=== PATIENT | male | born 1940 | race Caucasian/White ===

== ENCOUNTER → 2020-03-07 10:37 | Outpatient (CLI) | payer MEDICARE, SELFPAY ==
--- NOTE | ~2020-03-07 | CT_ITS ---
EXAMINATION: CTA abdomen pelvis DATE: 03/07/2020 11:14 INDICATION: Abdominal aortic aneurysm without rupture. TECHNIQUE: Computed tomographic angiography (CTA) of the abdomen and pelvis was performed without and with 100 mL Omnipaque-350 intravenous contrast. Automated exposure control and iterative reconstruct ion technique were employed. The dose-length product was 1879.24 mGy-cm. Maximum intensity projection 3D-reconstructions of the aorta and other arteries were constructed by the technologist on a [employer] workstation. COMPARISON: CT abdomen and pelvis 02/27/2019 FINDINGS: The visualized portions of the lung bases demonstrate emphysema and mild atelectasis. No pl eural effusion. The heart size is normal. There are coronary artery calcifications. No pericardial ef fusion. There is a moderate-sized sliding hiatal hernia. The liver, gallbladder, spleen, pancreas, an d adrenal glands are normal. There is cortical thinning of the kidneys. There are cysts in the kidney s measuring up to 4.0 cm on the right. There is a 2.0 cm hemorrhagic cyst in right kidney. There is a 2.2 cm hemorrhagic cyst in left kidney. The prostate is moderately enlarged. There is diverticulosis of the colon without evidence of diverticulitis. There are no dilated loops of bowel. The appendix i s not visualized. There are changes of ventral hernia repair. There is a supraumbilical ventral herni a containing fat superior to the mesh. There is a 4.0 cm fusiform aneurysm of infrarenal aorta with s tent graft in expected position. No endoleak. There is no significant stenosis of the celiac axis, myers perior mesenteric artery, or the renal arteries. 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 There is lumbar dextroscoliosis and severe spondylosis. IMPRESSION: 1. 4.0 cm fusiform aneurysm of infrarenal aorta with stent graft in expected position, stable from . No endoleak. 2. Moderate-sized sliding hiatal hernia. 3. Supraumbilical ventral hernia containing fat. Reviewed, dictated and finalized at location B. OILER IMPRESSION: 1. 4.0 cm fusiform aneurysm of infrarenal aorta with stent graft in expected po sition, stable from 02/27/2019. No endoleak. 2. Moderate-sized sliding hiatal hernia. 3. Supraumbilical ventral hernia containing fat.
[2020-03-07 10:59] LABS: Estimated Glomerular Filt Rate > 60
== END ==
PROVIDERS: Visit Provider Specialist
DX: I71.4 Abdominal aortic aneurysm, without rupture (principal); K44.9 Diaphragmatic hernia without obstruction or gangrene; K43.9 Ventral hernia without obstruction or gangrene; Z95.828 Presence of other vascular implants and grafts
CPT/HCPCS: 74174; Q9967

== ENCOUNTER 2020-05-29 10:53 | Emergency (ER) | payer MEDICARE, SELFPAY ==
--- NOTE | ~2020-05-29 | XR_ITS ---
EXAMINATION: XR ribs RT 2V w CXR 2V INDICATION: Right lateral rib pain TECHNIQUE: Frontal and lateral views of chest and 3 views of the right ribs were obtained. COMPARISON: 03/13/2018 FINDINGS: The lungs are free of acute opacities. There is no pleural effusion or pneumothorax. The ca rdiomediastinal silhouette is normal. There is cranial migration of the right humeral head with respe ct to the glenoid, consistent with chronic rotator cuff tear.No displaced rib fracture is identified. Endoluminal stent is noted in the abdominal aorta. IMPRESSION: 1. No acute cardiopulmonary abnormality or evidence of displaced rib fracture. Reviewed, dictated and finalized at location B.
[2020-05-29 11:15] VITALS: BP 142/84; PULSE 82; RESP 16; TEMP 36.4; O2SAT 98
--- NOTE | 2020-05-29 12:13 | ED.FALL ---
HPI - Fall General Chief Complaint: Fall <Benita Treviño PA-C - Last Filed: 05/29/20 12:55> Stated Complaint: fall pain R rib and back pain <DUSTIN Bustos Last Filed: 05/29/20 12:55> Time Seen by Provider: 05/29/20 11:18 <DUSTIN Bustos Last Filed: 05/29/20 12:55> Source: patient <DUSTIN Bustos Last Filed: 05/29/20 12:55> Mode of arrival: ambulatory <DUSTIN Bustos Last Filed: 05/29/20 12:55> Limitations: no limitations <DUSTIN Bustos Last Filed: 05/29/20 12:55> History of Present Illness HPI Narrative: This is a 80 year old male that presents to the ER for ground level fall 2 days ago. Reports he tripped and fell in his garden. Reports he hit his right side on part of the landscaping. Reports since he has had right lateral rib pain. Denies prodromal symptoms, hitting his head, loss of consciousness, other injuries, weakness, or numbness. <DUSTIN Bustos Last Filed: 05/29/20 12:55> Related Data Home Medications: Home Medications Medication Instructions Recorded Confirmed blood sugar diagnostic #10 each 12/27/18 03/28/20 nitroglycerin 0.4 mg sublingual 0.4 mg SUBLINGUAL Q5M PRN 12/27/18 03/28/20 tablet ticagrelor 90 mg tablet 90 mg PO Q12H 12/27/18 03/28/20 tiotropium bromide 2.5 2 puff INHALATION DAILY 12/27/18 03/28/20 mcg/actuation mist for inhalation bimatoprost 0.01 % eye drops 1 drop EACH EYE DAILY 09/27/19 03/28/20 <DUSTIN Bustos Last Filed: 05/29/20 12:55> Allergies/Adverse Reactions: Allergies Allergy/AdvReac Type Severity Reaction Status Date / Time cefprozil Allergy Unknown Rash Verified 03/28/20 09:15 celecoxib Allergy Unknown Unknown Verified 03/28/20 09:15 erythromycin base Allergy Unknown Unknown Verified 03/28/20 09:15 lisinopril Allergy Unknown Unknown Verified 03/28/20 09:15 Penicillins Allergy Unknown Unknown Verified 03/28/20 09:15 Cephalosporins AdvReac Severe DIAHHREA Verified 03/28/20 09:15 Prmendi-Sye-Vxy Reductase AdvReac Intermediate Other Verified 03/28/20 09:15 Inhibitor <Benita Treviño PA-C - Last Filed: 05/29/20 12:55> Review of Systems Review of Systems: Narrative: CONSTITUTIONAL: Denies fever MUSCULOSKELETAL: Reports joint pain, and myalgia. NEUROLOGIC: Denies numbness, or weakness. <Benita Treviño PA-C - Last Filed: 05/29/20 12:55> All systems reviewed & are unremarkable except as noted in HPI and below <Benita Treviño PA-C - Last Filed: 05/29/20 12:55> [facility] Past Medical History Medical History: Medical History Abscess of skin and subcutaneous tissue BPH loc w urin obs/LUTS COPD mixed type Epithelial inclusion cyst Former smoker GERD with esophagitis History of alcoholism Hypertension 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 thyroid function test senior care (current) use of 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/antiplatelets Lumbar spinal stenosis NICOLE on CPAP Osteoarthritis Presence of stent in coronary artery in patient with coronary artery disease PUD (peptic ulcer disease) PVD (peripheral vascular disease) with claudication Stable angina Type 2 diabetes mellitus <Benita Treviño PA-C - Last Filed: 05/29/20 12:55> Surgical History Surgical History: Surgical History H/O abdominal aortic aneurysm repair History of colon resection History of heart artery stent History of hernia surgery History of incision and drainage 03/14/20 back abscess History of total right hip arthroplasty S/P right rotator cuff repair <Benita Treviño PA-C - Last Filed: 05/29/20 12:55> Family History Family History: Family History Mother Family history of migraine headaches Hypertension Grandparent Hypertension Acute myocardial infarction Sibling Hypertension <Benita Treviño, DUSTIN - Lisbeth
== END 2020-05-29 13:10 | disposition home or self-care (01) ==
PROVIDERS: Emergency Provider General Practice; PCP Physician Assistant
DX: S20.211A Contusion of right front wall of thorax, initial encounter (principal); E11.51 Type 2 diabetes mellitus with diabetic peripheral angiopathy without gangrene; J44.9 Chronic obstructive pulmonary disease, unspecified; I10 Essential (primary) hypertension; I25.10 Atherosclerotic heart disease of native coronary artery without angina pectoris; N40.1 Benign prostatic hyperplasia with lower urinary tract symptoms; N13.8 Other obstructive and reflux uropathy; K21.00 Gastro-esophageal reflux disease with esophagitis, without bleeding; E03.9 Hypothyroidism, unspecified; G47.33 Obstructive sleep apnea (adult) (pediatric); M19.90 Unspecified osteoarthritis, unspecified site; Z95.5 Presence of coronary angioplasty implant and graft; Z87.11 Personal history of peptic ulcer disease; W01.198A Fall on same level from slipping, tripping and stumbling with subsequent striking against other object, initial encounter; Y93.H2 Activity, gardening and landscaping; Z87.891 Personal history of nicotine dependence; Z90.49 Acquired absence of other specified parts of digestive tract; Z96.641 Presence of right artificial hip joint; Z79.84 Long term (current) use of oral hypoglycemic drugs
CPT/HCPCS: 71046; 71100; 99283

== ENCOUNTER 2020-10-31 23:27 | Inpatient (IN) | payer MEDICARE, SELFPAY ==
--- NOTE | ~2020-10-31 | XR_ITS ---
EXAMINATION: XR abdomen obstructive series DATE: 11/02/2020 09:31 INDICATION: Constipation TECHNIQUE: Upright and supine views of the abdomen were obtained. COMPARISON: CT from yesterday FINDINGS: Multiple dilated loops of small bowel are present in the midabdomen. There is no free intra peritoneal gas. There is atelectasis of the lung bases. Changes of endoluminal aortobiiliac stent gra ft repair and mesh ventral hernia repair are noted. There is a total right hip arthroplasty. IMPRESSION: 1. Dilated small bowel consistent with ileus versus obstruction. Reviewed, dictated and finalized at location A.
--- NOTE | ~2020-10-31 | CT_ITS ---
EXAMINATION: CT diagnostic chest wo con DATE: 11/02/2020 01:02 INDICATION: Increasing oxygen demand TECHNIQUE: Computed tomography (CT) of the chest was performed without intravenous contrast. The dose -length product (DLP) was 556.96 mGy-cm. Automated exposure control and iterative reconstruction tech nique were employed. COMPARISON: None FINDINGS: There is moderate emphysema. There are dependent airspace opacities of the lungs, right gre ater than left. No pleural effusion or pneumothorax is identified. No pathologically enlarged thoraci c lymph nodes are identified. The heart size is normal. Calcified coronary artery atherosclerosis is noted. There is a 3.9 cm cyst of the right kidney. A moderate-sized sliding hiatal hernia is noted. T here is severe thoracic spondylosis. There are healing fractures of the right seventh through 10th ri bs. There is a questionable nondisplaced posterior fracture of the right 11th rib. There is advanced osteoarthritis of the right shoulder. IMPRESSION: 1. Dependent airspace opacities of the lungs which could reflect atelectasis and/or aspiration pneumo shay. 2. Healing right seventh through 10th rib fractures and possible nondisplaced 11th rib fracture. Reviewed, dictated and finalized at location A. IMPRESSION: 1. Dependent airspace opacities of the lungs which could reflect atelectasis an d/or aspiration pneumonia. 2. Healing right seventh through 10th rib fractures and possible nondisplaced 1 1th rib fracture.
--- NOTE | ~2020-10-31 | XR_ITS ---
EXAMINATION: XR abdomen NG/feed tube insert INDICATION: Nasogastric tube placement TECHNIQUE: Portable AP KUB-NG at 1123 hours COMPARISON: 0924 hours FINDINGS: The nasogastric tube is in the stomach. Multiple dilated loops of bowel are again seen. The re are airspace opacities of the visualized lung bases. IMPRESSION: 1. Nasogastric tube in the stomach. 2. Dilated small bowel consistent with ileus versus obstruction. Reviewed, dictated and finalized at location A.
--- NOTE | ~2020-10-31 | XR_ITS ---
SMALL BOWEL SERIES ONLY INDICATION: Small bowel obstruction. TECHNIQUE: Serial plain films and fluoroscopic spot films are performed following NG tube administrat ion of water-soluble contrast. COMPARISON: 11/03/2020 FINDINGS: There is mildly dilated proximal small bowel, although no specific transition site is ident ified. There is normal passage of water-soluble contrast through the small bowel to the colon of less than 1 hour. There is an aortic endovascular stent. There are changes of ventral abdominal wall hernia. There is a moderate size hiatal hernia with gastroesophageal reflux. IMPRESSION: 1: No definite bowel obstruction. Mildly dilated proximal small bowel may represent ileus. Normal pa ssage of contrast through the bowel to colon of less than 1 hour. 2: Moderate size hiatal hernia with gastroesophageal reflux. Reviewed, dictated and finalized at location A. IMPRESSION: 1: No definite bowel obstruction. Mildly dilated proximal small bowel may repr esent ileus. Normal passage of contrast through the bowel to colon of less than 1 hour. 2: Moderate size hiatal hernia with gastroesophageal reflux.
--- NOTE | ~2020-10-31 | XR_ITS ---
EXAMINATION: XR abdomen obstructive series DATE: 11/03/2020 10:21 INDICATION: Dilated small bowel. TECHNIQUE: Upright and supine views of the abdomen were obtained. COMPARISON: CT abdomen and pelvis 11/01/2020, radiographs 11/02/2020 FINDINGS: There are dilated loops of small bowel. There are surgical clips from ventral hernia repair . There is a stent graft in abdominal aorta. There is gaseous distention of the colon. No free intrap eritoneal gas. There is a total right hip arthroplasty. The nasogastric tube tip is in the stomach. IMPRESSION: 1. Dilated small and large bowel, likely adynamic ileus. Reviewed, dictated and finalized at location A.
--- NOTE | ~2020-10-31 | CT_ITS ---
EXAMINATION: CT abdomen pelvis w con INDICATION: Generalized abdominal pain and diarrhea TECHNIQUE: Computed tomographic images of the abdomen and pelvis were obtained after the administrati on of 100 cc of Omnipaque 350 intravenous contrast. The dose-length product (DLP) was 1043.57 mGy-cm. Automated exposure control and iterative reconstruction technique were employed. COMPARISON: 03/07/2020 FINDINGS: Minimal dependent atelectasis is present in the lung bases. The heart size is normal. Coron mary ann artery stents are noted. There are geographic areas of low attenuation throughout the spleen. The liver, pancreas, gallbladder, and adrenal glands are normal. There is a moderate-sized sliding hiata l hernia. Cysts of the kidneys measure up to 4 cm on the right. There is a 4.2 cm fusiform infrarenal abdominal aortic aneurysm with an aortobiiliac stent graft in expected position. No pathologically e nlarged abdominal or pelvic lymph nodes are identified. There is no free intraperitoneal gas or evide nce of bowel obstruction. There are changes of right total hip arthroplasty. There is severe lumbar s pondylosis. Changes of mesh ventral hernia repair are noted. IMPRESSION: 1. Geographic areas of low-attenuation in the spleen, likely reflecting infarction. Reviewed, dictated and finalized at location A. IMPRESSION: 1. Geographic areas of low-attenuation in the spleen, likely reflecting infarct ion.
[2020-10-31 23:29] VITALS: BP 144/88; PULSE 60; RESP 18; TEMP 36.1; O2SAT 95
[2020-10-31 23:47] LABS: Hematocrit 36.2 % (42.0-52.0); Hemoglobin 11.8 g/dL (14.0-18.0); Mean Corpuscular HGB Conc 32.6 g/dl (32-36); Mean Corpuscular Hemoglobin 29.1 pg (26-34); Mean Corpuscular Volume 89.2 fl (80-100); Mean Platelet Volume 9.9 fl (7.4-10.4); Platelet Count Result 227 k/mm3 (150-375); Red Blood Count 4.06 M/mm3 (4.6-6.20); White Blood Count 24.8 K/mm3 (4.5-10.0)
[2020-11-01] VITALS (24 sets, daily range): BP systolic 118–169; BP diastolic 56–120; PULSE 61–89; RESP 14–23; TEMP 36.1–37.1; O2SAT 91–100; BMI 28.8
[2020-11-01 00:10] LABS: Band Neutrophils Percent 15 % (0-6); Lymphocytes Absolute Manual 2.23 K/mm3 (1.1-4.5); Monocytes Absolute Manual 1.24 K/mm3 (0.1-0.90); Monocytes Percent Manual 5 % (3-9); Neutrophils Absolute Manual 21.32 K/mm3 (1.3-6.7); Neutrophils Percent Manual 71 % (46-73); Platelet Estimate Adequate (Adequate); Total Cells Counted 100
[2020-11-01 00:15] LABS: Alanine Aminotransferase 21 U/L (4-50); Albumin Level 3.8 g/dL (3.5-5.1); Alkaline Phosphatase 80 U/L (38-126); Anion Gap 11 mmol/L (8-16); Aspartate Amino Transferase 29 U/L (17-59); Bilirubin,Total 0.6 mg/dL (0.2-1.3); Blood Urea Nitrogen 17 mg/dL (9-20); Calcium 8.8 mg/dL (8.4-10.2); Carbon Dioxide 24 mmol/L (22-30); Chloride 99 mmol/L (98-107); Estimated CRCL calculation 61 ml/min; Estimated Glomerular Filt Rate > 60; Glucose 225 mg/dL (65-110); Lipase 109 U/L (23-300); Potassium 3.3 mmol/L (3.4-5.0); Sodium 134 mmol/L (137-145)
--- NOTE | 2020-11-01 01:48 | PC.NURSE ---
pt reports taking immodium for diarrhea last week. now c/o abd pain x last 3 hours. unable to recall last bowel movement.
[2020-11-01 02:19] LABS: Lactic Acid Reflex 1.2 mmol/L (0.7-2.1)
--- NOTE | 2020-11-01 03:36 | ED.GENADULT ---
HPI - General Adult General Chief complaint: Abdominal Pain Stated complaint: Abd pain, nausea Time Seen by Provider: 11/01/20 01:54 History of Present Illness HPI narrative: Patient is a 80-year-old gentleman who presents to the emergency department with chief complaint of abdominal pain. Patient reports for the last several days has been having diarrhea he has been taking Imodium for this [id number]. Patient states tonight his diarrhea has subsequently slowed down and reports that he has had some nausea and had one episode of. Patient denies fever denies chills denies localizing abdominal pain and reports that the diarrhea did not contain blood. Related Data Home Medications Medication Instructions Recorded Confirmed blood sugar diagnostic #10 each 12/27/18 09/12/20 nitroglycerin 0.4 mg sublingual 0.4 mg SUBLINGUAL Q5M PRN 12/27/18 09/12/20 tablet metformin 500 mg tablet,extended 1,000 mg PO BID tablet 09/12/20 09/12/20 release 24 hr Allergies Allergy/AdvReac Type Severity Reaction Status Date / Time cefprozil Allergy Unknown Rash Verified 09/12/20 14:31 celecoxib Allergy Unknown Unknown Verified 09/12/20 14:31 erythromycin base Allergy Unknown Unknown Verified 09/12/20 14:31 lisinopril Allergy Unknown Unknown Verified 09/12/20 14:31 Penicillins Allergy Unknown Unknown Verified 09/12/20 14:31 Cephalosporins AdvReac Severe DIAHHREA Verified 09/12/20 14:31 Mllkeid-Mmk-Bkf Reductase AdvReac Intermediate Other Verified 09/12/20 14:31 Inhibitor Review of Systems Review of Systems: A 10 system review of systems was completed on the patient and is negative except for what is stated in the HPI. Nursing and ancillary documentation was reviewed. [facility] Past Medical History Medical History Abscess of skin and subcutaneous tissue BPH loc w urin obs/LUTS CAD (coronary artery disease) COPD mixed type Epithelial inclusion cyst Former smoker GERD with esophagitis History of alcoholism Hypertension 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 thyroid function test senior living (current) use of 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/antiplatelets Lumbar spinal stenosis NICOLE on CPAP Osteoarthritis Presence of stent in coronary artery in patient with coronary artery disease PUD (peptic ulcer disease) PVD (peripheral vascular disease) with claudication Stable angina Type 2 diabetes mellitus Surgical History Surgical History H/O abdominal aortic aneurysm repair History of colon resection History of heart artery stent History of hernia surgery History of incision and drainage 03/14/20 back abscess History of total right hip arthroplasty S/P right rotator cuff repair Family History Family History Mother Family history of migraine headaches Hypertension Grandparent Hypertension Acute myocardial infarction Sibling Hypertension Social History Social History Second hand tobacco smoke exposure: No Smoking end date: 02/14/97 Alcohol intake: former Drinks per week: 0 Substance use: never Substance use type: does not use Gender identity (if verbalized by the patient): Male Exam Narrative: GENERAL: Well-appearing, well-nourished, and in no acute distress. HEAD: Normocephalic, atraumatic. EYES: PERRLA and EOMI. ENT: Nares clear, no rhinorrhea or epistaxis. Mucous membranes moist. NECK: Supple. CHEST: Clear to auscultation. No respiratory distress. HEART: Regular rate and rhythm. No murmur heard. Normal peripheral pulses. ABDOMEN: Soft, nontender, nondistended, normal active bowel sounds. EXTREMITIES: Normal range of motion. No edema. SKIN: Warm, dry, no rash. NEURO: No focal deficits. Alert and oriented x3. PSYCH: Normal mood and affect. Course Course Emergency Course: CT id
[2020-11-01 03:45] LABS: Add Urine Microscopic? YES; Appearance Urine Clear (Clear); Bilirubin Urine Negative (Negative); Blood Urine Negative (Negative); Color Urine Colorless (Yellow); Glucose Urine UA 3+ mg/dL (Negative); Ketones Urine Trace mg/dL (Negative); Leukocyte Esterase Ur Negative LEU/UL (Negative); Nitrate Urine Negative (Negative); Protein Urine Negative (Negative); RBC Urine 0-2 /hpf (0-2); Urobilinogen Urine Negative mg/dL (<2.0); WBC Urine 0-3 /hpf
[2020-11-01 03:52] LABS: Specific Grav Ur 1.045 (1.001-1.035)
--- NOTE | 2020-11-01 04:09 | PM.IMHP ---
H&P: HPI History of Present Illness Date/Time: 11/01/20 04:09 Chief Complaint: ABDOMINAL PAIN Narrative: THIS IS A 80-YEAR-OLD MALE WITH PAST MEDICAL HISTORY SIGNIFICANT FOR PERIPHERAL VASCULAR DISEASE, STATUS POST BILATERAL FEMORAL BYPASS, AAA STATUS POST REPAIR, OBSTRUCTIVE SLEEP APNEA ON CPAP AT NIGHTTIME TYPE 2 DIABETES MELLITUS, COPD/EMPHYSEMA. PATIENT PRESENTED TO THE EMERGENCY ROOM DUE TO ABDOMINAL PAIN WHICH IS LOCALIZED IN THE PERIUMBILICAL AREA PATIENT HAD HAS HAD DIARRHEA NOW FOR ROUGHLY 2 WEEKS HE STARTED TAKING IMODIUM AND DIARRHEA SUBSIDED HE DENIES ANY FEVERS, ANY RIGORS, ANY CHILLS, NO BLOOD IN THE STOOLS, NO SHORTNESS OF BREATH, NO COUGH, NO SPUTUM PRODUCTION, NO NAUSEA, NO VOMITING HE HAS BEEN ABLE TO TOLERATE HIS MEALS. PRELIMINARY WORKUP WAS SIGNIFICANT FOR A WHITE CELL COUNT OF 24,800, POTASSIUM OF 3.[address] OF ABDOMEN AND PELVIS SHOWS SPLENIC INFARCT A LACTIC ACID WAS 1.2. DECISION HAS BEEN MADE TO PLACE THE PATIENT IN OBSERVATION. Review of Systems Review of Systems: DIARRHEA ABDOMINAL PAIN Constitutional: Constitutional: Denies chills, Denies fatigue, Denies fever(s), Denies malaise and Denies weakness Eyes: Eyes: Denies change in vision ENT: Denies dysphagia and Denies odynophagia Cardiovascular: Cardiovascular: Denies lightheadedness, Denies radiating jaw, neck or arm pain, Denies palpitations, Denies dyspnea, Denies dyspnea on exertion and Denies orthopnea Respiratory: Respiratory: Denies cough and Denies dyspnea Gastrointestinal: Gastrointestinal: Reports abdominal pain, Reports diarrhea, Denies nausea and Denies vomiting Genitourinary: Genitourinary: Reports no additional male genitourinary complaints Musculoskeletal: Musculoskeletal: Reports no additional musculoskeletal complaints Integumentary/Breasts: Skin/Breast: Reports system reviewed and no additional complaints, except as docu Neurologic: Reports system reviewed and no additional complaints, except as documented Psychiatric: Psychiatric: Reports no additional psychiatric complaints Endocrine: Endocrine: Reports no additional endocrine complaints Hematologic/Lymphatic: Hematologic/Lymphatic: Reports no additional hematologic/lymphatic complaints Allergic/Immunologic: Allergic/Immunologic: Reports no additional allergic/immunologic complaints PMFSH Past Medical History Medical History (Updated 11/01/20 @ 04:44 by Shahriar Bullard MD) Abscess of skin and subcutaneous tissue BPH loc w urin obs/LUTS CAD (coronary artery disease) COPD mixed type Epithelial inclusion cyst Former smoker GERD with esophagitis History of alcoholism Hypertension 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 thyroid function test longterm (current) use of 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/antiplatelets Lumbar spinal stenosis NICOLE on CPAP Osteoarthritis Presence of stent in coronary artery in patient with coronary artery disease PUD (peptic ulcer disease) PVD (peripheral vascular disease) with claudication Stable angina Type 2 diabetes mellitus Surgical History Surgical History H/O abdominal aortic aneurysm repair History of colon resection History of heart artery stent History of hernia surgery History of incision and drainage 03/14/20 back abscess History of total right hip arthroplasty S/P right rotator cuff repair Family History Family History Mother Family history of migraine headaches Hypertension Grandparent Hypertension Acute myocardial infarction Sibling Hypertension Social History Social History Smoking packs per day: 2 Smoking cigarettes per day: 40.0 Years smoked: 40 Smoking pack-years: 80.00 Smoking status: Former smoker Second hand tobacco smoke exposure: No Smoking end date: 02/14/97 Alcohol intake: never Drinks per week: 0 Substance use: feroz
[2020-11-01 04:32] LABS: INR 1.2; Prothrombin Time 14.6 Seconds (11.1-14.7)
[2020-11-01 04:33] LABS: Partial Thromboplastin Time 32.2 SECONDS (22.3-36.8)
--- NOTE | 2020-11-01 04:39 | PC.NURSE ---
Pt's provided with room number and hospital phone number, and verbalized understanding that she will call back with correct dosages of pt's brillinta and spiriva.
[2020-11-01] MEDS: SODIUM CHLORIDE 0.9% IV 1,000 ML 125 ML IV CONT (05:00)
[2020-11-01] MEDS: MORPHINE SULFATE (*CRX) 4 MG/ML INJ IV PUSH ×3 (05:00→08:59)
[2020-11-01] MEDS: ONDANSETRON INJ 4 MG/2 ML VIAL IV PUSH (05:02)
[2020-11-01] MEDS: LEVOTHYROXINE SODIUM 125 MCG TABLET PO (06:36)
[2020-11-01 07:53] LABS: Glucose Point of Care 130 mg/dl (65-105)
[2020-11-01] MEDS: carvediloL 6.25 MG TABLET PO ×2 (08:47→20:57)
[2020-11-01] MEDS: ASPIRIN 81 MG ENTERIC TABLET PO (08:47)
[2020-11-01] MEDS: TAMSULOSIN HCL 0.4 MG CAPSULE PO (08:47)
[2020-11-01] MEDS: TICAGRELOR 90 MG TABLET PO ×2 (08:47→20:58)
[2020-11-01] MEDS: LOSARTAN POTASSIUM 25 MG TABLET PO (08:48)
[2020-11-01] MEDS: INSULIN ASPART (*BKC) 100 UNITS/ML SUB-Q ×3 (08:49→17:02)
--- NOTE | 2020-11-01 11:53 | PM.IMPN ---
Progress Note: A&P Assessment and Plan (1) Abdominal pain: Code(s): R10.9 - Unspecified abdominal pain Status: Acute Assessment and Plan: LACTIC ACID IS 1.2 ABDOMEN IS BENIGN ON PHYSICAL EXAM PLACE IN OBSERVATION IV FLUIDS CT ABDOMEN AND PELVIS ordered (2) Infarction of spleen: Code(s): D73.5 - Infarction of spleen Status: Acute Assessment and Plan: LACTIC ACID IS 1.2 PHYSICAL EXAM NO NO CYANOSIS PATENT PULSES 2+ ALL THROUGHOUT CONTINUE TO MONITOR (3) CAD (coronary artery disease): Qualifiers: Coronary Disease-Associated Artery/Lesion type: unspecified vessel or lesion type [place] vs. transplanted heart: [place] heart Associated angina: with stable angina Qualified Code(s): I25.118 - Atherosclerotic heart disease of [place] coronary artery with other forms of angina pectoris Code(s): I25.10 - Atherosclerotic heart disease of [place] coronary artery without angina pectoris Status: Acute Assessment and Plan: CHEST PAIN-FREE RESUME HOME MEDS CONTINUE TICAGRELOR (4) Presence of stent in coronary artery in patient with coronary artery disease: Code(s): I25.10 - Atherosclerotic heart disease of [place] coronary artery without angina pectoris; Z95.5 - Presence of coronary angioplasty implant and graft Status: Acute Assessment and Plan: RESUME HOME MEDS STABLE (5) PVD (peripheral vascular disease) with claudication: Code(s): I73.9 - Peripheral vascular disease, unspecified Status: Acute Assessment and Plan: PATIENT IS STATUS POST BILATERAL FEMORAL BYPASS (6) Former smoker: Code(s): Z87.891 - Personal history of nicotine dependence Status: Acute Assessment and Plan: NICOTINE PATCH NEEDED (7) COPD mixed type: Code(s): J44.9 - Chronic obstructive pulmonary disease, unspecified Status: Acute Assessment and Plan: CONTINUE HOME MEDS NOT ACTIVELY WHEEZING (8) NICOLE on CPAP: Code(s): G47.33 - Obstructive sleep apnea (adult) (pediatric); Z99.89 - Dependence on other enabling machines and devices Status: Acute Assessment and Plan: CONTINUE CPAP (9) Type 2 diabetes mellitus: Qualifiers: Diabetes mellitus fpc insulin use: without terminal system operator use Diabetes mellitus complication status: with other specified complication Qualified Code(s): E11.69 - Type 2 diabetes mellitus with other specified complication Code(s): E11.9 - Type 2 diabetes mellitus without complications Status: Acute Assessment and Plan: ACCU-CHEKS AC AND HS CONTROL WITH ORAL AGENTS WILL HOLD METFORMIN AND PIOGLITAZONE INSULIN SLIDING SCALE NEEDED (10) GERD with esophagitis: Code(s): K21.0 - Gastro-esophageal reflux disease with esophagitis Status: Acute Subjective Date/time seen: 11/01/20 11:53 Patient was seen during the morning rounds today. Patient states that his abdominal pain is slightly better. No nausea or vomiting. No shortness of breath or chest pain. Mood stable. Review of Systems Review of Systems: All systems reviewed & are unremarkable except as noted in HPI and below (the history and physical examination.) Exam Narrative: PATIENT IS LAYING IN GURNEY Const: General: cooperative, comfortable, no acute distress, well developed, alert, awake and other (WELL-APPEARING) Nutritional Appearance: average body habitus Orientation/consciousness: patient oriented x3 HENMT: Head: normal to inspection, normocephalic and atraumatic Ears: hearing grossly normal bilaterally General nose exam: Normal external nose present Face and sinus: normal facial exam Eyes: General: appearance normal, both eyes and all related structures Alignment and Position: alignment normal Sclera: sclerae normal Pupils: Equal, round and reactive pupils present EOM: EOMs intact bilaterally Neck: Neck: normal visual inspection, full ROM, no lymphadenopathy, supple
[2020-11-01] MEDS: HYDROcodone/acetaminophen (*CRX) 10-325 MG TABLET 1 TAB PO (12:50)
[2020-11-01] MEDS: DOCUSATE SODIUM 100 MG CAPSULE PO ×2 (12:53→20:58)
[2020-11-01] MEDS: SODIUM CHLORIDE 0.9% IV 1,000 ML 50 ML IV CONT (12:56)
[2020-11-01 13:22] LABS: Glucose Point of Care 136 mg/dl (65-105)
[2020-11-01] MEDS: POTASSIUM CHLORIDE 20 MEQ PACKET (FOR LIQUID) 40 MEQ PO (14:22)
[2020-11-01] MEDS: metroNIDAZOLE 500 MG/ISO 100ML 500 MG/100 ML BAG 100 MG IVPB ×2 (15:32→20:58)
[2020-11-01] MEDS: levoFLOXacin 500 MG/D5W 100 ML 500 MG/100 ML BAG 100 MG IVPB (16:47)
[2020-11-01 18:19] LABS: Glucose Point of Care 165 mg/dl (65-105)
[2020-11-01] MEDS: HEPARIN SODIUM 5,000 UNITS/ML VIAL 5000 UNITS SUB-Q (20:58)
[2020-11-01 21:11] LABS: Glucose Point of Care 206 mg/dl (65-105)
--- NOTE | 2020-11-01 21:17 | PC.NURSE ---
Pt having increasing oxygen demands, no documented sp02 from days, pt not on oxygen normally at home, placed pt on 2L to maintain 91%. Pt does have a hx of sleep apnea and COPD. Respiratory called x2 to get a further assessment. Will continue to monitor and wait for respiratory comments.
[2020-11-02] MEDS: HYDROcodone/acetaminophen (*CRX) 10-325 MG TABLET 1 TAB PO (00:45)
[2020-11-02] MEDS: metroNIDAZOLE 500 MG/ISO 100ML 500 MG/100 ML BAG 100 MG IVPB ×4 (03:16→21:28)
[2020-11-02 05:33] LABS: Hematocrit 31.5 % (42.0-52.0); Hemoglobin 10.3 g/dL (14.0-18.0); Mean Corpuscular HGB Conc 32.7 g/dl (32-36); Mean Corpuscular Hemoglobin 29.1 pg (26-34); Mean Platelet Volume 10.1 fl (7.4-10.4); Platelet Count Result 195 k/mm3 (150-375); Red Blood Count 3.54 M/mm3 (4.6-6.20); Red Cell Distribution Width 15.2 % (11.5-14.5); White Blood Count 25.7 K/mm3 (4.5-10.0)
[2020-11-02 05:40] VITALS: BP 103/58; PULSE 75; RESP 20; TEMP 36.1; O2SAT 94
--- NOTE | 2020-11-02 05:50 | PC.NURSE ---
I made several calls to the CT department and notified live in housekeeper, SHADE Doss, that my patients CT report was never read. I was never called or faxed a report. The order was STAT and it has been over five hours without notification from [facility].
[2020-11-02 05:51] LABS: Alanine Aminotransferase 14 U/L (4-50); Alkaline Phosphatase 66 U/L (38-126); Anion Gap 8 mmol/L (8-16); Aspartate Amino Transferase 16 U/L (17-59); Bilirubin,Total 0.7 mg/dL (0.2-1.3); Blood Urea Nitrogen 17 mg/dL (9-20); Calcium 8.2 mg/dL (8.4-10.2); Carbon Dioxide 24 mmol/L (22-30); Chloride 102 mmol/L (98-107); Estimated CRCL calculation 44 ml/min; Estimated Glomerular Filt Rate > 60; Glucose 164 mg/dL (65-110); Potassium 3.7 mmol/L (3.4-5.0); Sodium 134 mmol/L (137-145)
[2020-11-02 05:57] LABS: Band Neutrophils Percent 7 % (0-6); Lymphocytes Absolute Manual 1.02 K/mm3 (1.1-4.5); Monocytes Absolute Manual 0.51 K/mm3 (0.1-0.90); Monocytes Percent Manual 2 % (3-9); Neutrophils Absolute Manual 24.15 K/mm3 (1.3-6.7); Neutrophils Percent Manual 87 % (46-73); Total Cells Counted 100
[2020-11-02 05:58] LABS: Platelet Estimate Adequate (Adequate)
[2020-11-02] MEDS: LEVOTHYROXINE SODIUM 125 MCG TABLET PO (06:13)
[2020-11-02] MEDS: INSULIN ASPART (*BKC) 100 UNITS/ML SUB-Q (08:15)
[2020-11-02] MEDS: TICAGRELOR 90 MG TABLET PO (08:17)
[2020-11-02 08:18] VITALS: PULSE 75
[2020-11-02] MEDS: ASPIRIN 81 MG ENTERIC TABLET PO (08:18)
[2020-11-02] MEDS: HEPARIN SODIUM 5,000 UNITS/ML VIAL 5000 UNITS SUB-Q ×2 (08:18→21:28)
[2020-11-02] MEDS: DOCUSATE SODIUM 100 MG CAPSULE PO (08:18)
[2020-11-02] MEDS: carvediloL 6.25 MG TABLET PO (08:18)
[2020-11-02] MEDS: LOSARTAN POTASSIUM 25 MG TABLET PO (08:18)
[2020-11-02] MEDS: TAMSULOSIN HCL 0.4 MG CAPSULE PO (08:18)
[2020-11-02 08:26] VITALS: O2SAT 92
[2020-11-02 08:35] LABS: Glucose Point of Care 179 mg/dl (65-105)
--- NOTE | 2020-11-02 10:43 | PM.IMPN ---
Progress Note: A&P Assessment and Plan (1) Abdominal pain: Code(s): R10.9 - Unspecified abdominal pain Status: Acute Assessment and Plan: 11/02/2020 three views abdominal today shows for possible ileus versus obstruction, will put NG tube and consult surgery. (2) Infarction of spleen: Code(s): D73.5 - Infarction of spleen Status: Acute Assessment and Plan: LACTIC ACID IS 1.2 PHYSICAL EXAM NO NO CYANOSIS PATENT PULSES 2+ ALL THROUGHOUT CONTINUE TO MONITOR (3) CAD (coronary artery disease): Qualifiers: Coronary Disease-Associated Artery/Lesion type: unspecified vessel or lesion type [place] vs. transplanted heart: [place] heart Associated angina: with stable angina Qualified Code(s): I25.118 - Atherosclerotic heart disease of [place] coronary artery with other forms of angina pectoris Code(s): I25.10 - Atherosclerotic heart disease of [place] coronary artery without angina pectoris Status: Acute Assessment and Plan: CHEST PAIN-FREE RESUME HOME MEDS CONTINUE TICAGRELOR (4) Presence of stent in coronary artery in patient with coronary artery disease: Code(s): I25.10 - Atherosclerotic heart disease of [place] coronary artery without angina pectoris; Z95.5 - Presence of coronary angioplasty implant and graft Status: Acute Assessment and Plan: RESUME HOME MEDS STABLE (5) PVD (peripheral vascular disease) with claudication: Code(s): I73.9 - Peripheral vascular disease, unspecified Status: Acute Assessment and Plan: PATIENT IS STATUS POST BILATERAL FEMORAL BYPASS (6) Former smoker: Code(s): Z87.891 - Personal history of nicotine dependence Status: Acute Assessment and Plan: NICOTINE PATCH NEEDED (7) COPD mixed type: Code(s): J44.9 - Chronic obstructive pulmonary disease, unspecified Status: Acute Assessment and Plan: CONTINUE HOME MEDS NOT ACTIVELY WHEEZING (8) NICOLE on CPAP: Code(s): G47.33 - Obstructive sleep apnea (adult) (pediatric); Z99.89 - Dependence on other enabling machines and devices Status: Acute Assessment and Plan: CONTINUE CPAP (9) Type 2 diabetes mellitus: Qualifiers: 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 mellitus 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 Will consult surgery and put NG tube. WBC count is slightly high. Will add vancomycin to Levaquin and Flagyl. Monitor electrolytes and CBC in the morning and repeat three views of the abdomen the morning. Subjective Date/time seen: 11/02/20 10:43 Patient was seen during the morning rounds today. Patient complained of having abdominal pain and distension. Was not able to have bowel movement. Patient is not passing gas. No shortness of breath or chest pain. No nausea or vomiting. Mood stable. Review of Systems Review of Systems: All systems reviewed & are unremarkable except as noted in HPI and below (the history and physical examination.) Constitutional: Constitutional: Denies chills, Denies fatigue, Denies fever(s), Denies malaise and Denies weakness Eyes: Eyes: Denies change in vision ENT: Denies dysphagia and Denies odynophagia Cardiovascular: Cardiovascular: Denies lightheadedness, Denies radiating jaw, neck or arm pain, Denies palpitations, Denies dyspnea, Denies dyspnea on exertion and Denies orthop
[2020-11-02] MEDS: KCL 20MEQ/0.9% SOD CHL 1,000 ML 100 ML IV CONT ×2 (10:58→21:28)
[2020-11-02 11:25] VITALS: O2SAT 92
[2020-11-02 11:26] LABS: Estimated CRCL calculation 49 ml/min; Estimated Glomerular Filt Rate > 60
[2020-11-02 12:39] LABS: Glucose Point of Care 181 mg/dl (65-105)
[2020-11-02] MEDS: levoFLOXacin 500 MG/D5W 100 ML 500 MG/100 ML BAG 100 MG IVPB (14:09)
[2020-11-02 15:15] VITALS: BP 111/89; PULSE 76; RESP 24; TEMP 36.4; O2SAT 95
[2020-11-02 18:05] LABS: Glucose Point of Care 117 mg/dl (65-105)
[2020-11-02 22:00] VITALS: BP 115/61; PULSE 78; RESP 16; TEMP 36.4; O2SAT 95
[2020-11-03] VITALS (7 sets, daily range): BP systolic 104–129; BP diastolic 55–70; PULSE 78–88; RESP 16–18; TEMP 36.7–36.9; O2SAT 90–96
[2020-11-03 00:53] LABS: Glucose Point of Care 159 mg/dl (65-105)
[2020-11-03] MEDS: metroNIDAZOLE 500 MG/ISO 100ML 500 MG/100 ML BAG 100 MG IVPB ×4 (03:04→21:33)
[2020-11-03 05:34] LABS: Hematocrit 31.3 % (42.0-52.0); Hemoglobin 10.2 g/dL (14.0-18.0); Mean Corpuscular HGB Conc 32.6 g/dl (32-36); Mean Corpuscular Hemoglobin 29.1 pg (26-34); Mean Corpuscular Volume 89.4 fl (80-100); Mean Platelet Volume 9.9 fl (7.4-10.4); Platelet Count Result 199 k/mm3 (150-375); Red Cell Distribution Width 15.2 % (11.5-14.5); White Blood Count 22.1 K/mm3 (4.5-10.0)
[2020-11-03 05:45] LABS: Alanine Aminotransferase 12 U/L (4-50); Albumin Level 2.8 g/dL (3.5-5.1); Alkaline Phosphatase 71 U/L (38-126); Anion Gap 7 mmol/L (8-16); Aspartate Amino Transferase 16 U/L (17-59); Bilirubin,Total 0.5 mg/dL (0.2-1.3); Blood Urea Nitrogen 16 mg/dL (9-20); Calcium 8.1 mg/dL (8.4-10.2); Carbon Dioxide 20 mmol/L (22-30); Chloride 104 mmol/L (98-107); Estimated CRCL calculation 54 ml/min; Estimated Glomerular Filt Rate > 60; Glucose 138 mg/dL (65-110); Potassium 3.8 mmol/L (3.4-5.0); Sodium 131 mmol/L (137-145)
[2020-11-03] MEDS: LEVOTHYROXINE SODIUM INJ 100 MCG/5 ML VIAL 62.5 MCG IV PUSH (06:17)
[2020-11-03] MEDS: ONDANSETRON INJ 4 MG/2 ML VIAL IV PUSH (06:19)
[2020-11-03 07:00] LABS: Glucose Point of Care 144 mg/dl (65-105)
--- NOTE | 2020-11-03 08:49 | PM.CNGS ---
Assessment and Plan Assessment and plan (1) Small bowel obstruction: Code(s): K56.609 - Unspecified intestinal obstruction, unspecified as to partial versus complete obstruction Status: Acute Assessment and Plan: will get SBS thru NG for further evaluation (2) Leukocytosis: Code(s): D72.829 - Elevated white blood cell count, unspecified Status: Acute Assessment and Plan: ? etiology, on broad spectrum abx per primary team History of Present Illness Consult details Consult date: 11/03/20 Reason for consult: abdominal pain Requesting physician: Cal Espitia MD Narrative: Pt is a 80 y/o M c multiple med issues presenting c/o diffuse abdominal pain R>L. Pt reports pain has been off and on over last wk or two. Pt reports pain was initially associated c diarrhea but he has since not had a BM for at least a wk. Pt reports some nausea and emesis. Pt denies previous episodes. Pt has been admitted and NG has been placed at this time. Review of Systems Constitutional: Constitutional: Denies anorexia, Denies chills, Reports fatigue, Denies fever(s), Reports malaise, Reports poor appetite, Reports weakness, Denies weight gain and Denies weight loss Eyes: Eyes: Reports no additional eye complaints ENT: Reports system reviewed and no additional complaints, except as documented Cardiovascular: Cardiovascular: Reports no additional cardiovascular complaints Respiratory: Respiratory: Reports no additional respiratory complaints Gastrointestinal: Gastrointestinal: Reports as per HPI, Reports abdominal pain, Reports belching, Reports bloating, Reports change in stool character, Reports constipation, Reports GI cramping, Reports early satiety, Reports diarrhea, Reports nausea and Reports vomiting Genitourinary: Genitourinary: Reports no additional male genitourinary complaints Musculoskeletal: Musculoskeletal: Reports no additional musculoskeletal complaints Integumentary/Breasts: Skin/Breast: Reports system reviewed and no additional complaints, except as docu Neurologic: Reports system reviewed and no additional complaints, except as documented Psychiatric: Psychiatric: Reports no additional psychiatric complaints Endocrine: Endocrine: Reports no additional endocrine complaints Hematologic/Lymphatic: Hematologic/Lymphatic: Reports no additional hematologic/lymphatic complaints Allergic/Immunologic: Allergic/Immunologic: Reports no additional allergic/immunologic complaints PMFSH Past Medical History Medical History Abscess of skin and subcutaneous tissue BPH loc w urin obs/LUTS CAD (coronary artery disease) COPD mixed type Epithelial inclusion cyst Former smoker GERD with esophagitis History of alcoholism Hypertension 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 thyroid 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/antiplatelets Lumbar spinal stenosis NICOLE on CPAP Osteoarthritis Presence of stent in coronary artery in patient with coronary artery disease PUD (peptic ulcer disease) PVD (peripheral vascular disease) with claudication Stable angina Type 2 diabetes mellitus Surgical History Surgical History H/O abdominal aortic aneurysm repair History of colon resection History of heart artery stent History of hernia surgery History of incision and drainage 03/14/20 back abscess History of total right hip arthroplasty S/P right rotator cuff repair Family History Family History Mother Family history of migraine headaches Hypertension Colon cancer Grandparent Acute myocardial infarction Hypertension Sibling Hypertension Brain aneurysm Father Myocardial infarction Social History Social History Smoking packs per day: 2 Smoking cigarettes per day: 40.0 Years smoke
[2020-11-03] MEDS: KCL 20MEQ/0.9% SOD CHL 1,000 ML 100 ML IV CONT (09:15)
[2020-11-03] MEDS: PANTOPRAZOLE SODIUM IV 40 MG VIAL IV PUSH (09:17)
[2020-11-03] MEDS: HEPARIN SODIUM 5,000 UNITS/ML VIAL 5000 UNITS SUB-Q ×2 (09:17→21:23)
[2020-11-03 11:58] LABS: Glucose Point of Care 131 mg/dl (65-105)
[2020-11-03] MEDS: levoFLOXacin 500 MG/D5W 100 ML 500 MG/100 ML BAG 100 MG IVPB (14:02)
[2020-11-03 16:52] LABS: Glucose Point of Care 124 mg/dl (65-105)
--- NOTE | 2020-11-03 18:32 | PM.IMPN ---
Progress Note: A&P Assessment and Plan (1) Small bowel obstruction: Code(s): K56.609 - Unspecified intestinal obstruction, unspecified as to partial versus complete obstruction Status: Acute (2) Leukocytosis: Code(s): D72.829 - Elevated white blood cell count, unspecified Status: Acute Assessment and Plan: Likely reactive in the setting of acute ileus. Continue levaquin and flagyl. Stop the vancomycin. (3) Abdominal pain: Code(s): R10.9 - Unspecified abdominal pain Status: Acute Assessment and Plan: 11/02/2020 three views abdominal Xray shows for possible ileus versus obstruction. Currently patient having bowel movements. Abdomen improving clinically. Continue NG tube suction. Follow up surgery recommendations.. (4) Infarction of spleen: Code(s): D73.5 - Infarction of spleen Status: Acute Assessment and Plan: Patient is hemodynamically stable with improvement of abdominal symptoms. Continue to monitor. (5) CAD (coronary artery disease): Qualifiers: Coronary Disease-Associated Artery/Lesion type: unspecified vessel or lesion type [place] vs. transplanted heart: [place] heart Associated angina: with stable angina Qualified Code(s): I25.118 - Atherosclerotic heart disease of [place] coronary artery with other forms of angina pectoris Code(s): I25.10 - Atherosclerotic heart disease of [place] coronary artery without angina pectoris Status: Acute Assessment and Plan: Currently asymptomatic. Continue home ticagrelor. (6) Presence of stent in coronary artery in patient with coronary artery disease: Code(s): I25.10 - Atherosclerotic heart disease of [place] coronary artery without angina pectoris; Z95.5 - Presence of coronary angioplasty implant and graft Status: Acute Assessment and Plan: Resume home medications. (7) PVD (peripheral vascular disease) with claudication: Code(s): I73.9 - Peripheral vascular disease, unspecified Status: Acute Assessment and Plan: s/p post bilateral femoral bypass. (8) Former smoker: Code(s): Z87.891 - Personal history of nicotine dependence Status: Acute Assessment and Plan: Nicotine patch as needed. (9) COPD mixed type: Code(s): J44.9 - Chronic obstructive pulmonary disease, unspecified Status: Acute Assessment and Plan: Currently asymptomatic. Saturates well on oxygen 2 liters.. Continue home medications. (10) NICOLE on CPAP: Code(s): G47.33 - Obstructive sleep apnea (adult) (pediatric); Z99.89 - Dependence on other enabling machines and devices Status: Acute Assessment and Plan: Continue CPAP per home parameters. 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 Currently on insulin sliding scale as needed. Monitor accu-checks AC and HS. Control with oral agents. Continue to hold metformin and pioglitazone. Accuchecks in the 117-159 range. No episode of hypoglycemia. (12) GERD with esophagitis: Code(s): K21.0 - Gastro-esophageal reflux disease with esophagitis Status: Acute Additional Plan 11/02/2020 three views of the abdomen shows ileus versus obstruction. Will consult surgery and put NG tube. WBC count is slightly high. Will add vancomycin to Levaquin and Flagyl. Monitor electrolytes and CBC in the morning and repeat three views of the abdomen the morning. Subjective Date/time seen: 11/03/20 17:30 This is a 80-year old gentleman with peripheral vascular disease, s/p bilateral femoral bypass, AAA status s/p repair, NICOLE on CPAP, NIDDM, CO
[2020-11-03 22:25] LABS: Glucose Point of Care 122 mg/dl (65-105)
[2020-11-04] MEDS: KCL 20MEQ/0.9% SOD CHL 1,000 ML 100 ML IV CONT ×2 (01:40→13:50)
[2020-11-04] MEDS: metroNIDAZOLE 500 MG/ISO 100ML 500 MG/100 ML BAG 100 MG IVPB ×4 (01:53→22:54)
[2020-11-04 06:00] VITALS: BP 131/79; PULSE 77; RESP 16; TEMP 36.8; O2SAT 93
[2020-11-04] MEDS: LEVOTHYROXINE SODIUM INJ 100 MCG/5 ML VIAL 62.5 MCG IV PUSH (06:26)
[2020-11-04 08:03] VITALS: O2SAT 90
[2020-11-04 08:58] LABS: Glucose Point of Care 133 mg/dl (65-105)
--- NOTE | 2020-11-04 09:15 | PM.PNGS ---
Progress Note: A&P Assessment and Plan (1) Small bowel obstruction: Code(s): K56.609 - Unspecified intestinal obstruction, unspecified as to partial versus complete obstruction Status: Acute Assessment and Plan: Pt clinically improving. +BM, abd exam benign. SBS showed contrast moving to the colon in 1 hr. Will clamp NG today and if he tolerates this, then will remove NG tube and ADAT. Encouraged walking the halls, increasing activity. (2) Leukocytosis: Code(s): D72.829 - Elevated white blood cell count, unspecified Status: Acute Assessment and Plan: Unclear etiology. WBC trending down, no labs in yet this morning. Continue broad-spectrum IV abx per primary team. Additional Plan I have discussed the plan of care with Dr. Yañez. Subjective Subjective Date/Time Seen: 11/04/20 09:15 Patient reports: no new complaints, feels better, pain is less, flatus and bowel movement Interval history: Patient seen and examined this morning. He reports feeling much better than on admission. Reports 8-9 bowel movements since the contrast study. Abdominal pain and bloating has improved significantly. Now reporting just soreness in the right abdomen. No other complaints at this time. Review of Systems Gastrointestinal: Gastrointestinal: Reports as per HPI, Reports no additional gastrointestinal complaints, Denies hematochezia, Denies nausea and Denies vomiting Exam Const: General: comfortable and no acute distress Orientation/consciousness: patient oriented x3 Resp: Effort & Inspection: normal respiratory effort Auscultation: clear to auscultation bilaterally Cardio: Rate: regular rate Rhythm: regular rhythm GI: Inspection: other (mildly distended) GI Palp: Yes Soft to palpation, No Tenderness to palpation present (GI), No Guarding due to palpation present (GI) and No Rebound tenderness present Auscultation: normal bowel sounds Neuro: General: moves all extremities and no focal motor deficits Extrem: General: no clubbing, cyanosis or edema Psych: Mental Status: mental status grossly normal Insight: Good insight present (Psych) Judgement: Good judgement present (Psych) Objective Data Vital Signs Vital Signs: Vital Signs - 24 hr 11/03/20 09:17 11/03/20 14:00 11/03/20 14:31 Temperature 98.4 F Pulse Rate 88 Respiratory Rate 18 18 Blood Pressure 126/70 Pulse Oximetry 96 90 96 11/03/20 19:55 11/03/20 22:00 11/04/20 06:00 Temperature 98.2 F 98.2 F Pulse Rate 78 80 77 Respiratory Rate 16 16 Blood Pressure 104/55 L 131/79 Pulse Oximetry 94 93 93 11/04/20 08:03 Temperature Pulse Rate Respiratory Rate Blood Pressure Pulse Oximetry 90 Intake/Output Intake/Output: Intake & Output 11/01/20 11/02/20 11/03/20 11/04/20 23:59 23:59 23:59 23:59 Intake Total 2990 3100 2750 100 Output Total 558 142 9182 140 Balance 2840 3235 -500 -40 Meds/Results Medications: Active Medications Generic Name Dose Route Start Last Admin Trade Name Nancy PRN Reason Stop Dose Admin Aspirin 81 mg 11/01/20 09:00 11/02/20 08:18 Aspirin 81 Mg Enteric Tablet PO 81 mg DAILY MURALI Administration Carvedilol 6.25 mg 11/01/20 09:00 11/02/20 08:18 Carvedilol 6.25 Mg Tablet PO 6.25 mg Q12HR MURALI Administration Docusate Sodium 100 mg 11/01/20 12:30 11/02/20 08:18 Docusate Sodium 100 Mg Capsule PO 100 mg Q12HR MURALI Administration Heparin Sodium (Porcine) 5,000 units 11/01/20 21:00 11/03/20 21:23 Heparin Sodium 5,000 Units/Ml Vial SUB-Q 5,000 units Q12HR MURALI Administration Levofloxacin/Dextrose 500 mg in 100 mls @ 100 mls/hr 11/01/20 15:00 11/03/20 15:05 Levaquin 500 Mg/D5w 100 Ml IVPB Infused Q24H MURALI Infusion Metronidazole 500 mg in 100 mls @ 100 mls/hr 11/01/20 15:00 11/04/20 02:54 Flagyl 500 Mg/Iso Soln 100 Ml IVPB Infused Q6H MURALI Infusion Potassium Chloride/Sodium Chloride 1,000 mls @ 100 mls/hr 11/02/20 10:40
[2020-11-04 09:53] VITALS: RESP 16; O2SAT 90
[2020-11-04] MEDS: PANTOPRAZOLE SODIUM IV 40 MG VIAL IV PUSH (09:53)
[2020-11-04] MEDS: HEPARIN SODIUM 5,000 UNITS/ML VIAL 5000 UNITS SUB-Q ×2 (09:53→22:56)
[2020-11-04 11:53] LABS: Glucose Point of Care 126 mg/dl (65-105)
--- NOTE | 2020-11-04 13:09 | PM.PNGS ---
Progress Note: A&P Assessment and Plan (1) Small bowel obstruction: Code(s): K56.609 - Unspecified intestinal obstruction, unspecified as to partial versus complete obstruction Status: Acute Assessment and Plan: resolving, clamp NG, likely dc NG later today and start clears, encourage OOB, ambulation Subjective Subjective Date/Time Seen: 11/04/20 13:09 feels better, having multiple, loose BMs Review of Systems Review of Systems: All systems reviewed & are unremarkable except as noted in HPI and below Exam Const: General: cooperative, comfortable and no acute distress Resp: Effort & Inspection: normal respiratory effort Auscultation: clear to auscultation bilaterally Cardio: Rate: regular rate Rhythm: regular rhythm GI: Inspection: normal to inspection and distended GI Palp: Yes Soft to palpation and No Tenderness to palpation present (GI) Other: soft, sl dist, NT, +bs Objective Data Vital Signs Vital Signs: Vital Signs - 24 hr 11/03/20 14:00 11/03/20 14:31 11/03/20 19:55 Temperature 36.9 C Pulse Rate 88 78 Respiratory Rate 18 Blood Pressure 126/70 Pulse Oximetry 90 96 94 11/03/20 22:00 11/04/20 06:00 11/04/20 08:03 Temperature 36.8 C 36.8 C Pulse Rate 80 77 Respiratory Rate 16 16 Blood Pressure 104/55 L 131/79 Pulse Oximetry 93 93 90 11/04/20 09:53 Temperature Pulse Rate Respiratory Rate 16 Blood Pressure Pulse Oximetry 90 Intake/Output Intake/Output: Intake & Output 11/01/20 11/02/20 11/03/20 11/04/20 23:59 23:59 23:59 23:59 Intake Total 2990 3100 2750 200 Output Total 823 259 9064 140 Balance 2840 2425 -500 60 Meds/Results Medications: Active Medications Generic Name Dose Route Start Last Admin Trade Name Freq PRN Reason Stop Dose Admin Aspirin 81 mg 11/01/20 09:00 11/02/20 08:18 Aspirin 81 Mg Enteric Tablet PO 81 mg DAILY MURALI Administration Carvedilol 6.25 mg 11/01/20 09:00 11/02/20 08:18 Carvedilol 6.25 Mg Tablet PO 6.25 mg Q12HR MURALI Administration Docusate Sodium 100 mg 11/01/20 12:30 11/02/20 08:18 Docusate Sodium 100 Mg Capsule PO 100 mg Q12HR MURALI Administration Heparin Sodium (Porcine) 5,000 units 11/01/20 21:00 11/04/20 09:53 Heparin Sodium 5,000 Units/Ml Vial SUB-Q 5,000 units Q12HR MURALI Administration Levofloxacin/Dextrose 500 mg in 100 mls @ 100 mls/hr 11/01/20 15:00 11/03/20 15:05 Levaquin 500 Mg/D5w 100 Ml IVPB Infused Q24H MURALI Infusion Metronidazole 500 mg in 100 mls @ 100 mls/hr 11/01/20 15:00 11/04/20 10:54 Flagyl 500 Mg/Iso Soln 100 Ml IVPB Infused Q6H [facility] Infusion Insulin Aspart 4 units 11/01/20 08:00 11/02/20 08:15 Insulin Aspart (*Bkc) 100 Units/Ml 0.05 units/kg (4 units) 4 units SUB-Q Administration TIDWM [facility] Levothyroxine Sodium 62.5 mcg 11/03/20 06:30 11/04/20 06:26 Levothyroxine Sodium Inj 100 Mcg/5 Ml Vial IV PUSH 62.5 mcg DAILY@0630 [facility] Administration Losartan Potassium 25 mg 11/01/20 09:00 11/02/20 08:18 Losartan Potassium 25 Mg Tablet PO 25 mg DAILY [facility] Administration Morphine Sulfate 4 mg 11/02/20 10:09 Morphine Sulfate (*Crx) 4 Mg/Ml Inj IV PUSH Q2HR PRN Pain Nitroglycerin 0.4 mg 11/01/20 04:52 Nitroglycerin Sl 0.4 Mg Tablet SUBLINGUAL Q5MIN PRN Chest Pain Ondansetron HCl 4 mg 11/01/20 03:32 11/03/20 06:19 Ondansetron Inj 4 Mg/2 Ml Vial IV PUSH 4 mg Q4H PRN Administration Nausea Pantoprazole Sodium 40 mg 11/03/20 09:00 11/04/20 09:53 Pantoprazole Sodium Iv 40 Mg Vial IV PUSH 40 mg QAM [facility] Administration Tamsulosin HCl 0.4 mg 11/01/20 09:00 11/02/20 08:18 Tamsulosin Hcl 0.4 Mg Capsule PO 0.4 mg DAILY [facility] Administration Ticagrelor 90 mg 11/01/20 09:00 11/02/20 08:17 Ticagrelor 90 Mg Tablet PO 90 mg Q12HR MURALI Administration Tiotropium [place] 1 cap 11/02/20 09:00 11/04/20 08:01 Tiotropium [place] 18 Mcg Cap Disk
[2020-11-04 14:00] VITALS: BP 104/63; PULSE 80; RESP 16; TEMP 36.5; O2SAT 89
[2020-11-04] MEDS: levoFLOXacin 500 MG/D5W 100 ML 500 MG/100 ML BAG 100 MG IVPB (15:20)
[2020-11-04 16:37] LABS: Glucose Point of Care 173 mg/dl (65-105)
--- NOTE | 2020-11-04 18:22 | PM.IMPN ---
Progress Note: A&P Assessment and Plan (1) Small bowel obstruction: Code(s): K56.609 - Unspecified intestinal obstruction, unspecified as to partial versus complete obstruction Status: Acute Assessment and Plan: Ressolving partial bowel obstruction, clamp NG. Start clear liquid diet. Encourage OOB, ambulation (2) Leukocytosis: Code(s): D72.829 - Elevated white blood cell count, unspecified Status: Acute Assessment and Plan: Likely reactive in the setting of acute ileus. Continue levaquin and flagyl. Stopped the vancomycin. (3) Abdominal pain: Code(s): R10.9 - Unspecified abdominal pain Status: Acute Assessment and Plan: 11/02/2020 three views abdominal Xray shows for possible ileus versus obstruction. Currently patient having bowel movements. Abdomen improving clinically. Continue NG tube suction. Follow up surgery recommendations.. (4) Infarction of spleen: Code(s): D73.5 - Infarction of spleen Status: Acute Assessment and Plan: Patient is hemodynamically stable with improvement of abdominal symptoms. Continue to monitor. (5) CAD (coronary artery disease): Qualifiers: Coronary Disease-Associated Artery/Lesion type: unspecified vessel or lesion type [place] vs. transplanted heart: [place] heart Associated angina: with stable angina Qualified Code(s): I25.118 - Atherosclerotic heart disease of [place] coronary artery with other forms of angina pectoris Code(s): I25.10 - Atherosclerotic heart disease of [place] coronary artery without angina pectoris Status: Acute Assessment and Plan: Currently asymptomatic. Continue home ticagrelor. (6) Presence of stent in coronary artery in patient with coronary artery disease: Code(s): I25.10 - Atherosclerotic heart disease of [place] coronary artery without angina pectoris; Z95.5 - Presence of coronary angioplasty implant and graft Status: Acute Assessment and Plan: Resume home medications. (7) PVD (peripheral vascular disease) with claudication: Code(s): I73.9 - Peripheral vascular disease, unspecified Status: Acute Assessment and Plan: s/p post bilateral femoral bypass. (8) Former smoker: Code(s): Z87.891 - Personal history of nicotine dependence Status: Acute Assessment and Plan: Nicotine patch as needed. (9) COPD mixed type: Code(s): J44.9 - Chronic obstructive pulmonary disease, unspecified Status: Acute Assessment and Plan: Currently asymptomatic. Saturates well on oxygen 2 liters.. Continue home medications. (10) NICOLE on CPAP: Code(s): G47.33 - Obstructive sleep apnea (adult) (pediatric); Z99.89 - Dependence on other enabling machines and devices Status: Acute Assessment and Plan: Continue CPAP per home parameters. (11) Type 2 diabetes mellitus: Qualifiers: Diabetes mellitus care home insulin use: without terminal gauger supervisor use Diabetes mellitus complication status: with other specified complication Qualified Code(s): E11.69 - Type 2 diabetes mellitus with other specified complication Code(s): E11.9 - Type 2 diabetes mellitus without complications Status: Acute Assessment and Plan: Patient is NPO. Currently on insulin sliding scale as needed. Monitor accu-checks AC and HS. Control with oral agents. Continue to hold metformin and pioglitazone. Accuchecks in the 126-173 range. No episode of hypoglycemia. (12) GERD with esophagitis: Code(s): K21.0 - Gastro-esophageal reflux disease with esophagitis Status: Acute Assessment and Plan: Continue PPI Additional Plan 11/02/2020 three views of the abdomen shows ileus versus obstruction. Will consult surgery and put NG tube. WBC count is slightly high. Will add vancomycin to Levaquin and Flagyl. Monitor electrolytes and CBC in the morning and repeat three views of the abdomen the morning. Subjective
[2020-11-04 21:51] VITALS: BP 123/67; PULSE 70; RESP 18; TEMP 37; O2SAT 92
[2020-11-04 23:02] LABS: Glucose Point of Care 133 mg/dl (65-105)
[2020-11-05] VITALS (8 sets, daily range): BP systolic 108–133; BP diastolic 66–87; PULSE 68–115; RESP 16–18; TEMP 36.3–36.6; O2SAT 91–95
[2020-11-05] MEDS: metroNIDAZOLE 500 MG/ISO 100ML 500 MG/100 ML BAG 100 MG IVPB ×4 (03:28→21:49)
[2020-11-05] MEDS: LEVOTHYROXINE SODIUM INJ 100 MCG/5 ML VIAL 62.5 MCG IV PUSH (06:40)
[2020-11-05 06:52] LABS: Glucose Point of Care 139 mg/dl (65-105)
[2020-11-05] MEDS: HEPARIN SODIUM 5,000 UNITS/ML VIAL 5000 UNITS SUB-Q ×2 (09:26→21:54)
[2020-11-05] MEDS: PANTOPRAZOLE SODIUM IV 40 MG VIAL IV PUSH (09:27)
--- NOTE | 2020-11-05 10:18 | PM.PNGS ---
Progress Note: A&P Assessment and Plan (1) Small bowel obstruction: Code(s): K56.609 - Unspecified intestinal obstruction, unspecified as to partial versus complete obstruction Status: Acute Assessment and Plan: Resolving, continues to clinically improve. Tolerating clears. ADAT today. Encouraged ambulating in halls. Okay to discharge patient from a surgical standpoint once tolerating a regular diet. F/u only PRN. 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 (3) Leukocytosis: Code(s): D72.829 - Elevated white blood cell count, unspecified Status: Acute Assessment and Plan: Unclear etiology. Could be related to stress response. WBC trending down and on broad-spectrum IV antibiotics per Hospitalist. No labs yesterday or this morning yet - I ordered CBC/BMP to recheck prior to discharge. Additional Plan I have discussed the plan of care with Dr. Yañez. Subjective Subjective Date/Time Seen: 11/05/20 10:18 Patient reports: feels better, pain is less, tolerating liquids well, flatus, bowel movement (overnight x 1, multiple yesterday.) and afebrile Interval history: Patient seen this morning sitting in the chair. He reports feeling about the same as yesterday, and feeling tired. He did not sleep well overnight due to being in the hospital. He still reports having some abdominal soreness in the right side of his abdomen, but not any pain. No nausea, vomiting, or bloating. +flatus/BM. No other complaints or acute issues overnight. No labs were drawn yesterday or ordered today. Review of Systems Review of Systems: All systems reviewed & are unremarkable except as noted in HPI and below Exam Const: General: comfortable and no acute distress Nutritional Appearance: obese GI: Inspection: other (mildly distended) GI Palp: Yes Soft to palpation, Yes Tenderness to palpation present (GI) (slight tenderness in the right abd, same as yesterday), No Guarding due to palpation present (GI) and No Rebound tenderness present Auscultation: normal bowel sounds Neuro: General: moves all extremities and no focal motor deficits Extrem: General: no clubbing, cyanosis or edema Psych: Mental Status: mental status grossly normal Insight: Good insight present (Psych) Judgement: Good judgement present (Psych) Objective Data Vital Signs Vital Signs: Vital Signs - 24 hr 11/04/20 14:00 11/04/20 21:51 11/05/20 00:12 Temperature 97.7 F 98.6 F Pulse Rate 80 70 71 Respiratory Rate 16 18 Blood Pressure 104/63 123/67 Pulse Oximetry 89 L 92 95 11/05/20 03:42 11/05/20 08:11 11/05/20 08:14 Temperature 98 F Pulse Rate 70 115 H Respiratory Rate 17 18 Blood Pressure 133/67 Pulse Oximetry 94 92 11/05/20 09:27 Temperature Pulse Rate Respiratory Rate 18 Blood Pressure Pulse Oximetry 94 Intake/Output Intake/Output: Intake & Output 11/02/20 11/03/20 11/04/20 11/05/20 23:59 23:59 23:59 23:59 Intake Total 3100 2750 2651 1220 Output Total 675 3250 290 Balance 2425 -500 2361 1220 Meds/Results Medications: Active Medications Generic Name Dose Route Start Last Admin Trade Name Freq PRN Reason Stop Dose Admin Aspirin 81 mg 11/01/20 09:00 11/02/20 08:18 Aspirin 81 Mg Enteric Tablet PO 81 mg DAILY MURALI Administration Carvedilol 6.25 mg 11/01/20 09:00 11/02/20 08:18 Carvedilol 6.25 Mg Tablet PO 6.25 mg Q12HR MURALI Administration Docusate Sodium 100 mg 11/01/20 12:30 11/02/20 08:18 Docusate Sodium 100 Mg Capsule PO 100 mg Q12HR MURALI Administration Heparin Sodium (Porcine) 5,000 units 11/01/20 21:00 11/05/20 09:26 Heparin Sodium 5,000 Units/Ml Vial SUB-Q 5,000 units Q12HR MURALI Administration Levofloxacin/Dextrose
[2020-11-05 10:40] LABS: Hematocrit 32.6 % (42.0-52.0); Hemoglobin 10.5 g/dL (14.0-18.0); Mean Corpuscular HGB Conc 32.2 g/dl (32-36); Mean Corpuscular Hemoglobin 29.3 pg (26-34); Mean Corpuscular Volume 91.1 fl (80-100); Mean Platelet Volume 9.6 fl (7.4-10.4); Platelet Count Result 292 k/mm3 (150-375); Red Blood Count 3.58 M/mm3 (4.6-6.20); Red Cell Distribution Width 15.5 % (11.5-14.5)
[2020-11-05 10:51] LABS: Anion Gap 9 mmol/L (8-16); Blood Urea Nitrogen 14 mg/dL (9-20); Calcium 7.9 mg/dL (8.4-10.2); Carbon Dioxide 22 mmol/L (22-30); Chloride 105 mmol/L (98-107); Estimated CRCL calculation 54 ml/min; Estimated Glomerular Filt Rate > 60; Glucose 206 mg/dL (65-110); Potassium 3.2 mmol/L (3.4-5.0); Sodium 136 mmol/L (137-145)
[2020-11-05 11:42] LABS: Glucose Point of Care 168 mg/dl (65-105)
[2020-11-05] MEDS: levoFLOXacin 500 MG/D5W 100 ML 500 MG/100 ML BAG 100 MG IVPB (15:14)
[2020-11-05 16:35] LABS: Glucose Point of Care 169 mg/dl (65-105)
--- NOTE | 2020-11-05 17:06 | PM.IMPN ---
Progress Note: A&P Assessment and Plan (1) Small bowel obstruction: Code(s): K56.609 - Unspecified intestinal obstruction, unspecified as to partial versus complete obstruction Status: Acute Assessment and Plan: Resolving partial bowel obstruction, clamp NG. Patient has been tolerating a clear liquid diet and diet will be advanced to a full liquid today.. Encourage OOB, ambulation. Resolving, continues to clinically improve. Patient will be discharged once he can tolerate a regular diet. (2) Leukocytosis: Code(s): D72.829 - Elevated white blood cell count, unspecified Status: Acute Assessment and Plan: Likely reactive in the setting of acute ileus. Continue levaquin and flagyl. Stopped the vancomycin. (3) Abdominal pain: Code(s): R10.9 - Unspecified abdominal pain Status: Acute Assessment and Plan: 11/02/2020 three views abdominal Xray shows for possible ileus versus obstruction. Currently patient having bowel movements. Abdomen improving clinically. NG tube out. surgery to follow up as needed. (4) Infarction of spleen: Code(s): D73.5 - Infarction of spleen Status: Acute Assessment and Plan: Patient is hemodynamically stable with improvement of abdominal symptoms. Continue to monitor. (5) CAD (coronary artery disease): Qualifiers: Coronary Disease-Associated Artery/Lesion type: unspecified vessel or lesion type [place] vs. transplanted heart: [place] heart Associated angina: with stable angina Qualified Code(s): I25.118 - Atherosclerotic heart disease of [place] coronary artery with other forms of angina pectoris Code(s): I25.10 - Atherosclerotic heart disease of [place] coronary artery without angina pectoris Status: Acute Assessment and Plan: Currently asymptomatic. Continue home ticagrelor. (6) Presence of stent in coronary artery in patient with coronary artery disease: Code(s): I25.10 - Atherosclerotic heart disease of [place] coronary artery without angina pectoris; Z95.5 - Presence of coronary angioplasty implant and graft Status: Acute Assessment and Plan: Resume home medications. (7) PVD (peripheral vascular disease) with claudication: Code(s): I73.9 - Peripheral vascular disease, unspecified Status: Acute Assessment and Plan: s/p post bilateral femoral bypass. (8) Former smoker: Code(s): Z87.891 - Personal history of nicotine dependence Status: Acute Assessment and Plan: Nicotine patch as needed. (9) COPD mixed type: Code(s): J44.9 - Chronic obstructive pulmonary disease, unspecified Status: Acute Assessment and Plan: Currently asymptomatic. Saturates well on room air. Continue home medications. (10) NICOLE on CPAP: Code(s): G47.33 - Obstructive sleep apnea (adult) (pediatric); Z99.89 - Dependence on other enabling machines and devices Status: Acute Assessment and Plan: Continue CPAP per home parameters. (11) Type 2 diabetes mellitus: Qualifiers: Diabetes mellitus fpc insulin use: without terminal system operator use Diabetes mellitus complication status: with other specified complication Qualified Code(s): E11.69 - Type 2 diabetes mellitus with other specified complication Code(s): E11.9 - Type 2 diabetes mellitus without complications Status: Acute Assessment and Plan: Patient on diabetic diet. Currently on insulin sliding scale as needed. Monitor accu-checks AC and HS. Control with oral agents. Continue to hold metformin and pioglitazone. Accuchecks in the 133-173 range. No episode of hypoglycemia. (12) GERD with esophagitis: Code(s): K21.0 - Gastro-esophageal reflux disease with esophagitis Status: Acute Assessment and Plan: Continue PPI Additional Plan 11/02/2020 three views of the abdomen shows ileus versus obstruction. Will consult surgery and put NG tube. WBC count is im
[2020-11-05 23:22] LABS: Glucose Point of Care 170 mg/dl (65-105)
[2020-11-06 02:50] VITALS: PULSE 84; O2SAT 94
[2020-11-06] MEDS: metroNIDAZOLE 500 MG/ISO 100ML 500 MG/100 ML BAG 100 MG IVPB ×2 (03:11→08:12)
[2020-11-06 05:35] VITALS: BP 127/69; PULSE 67; RESP 18; TEMP 36.6; O2SAT 98
[2020-11-06] MEDS: LEVOTHYROXINE SODIUM 125 MCG TABLET PO (06:43)
[2020-11-06 07:27] LABS: Glucose Point of Care 164 mg/dl (65-105)
--- NOTE | 2020-11-06 07:39 | PM.PNGS ---
Progress Note: A&P Assessment and Plan (1) Small bowel obstruction: Code(s): K56.609 - Unspecified intestinal obstruction, unspecified as to partial versus complete obstruction Status: Acute Assessment and Plan: resolving, plan to ADAT, encourage OOB/ambulation, ok to dc from surgical standpoint Subjective Subjective Date/Time Seen: 11/06/20 07:39 feels good, +bowel fxn, tre full liquids Review of Systems Review of Systems: All systems reviewed & are unremarkable except as noted in HPI and below Exam Const: General: cooperative, comfortable and no acute distress Orientation/consciousness: patient oriented x3 Resp: Effort & Inspection: normal respiratory effort Auscultation: clear to auscultation bilaterally Cardio: Rate: regular rate Rhythm: regular rhythm GI: Inspection: normal to inspection and non-distended GI Palp: Yes Soft to palpation, No Tenderness to palpation present (GI) and No Guarding due to palpation present (GI) Objective Data Vital Signs Vital Signs: Vital Signs - 24 hr 11/05/20 08:11 11/05/20 08:14 11/05/20 09:27 Temperature Pulse Rate 115 H Respiratory Rate 18 18 Blood Pressure Pulse Oximetry 92 94 11/05/20 12:00 11/05/20 22:00 11/05/20 22:15 Temperature 36.3 C L 36.4 C L Pulse Rate 80 68 91 Respiratory Rate 16 16 Blood Pressure 108/66 121/87 Pulse Oximetry 92 91 95 11/06/20 02:50 11/06/20 05:35 Temperature 36.6 C Pulse Rate 84 67 Respiratory Rate 18 Blood Pressure 127/69 Pulse Oximetry 94 98 Intake/Output Intake/Output: Intake & Output 11/03/20 11/04/20 11/05/20 11/06/20 23:59 23:59 23:59 23:59 Intake Total 2750 2651 3160 400 Output Total 3250 290 1300 Balance -500 2361 1860 400 Meds/Results Medications: Active Medications Generic Name Dose Route Start Last Admin Trade Name Freq PRN Reason Stop Dose Admin Aspirin 81 mg 11/01/20 09:00 11/02/20 08:18 Aspirin 81 Mg Enteric Tablet PO 81 mg DAILY MURALI Administration Carvedilol 6.25 mg 11/01/20 09:00 11/02/20 08:18 Carvedilol 6.25 Mg Tablet PO 6.25 mg Q12HR [facility] Administration Docusate Sodium 100 mg 11/01/20 12:30 11/02/20 08:18 Docusate Sodium 100 Mg Capsule PO 100 mg Q12HR [facility] Administration Heparin Sodium (Porcine) 5,000 units 11/01/20 21:00 11/05/20 21:54 Heparin Sodium 5,000 Units/Ml Vial SUB-Q 5,000 units Q12HR [facility] Administration Levofloxacin/Dextrose 500 mg in 100 mls @ 100 mls/hr 11/01/20 15:00 11/05/20 16:07 Levaquin 500 Mg/D5w 100 Ml IVPB Infused Q24H MURALI Infusion Metronidazole 500 mg in 100 mls @ 100 mls/hr 11/01/20 15:00 11/06/20 04:11 Flagyl 500 Mg/Iso Soln 100 Ml IVPB Infused Q6H [facility] Infusion Insulin Aspart 4 units 11/01/20 08:00 11/02/20 08:15 Insulin Aspart (*Bkc) 100 Units/Ml 0.05 units/kg (4 units) 4 units SUB-Q Administration TIDWM [facility] Levothyroxine Sodium 125 mcg 11/06/20 06:30 11/06/20 06:43 Levothyroxine Sodium 125 Mcg Tablet PO 125 mcg DAILY@0630 [facility] Administration Losartan Potassium 25 mg 11/01/20 09:00 11/02/20 08:18 Losartan Potassium 25 Mg Tablet PO 25 mg DAILY [facility] Administration Morphine Sulfate 4 mg 11/02/20 10:09 Morphine Sulfate (*Crx) 4 Mg/Ml Inj IV PUSH Q2HR PRN Pain Nitroglycerin 0.4 mg 11/01/20 04:52 Nitroglycerin Sl 0.4 Mg Tablet SUBLINGUAL Q5MIN PRN Chest Pain Ondansetron HCl 4 mg 11/01/20 03:32 11/03/20 06:19 Ondansetron Inj 4 Mg/2 Ml Vial IV PUSH 4 mg Q4H PRN Administration Nausea Pantoprazole Sodium 40 mg 11/03/20 09:00 11/05/20 09:27 Pantoprazole Sodium Iv 40 Mg Vial IV PUSH 40 mg QAM [facility] Administration Tamsulosin HCl 0.4 mg 11/01/20 09:00 11/02/20 08:18 Tamsulosin Hcl 0.4 Mg Capsule PO 0.4 mg DAILY [facility] Administration Ticagrelor 90 mg 11/01/20 09:00 11/02/20 08:17 Ticagrelor 90 Mg Tablet PO 90 mg Q12HR MURALI Administration Tiotropium [place]
[2020-11-06] MEDS: PANTOPRAZOLE SODIUM IV 40 MG VIAL IV PUSH (08:13)
[2020-11-06] MEDS: HEPARIN SODIUM 5,000 UNITS/ML VIAL 5000 UNITS SUB-Q ×2 (08:13→20:10)
[2020-11-06 08:58] LABS: Basophils Percent Auto 0.2 % (0.2-1.2); Eosinophils Absolute Auto 0.2 K/mm3 (0-0.3); Eosinophils Percent Auto 1.2 % (0-4.4); Hematocrit 35.4 % (42.0-52.0); Hemoglobin 11.8 g/dL (14.0-18.0); Immature Granulocyte Absolute 0.58 K/mm3 (0.00-0.031); Immature Granulocyte Percent A 4.6 % (0-0.5); Lymphocytes Absolute Auto 1.11 K/mm3 (0.9-3.2); Lymphocytes Percent Auto 8.8 % (18.3-44.2); Mean Corpuscular HGB Conc 33.3 g/dl (32-36); Mean Corpuscular Hemoglobin 29.1 pg (26-34); Mean Corpuscular Volume 87.4 fl (80-100); Mean Platelet Volume 9.6 fl (7.4-10.4); Monocytes Absolute Auto 1.3 K/mm3 (0.1-0.6); Monocytes Percent Auto 10.3 % (2.6-8.5); Neutrophils Absolute Auto 9.4 K/mm3 (1.3-6.7); Neutrophils Percent Auto 74.9 % (45.5-73.1); Platelet Count Result 355 k/mm3 (150-375); Red Blood Count 4.05 M/mm3 (4.6-6.20); Red Cell Distribution Width 15.4 % (11.5-14.5); White Blood Count 12.6 K/mm3 (4.5-10.0)
[2020-11-06 09:24] LABS: Anion Gap 15 mmol/L (8-16); Blood Urea Nitrogen 9 mg/dL (9-20); Calcium 8.5 mg/dL (8.4-10.2); Carbon Dioxide 20 mmol/L (22-30); Chloride 104 mmol/L (98-107); Estimated CRCL calculation 54 ml/min; Estimated Glomerular Filt Rate > 60; Glucose 172 mg/dL (65-110); Potassium 3.4 mmol/L (3.4-5.0); Sodium 139 mmol/L (137-145)
[2020-11-06 11:45] LABS: Glucose Point of Care 168 mg/dl (65-105)
[2020-11-06 12:00] VITALS: BP 140/79; PULSE 66; RESP 18; TEMP 36.2; O2SAT 98
--- NOTE | 2020-11-06 15:18 | PM.IMPN ---
Progress Note: A&P Assessment and Plan (1) Small bowel obstruction: Code(s): K56.609 - Unspecified intestinal obstruction, unspecified as to partial versus complete obstruction Status: Acute Assessment and Plan: Resolved partial bowel obstruction. Diarrhea likely represents liquefied stool backup, as the patient's abdominal exam is benign, and he continues to clinically improve. Patient will be discharged once he can tolerate a regular diet and have a formed stool.. (2) Leukocytosis: Code(s): D72.829 - Elevated white blood cell count, unspecified Status: Acute Assessment and Plan: Likely reactive in the setting of acute ileus. Stop antibiotics (3) Abdominal pain: Code(s): R10.9 - Unspecified abdominal pain Status: Acute Assessment and Plan: 11/02/2020 three views abdominal Xray shows for possible ileus versus obstruction. Currently patient having bowel movements. Abdomen improving clinically. (4) Infarction of spleen: Code(s): D73.5 - Infarction of spleen Status: Acute Assessment and Plan: Patient is hemodynamically stable with improvement of abdominal symptoms. Continue to monitor. (5) CAD (coronary artery disease): Qualifiers: Coronary Disease-Associated Artery/Lesion type: unspecified vessel or lesion type [place] vs. transplanted heart: [place] heart Associated angina: with stable angina Qualified Code(s): I25.118 - Atherosclerotic heart disease of [place] coronary artery with other forms of angina pectoris Code(s): I25.10 - Atherosclerotic heart disease of [place] coronary artery without angina pectoris Status: Acute Assessment and Plan: Currently asymptomatic. Continue home ticagrelor. (6) Presence of stent in coronary artery in patient with coronary artery disease: Code(s): I25.10 - Atherosclerotic heart disease of [place] coronary artery without angina pectoris; Z95.5 - Presence of coronary angioplasty implant and graft Status: Acute Assessment and Plan: Continue home medications. (7) PVD (peripheral vascular disease) with claudication: Code(s): I73.9 - Peripheral vascular disease, unspecified Status: Acute Assessment and Plan: s/p post bilateral femoral bypass. (8) Former smoker: Code(s): Z87.891 - Personal history of nicotine dependence Status: Acute Assessment and Plan: Nicotine patch as needed. (9) COPD mixed type: Code(s): J44.9 - Chronic obstructive pulmonary disease, unspecified Status: Acute Assessment and Plan: Currently asymptomatic. Saturates well on room air. Continue home medications. (10) NICOLE on CPAP: Code(s): G47.33 - Obstructive sleep apnea (adult) (pediatric); Z99.89 - Dependence on other enabling machines and devices Status: Acute Assessment and Plan: Continue CPAP per home parameters. (11) Type 2 diabetes mellitus: Qualifiers: Diabetes mellitus [place] insulin use: without meterman use Diabetes mellitus complication status: with other specified complication Qualified Code(s): E11.69 - Type 2 diabetes mellitus with other specified complication Code(s): E11.9 - Type 2 diabetes mellitus without complications Status: Acute Assessment and Plan: Patient on diabetic diet. Currently on insulin sliding scale as needed. Monitor accu-checks AC and HS. Control with oral agents. Continue to hold metformin and pioglitazone. Accuchecks in the 160s-170s range. No episode of hypoglycemia. (12) GERD with esophagitis: Code(s): K21.0 - Gastro-esophageal reflux disease with esophagitis Status: Acute Assessment and Plan: Continue PPI Additional Plan 11/02/2020 three views of the abdomen shows ileus versus obstruction. Will consult surgery and put NG tube. WBC count is improving down from 13 to 12. Stopped IV antibiotics.. Subjective Date/time seen: 11/06/20 11:00
[2020-11-06 16:42] LABS: Glucose Point of Care 162 mg/dl (65-105)
[2020-11-06 20:27] VITALS: BP 122/69; PULSE 71; RESP 20; TEMP 36.2; O2SAT 100
[2020-11-06 23:00] VITALS: PULSE 68; O2SAT 94
[2020-11-07 04:22] VITALS: PULSE 71; O2SAT 93
[2020-11-07 04:43] VITALS: BP 118/54; PULSE 75; RESP 20; TEMP 36; O2SAT 93
--- NOTE | 2020-11-07 04:46 | PM.PNGS ---
Progress Note: A&P Assessment and Plan (1) Small bowel obstruction: Code(s): K56.609 - Unspecified intestinal obstruction, unspecified as to partial versus complete obstruction Status: Acute Assessment and Plan: resolved, exam benign, +BMs, tre diet, no acute surgical issues, will sign off, call c ?s, issues Subjective Subjective Date/Time Seen: 11/07/20 04:46 feels good, tre diet, loose BMs, no abd pain, no N/V Review of Systems Review of Systems: All systems reviewed & are unremarkable except as noted in HPI and below Exam Const: General: cooperative, comfortable and no acute distress Orientation/consciousness: patient oriented x3 Resp: Effort & Inspection: normal respiratory effort Auscultation: clear to auscultation bilaterally Cardio: Rate: regular rate Rhythm: regular rhythm GI: Inspection: normal to inspection and non-distended GI Palp: Yes Soft to palpation, No Tenderness to palpation present (GI) and No Guarding due to palpation present (GI) Objective Data Vital Signs Vital Signs: Vital Signs - 24 hr 11/06/20 05:35 11/06/20 12:00 11/06/20 20:27 Temperature 36.6 C 36.2 C L 36.2 C L Pulse Rate 67 66 71 Respiratory Rate 18 18 20 Blood Pressure 127/69 140/79 122/69 Pulse Oximetry 98 98 100 11/06/20 23:00 11/07/20 04:22 11/07/20 04:43 Temperature 36.0 C L Pulse Rate 68 71 75 Respiratory Rate 20 Blood Pressure 118/54 L Pulse Oximetry 94 93 93 Intake/Output Intake/Output: Intake & Output 11/04/20 11/05/20 11/06/20 11/07/20 23:59 23:59 23:59 23:59 Intake Total 2651 3160 980 240 Output Total 290 1300 Balance 2361 1860 980 240 Meds/Results Medications: Active Medications Generic Name Dose Route Start Last Admin Trade Name Janesq PRN Reason Stop Dose Admin Aspirin 81 mg 11/01/20 09:00 11/02/20 08:18 Aspirin 81 Mg Enteric Tablet PO 81 mg DAILY MURALI Administration Carvedilol 6.25 mg 11/01/20 09:00 11/02/20 08:18 Carvedilol 6.25 Mg Tablet PO 6.25 mg Q12HR MURALI Administration Docusate Sodium 100 mg 11/01/20 12:30 11/02/20 08:18 Docusate Sodium 100 Mg Capsule PO 100 mg Q12HR MURALI Administration Heparin Sodium (Porcine) 5,000 units 11/01/20 21:00 11/06/20 20:10 Heparin Sodium 5,000 Units/Ml Vial SUB-Q 5,000 units Q12HR MURALI Administration Insulin Aspart 4 units 11/01/20 08:00 11/02/20 08:15 Insulin Aspart (*Bkc) 100 Units/Ml 0.05 units/kg (4 units) 4 units SUB-Q Administration TIDWM [facility] Levothyroxine Sodium 125 mcg 11/06/20 06:30 11/06/20 06:43 Levothyroxine Sodium 125 Mcg Tablet PO 125 mcg DAILY@0630 [facility] Administration Losartan Potassium 25 mg 11/01/20 09:00 11/02/20 08:18 Losartan Potassium 25 Mg Tablet PO 25 mg DAILY MURALI Administration Morphine Sulfate 4 mg 11/02/20 10:09 Morphine Sulfate (*Crx) 4 Mg/Ml Inj IV PUSH Q2HR PRN Pain Nitroglycerin 0.4 mg 11/01/20 04:52 Nitroglycerin Sl 0.4 Mg Tablet SUBLINGUAL Q5MIN PRN Chest Pain Ondansetron HCl 4 mg 11/01/20 03:32 11/03/20 06:19 Ondansetron Inj 4 Mg/2 Ml Vial IV PUSH 4 mg Q4H PRN Administration Nausea Tamsulosin HCl 0.4 mg 11/01/20 09:00 11/02/20 08:18 Tamsulosin Hcl 0.4 Mg Capsule PO 0.4 mg DAILY [facility] Administration Ticagrelor 90 mg 11/01/20 09:00 11/02/20 08:17 Ticagrelor 90 Mg Tablet PO 90 mg Q12HR [facility] Administration Tiotropium [place] 1 cap 11/02/20 09:00 11/06/20 08:50 Tiotropium [place] 18 Mcg Cap Diskus INHALATION 1 cap QAM [facility] Administration Radiology Results: ITS Impressions Abdomen/Pelvis CT 11/01/20 13:34 IMPRESSION: 1. Geographic areas of low-attenuation in the spleen, likely reflecting infarction. Chest CT 11/02/20 12:30 IMPRESSION: 1. Dependent airspace opacities of the lungs which could reflect atelectasis and/or aspiration pneumonia. 2. Healing right seventh through 10th rib fractures and possible nondisplaced 11th
[2020-11-07] MEDS: LEVOTHYROXINE SODIUM 125 MCG TABLET PO (05:42)
[2020-11-07] MEDS: TAMSULOSIN HCL 0.4 MG CAPSULE PO (05:42)
[2020-11-07 07:00] LABS: Glucose Point of Care 185 mg/dl (65-105)
[2020-11-07 08:02] VITALS: O2SAT 93
[2020-11-07] MEDS: HEPARIN SODIUM 5,000 UNITS/ML VIAL 5000 UNITS SUB-Q (08:37)
[2020-11-07 08:53] LABS: Hematocrit 35.8 % (42.0-52.0); Hemoglobin 11.6 g/dL (14.0-18.0); Mean Corpuscular HGB Conc 32.4 g/dl (32-36); Mean Corpuscular Hemoglobin 28.4 pg (26-34); Mean Corpuscular Volume 87.5 fl (80-100); Mean Platelet Volume 9.8 fl (7.4-10.4); Platelet Count Result 382 k/mm3 (150-375); Red Blood Count 4.09 M/mm3 (4.6-6.20); Red Cell Distribution Width 15.3 % (11.5-14.5)
[2020-11-07 09:06] LABS: Anion Gap 14 mmol/L (8-16); Blood Urea Nitrogen 9 mg/dL (9-20); Calcium 8.7 mg/dL (8.4-10.2); Carbon Dioxide 21 mmol/L (22-30); Chloride 102 mmol/L (98-107); Estimated CRCL calculation 60 ml/min; Estimated Glomerular Filt Rate > 60; Glucose 232 mg/dL (65-110); Potassium 3.6 mmol/L (3.4-5.0); Sodium 137 mmol/L (137-145)
[2020-11-07 10:31] LABS: Atypical Lymphocytes Present; Eosinophils Absolute Manual 0.13 K/mm3 (0.02-0.5); Eosinophils Percent Manual 1 % (0-4); Lymphocytes Absolute Manual 1.82 K/mm3 (1.1-4.5); Monocytes Absolute Manual 1.17 K/mm3 (0.1-0.90); Monocytes Percent Manual 9 % (3-9); Neutrophils Percent Manual 76 % (46-73); Platelet Estimate Adequate (Adequate); Total Cells Counted 100
[2020-11-07 10:32] LABS: Hypochromasia 1+ (NORMAL)
[2020-11-07 11:50] LABS: Glucose Point of Care 197 mg/dl (65-105)
--- NOTE | 2020-11-07 15:57 | PM.DS ---
DS: Admitting Diagnosis Discharge Date 11/07/2020 Admitting Diagnosis Acute abdominal pain Splenic infarct DS: Discharge Diagnosis Discharge Diagnosis (1) Small bowel obstruction: Code(s): K56.609 - Unspecified intestinal obstruction, unspecified as to partial versus complete obstruction Status: Acute Assessment and Plan: Resolved partial bowel obstruction. Diarrhea likely represents liquefied stool backup, as the patient's abdominal exam is benign, and he continues to clinically improve. Patient will be discharged once he can tolerate a regular diet and have a formed stool.. (2) Abdominal pain: Code(s): R10.9 - Unspecified abdominal pain Status: Acute Assessment and Plan: 11/02/2020 three views abdominal Xray shows for possible ileus versus obstruction. Currently patient having bowel movements. Abdomen improving clinically. (3) Hematuria, gross: Code(s): R31.0 - Gross hematuria Status: Acute (4) Infarction of spleen: Code(s): D73.5 - Infarction of spleen Status: Acute Assessment and Plan: Patient is hemodynamically stable with improvement of abdominal symptoms. Continue to monitor. (5) Leukocytosis: Code(s): D72.829 - Elevated white blood cell count, unspecified Status: Acute Assessment and Plan: Likely reactive in the setting of acute ileus. Stop antibiotics (6) CAD (coronary artery disease): Qualifiers: Coronary Disease-Associated Artery/Lesion type: unspecified vessel or lesion type [place] vs. transplanted heart: [place] heart Associated angina: with stable angina Qualified Code(s): I25.118 - Atherosclerotic heart disease of [place] coronary artery with other forms of angina pectoris Code(s): I25.10 - Atherosclerotic heart disease of [place] coronary artery without angina pectoris Status: Acute Assessment and Plan: Currently asymptomatic. Continue home ticagrelor. (7) Presence of stent in coronary artery in patient with coronary artery disease: Code(s): I25.10 - Atherosclerotic heart disease of [place] coronary artery without angina pectoris; Z95.5 - Presence of coronary angioplasty implant and graft Status: Acute Assessment and Plan: Continue home medications. (8) PVD (peripheral vascular disease) with claudication: Code(s): I73.9 - Peripheral vascular disease, unspecified Status: Acute Assessment and Plan: s/p post bilateral femoral bypass. (9) Former smoker: Code(s): Z87.891 - Personal history of nicotine dependence Status: Acute Assessment and Plan: Nicotine patch as needed. (10) COPD mixed type: Code(s): J44.9 - Chronic obstructive pulmonary disease, unspecified Status: Acute Assessment and Plan: Currently asymptomatic. Saturates well on room air. Continue home medications. (11) NICOLE on CPAP: Code(s): G47.33 - Obstructive sleep apnea (adult) (pediatric); Z99.89 - Dependence on other enabling machines and devices Status: Acute Assessment and Plan: Continue CPAP per home parameters. 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 Currently on insulin sliding scale as needed. Monitor accu-checks AC and HS. Control with oral agents. Continue to hold metformin and pioglitazone. Accuchecks in the 160s-170s range. No episode of hypoglycemia. (13) GERD with esophagitis: Code(s): K21.0 - Gastro-esophageal reflux disease with esophagitis Status: Acute Assessment and Plan: Continue PPI DS: Summary Hospital Course G[facility]
--- NOTE | 2020-11-07 16:46 | WPDURCON ---
Assessment and Plan Assessment and plan (1) Hematuria, gross: Code(s): R31.0 - Gross hematuria Status: Acute Assessment and Plan: I irrigated his barnhart with NS 0.9% 250cc and removed several small blood clots, it is now draining to gravity and clear. I advised him to hold his blood thinners until Tuesday, we will do a voiding trial next week in the office and add Finasteride to his Tamsulosin. I suspect this is secondary to his ileus, intermittent doses of Tamsulosin and infrequent urination prior to cath placement. He denied frequency, urgency, straining, hesitancy or difficulty urinating at home prior to this hospitalization. Urology Consult Note HPI Date Seen: 11/10/20 Requesting Physician: Shahriar Bullard MD Primary Care Provider: Caitlin Ndiaye MD Consult Narrative Narrative: Mike Triplett is a 80 year old male who came in the ED with abdominal pain initially and was diagnosed with an ileus. He has been treated for several days, but last night was noted to have urinary retention and had a barnhart placed this morning which drained 1500cc from his bladder. He then later developed gross hematuria. He does take anticoagulants normally and Tamsulosin for many years d/t known BPH. He is a patient of Dr. Lucero's but hasn't been seen for quite some time. He states he has missed a few doses of Tamsulosin recently, but didn't c/o any difficulty with urination, frequency, urgency or dysuria. His WBC is 13, creatinine 0.[address] 11/02/20 was urologically normal. Review of Systems Cardiovascular: Cardiovascular: Denies chest pain Respiratory: Respiratory: Reports no additional respiratory complaints Gastrointestinal: Gastrointestinal: Denies abdominal pain, Denies nausea and Denies vomiting Genitourinary: Genitourinary: Reports hematuria, Denies dysuria and Reports other (barnhart placed) [facility] Past Medical History Medical History Abscess of skin and subcutaneous tissue BPH loc w urin obs/LUTS CAD (coronary artery disease) COPD mixed type Epithelial inclusion cyst Former smoker GERD with esophagitis History of alcoholism Hypertension 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 thyroid function test nursing home (current) use of 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/antiplatelets Lumbar spinal stenosis NICOLE on CPAP Osteoarthritis Presence of stent in coronary artery in patient with coronary artery disease PUD (peptic ulcer disease) PVD (peripheral vascular disease) with claudication Stable angina Type 2 diabetes mellitus Surgical History Surgical History H/O abdominal aortic aneurysm repair History of colon resection History of heart artery stent History of hernia surgery History of incision and drainage 03/14/20 back abscess History of total right hip arthroplasty S/P right rotator cuff repair Family History Family History Mother Family history of migraine headaches Hypertension Colon cancer Grandparent Acute myocardial infarction Hypertension Sibling Hypertension Brain aneurysm Father Myocardial infarction Social History Social History Smoking packs per day: 2 Smoking cigarettes per day: 40.0 Years smoked: 40 Smoking pack-years: 80.00 Smoking status: Former smoker Second hand tobacco smoke exposure: No Smoking end date: 02/14/97 Alcohol intake: never Drinks per week: 0 Substance use: never Substance use type: does not use Gender identity (if verbalized by the patient): Male Spiritual care concerns: No Meds Home Medications and Allergies Home Medications Medication Instructions Recorded Confirmed Type nitroglycerin 0.4 mg sublingual 0.4 mg SUBLINGUAL Q5M PRN 12/27/18 11/01/20 History tablet carvedilol 6.25 mg tablet 6.25 mg PO Q12H #90 tablet 03/03/20 0
--- NOTE | 2020-11-07 16:56 | PC.NURSE ---
Pt OK to discharge per Urology, Patient to hold aspirin and Brilinta until Tuesday.
== END 2020-11-07 17:15 | disposition home or self-care (01) | DRG 390 ==
LOC: ANHED 11-01 03:37 → ANH2MED 11-01 04:34
PROVIDERS: Internal Medicine; Nurse Practitioner Family; Admitting Provider Internal Medicine; Emergency Provider Emergency Medicine; PCP Family Medicine; Visit Provider Internal Medicine
DX: K56.600 Partial intestinal obstruction, unspecified as to cause (principal); D73.5 Infarction of spleen; D72.829 Elevated white blood cell count, unspecified; I25.118 Atherosclerotic heart disease of native coronary artery with other forms of angina pectoris; J43.9 Emphysema, unspecified; E11.51 Type 2 diabetes mellitus with diabetic peripheral angiopathy without gangrene; G47.33 Obstructive sleep apnea (adult) (pediatric); K21.00 Gastro-esophageal reflux disease with esophagitis, without bleeding; I10 Essential (primary) hypertension; E03.9 Hypothyroidism, unspecified; N40.1 Benign prostatic hyperplasia with lower urinary tract symptoms; R33.8 Other retention of urine; R31.0 Gross hematuria; Z79.82 Long term (current) use of aspirin; Z79.899 Other long term (current) drug therapy; Z87.891 Personal history of nicotine dependence; Z95.5 Presence of coronary angioplasty implant and graft; Z95.828 Presence of other vascular implants and grafts; Z99.89 Dependence on other enabling machines and devices
CPT/HCPCS: 36415; 71250; 74019; 74177; 74250; 80048; 80053; 81001; 82565; 82948; 83605; 83690; 85025; 85027; 85610; 85730; 87040; 94640; 96361; 96365; 96366; 96367; 96372; 96375; 99285; A9270; C9113; G0378; J1644; J1815; J1956; J2270; J2405; J3370; J3480; J7030; Q9967

== ENCOUNTER → 2020-12-04 16:04 | Outpatient (CLI) | payer MEDICARE, SELFPAY ==
--- NOTE | ~2020-12-04 | XR_ITS ---
EXAMINATION: XR abdomen obstructive series DATE: 12/04/2020 16:40 INDICATION: Unspecified abdominal pain. Nausea, constipation, and diarrhea. TECHNIQUE: Upright and supine views of the abdomen on 3 radiographs were obtained. COMPARISON: CT abdomen and pelvis 11/01/2020, small bowel series 11/03/2020 FINDINGS: There are multiple dilated loops of small bowel. The colon is normal in caliber. There are surgical clips from ventral hernia repair. There is a stent graft in abdominal aorta and the common i liac arteries. There is a total right hip arthroplasty. No free intraperitoneal gas. There is a moder ate-sized hiatal hernia. IMPRESSION: 1. Dilated small bowel, consistent with adynamic ileus versus small bowel obstruction. 2. Moderate-sized hiatal hernia. Reviewed, dictated and finalized at location A. IMPRESSION: 1. Dilated small bowel, consistent with adynamic ileus versus small bowel obstr uction. 2. Moderate-sized hiatal hernia.
== END ==
PROVIDERS: Visit Provider Physician Assistant
DX: R10.9 Unspecified abdominal pain (principal); K44.9 Diaphragmatic hernia without obstruction or gangrene
CPT/HCPCS: 74019

== ENCOUNTER 2020-12-05 10:35 | Inpatient (IN) | payer MEDICARE, SELFPAY ==
--- NOTE | ~2020-12-05 | XR_ITS ---
XR abdomen NG/feed tube insert INDICATION: Evaluate NG tube position. TECHNIQUE: Limited KUB perform for evaluating NG tube . COMPARISON: 12/04/2020 FINDINGS: NG tube tip in the stomach. Visualized bowel gas pattern is unremarkable.There is a partia lly visualized stent in the abdominal aorta. IMPRESSION: 1: NG tube tip in the stomach. Reviewed, dictated and finalized at location B.
--- NOTE | ~2020-12-05 | XR_ITS ---
EXAMINATION: XR abdomen obstructive series DATE: 12/06/2020 08:18 INDICATION: Bowel obstruction TECHNIQUE: Upright and supine views of the abdomen were obtained. COMPARISON: CT from yesterday FINDINGS: The nasogastric tube is in the stomach. There are persistently dilated loops of small bowel which demonstrate interval improvement. No free intraperitoneal gas is identified. An aortobiiliac s tent graft is noted. There are changes of right total hip arthroplasty. Contrast from yesterday's CT examination opacifies the urinary bladder. There are changes of mesh ventral hernia repair. There is atelectasis of the visualized lung bases. IMPRESSION: 1. Persistent but improved small bowel dilatation. Reviewed, dictated and finalized at location A.
--- NOTE | ~2020-12-05 | XR_ITS ---
EXAMINATION: XR abdomen obstructive series DATE: 12/07/2020 08:22 INDICATION: Bowel obstruction TECHNIQUE: Upright and supine views of the abdomen were obtained. COMPARISON: 12/06/2020 FINDINGS: The tip of the nasogastric tube is in the stomach. The proximal side port is just at the ga stroesophageal junction. There is no free intraperitoneal gas. There appears to be a persistently dil ated loop of small bowel in the midabdomen. Gas and stool are seen in the colon. There are changes of right total hip arthroplasty. A bifurcated endoluminal aortic stent grafts is noted. There are iglesias es of mesh ventral hernia repair. IMPRESSION: 1. Persistently dilated loop of small bowel in the midabdomen. Reviewed, dictated and finalized at location A.
--- NOTE | ~2020-12-05 | XR_ITS ---
EXAMINATION: XR sm bowel follow through WS DATE: 12/08/2020 11:42 INDICATION: Small bowel obstruction. TECHNIQUE: Oral contrast was administered, and a time course of radiographs of the abdomen was obtain ed. Fluoroscopy of the small bowel was performed. Fluoroscopy exposure time was 0.3 minutes. The tota l number of images was 10. COMPARISON: CT abdomen and pelvis 12/05/2020 FINDINGS: There is a moderate-sized sliding hiatal hernia. There are mildly dilated loops of distal small bowel . Transit time from the stomach to proximal colon was approximately 30 minutes. There is a stent freya t in abdominal aorta and the common iliac arteries. There are changes of ventral hernia repair. The n asogastric tube tip is in the distal stomach. There is a total right hip arthroplasty. IMPRESSION: 1. Mildly dilated distal small bowel with prompt passage of contrast to the colon, consistent with lo w-grade partial obstruction versus adynamic ileus. 2. Moderate-sized sliding hiatal hernia. Reviewed, dictated and finalized at location A. IMPRESSION: 1. Mildly dilated distal small bowel with prompt passage of contrast to the col on, consistent with low-grade partial obstruction versus adynamic ileus. 2. Moderate-sized sliding hiatal hernia.
--- NOTE | ~2020-12-05 | XR_ITS ---
EXAMINATION: XR abdomen obstructive series DATE: 12/08/2020 05:31 INDICATION: Follow-up of partial versus complete small bowel obstruction. TECHNIQUE: Upright and supine views of the abdomen were obtained. COMPARISON: 12/07/2020 FINDINGS: The nasogastric tube has been partially withdrawn. The proximal side port is in the distal esophagus. Recommend advancing 3 to 4 cm. There is no free intraperitoneal gas. A couple of persisten tly dilated small bowel loops are present in the midabdomen. There is gas in the colon. There are heidy nges of bifurcated endoluminal aortic stent graft repair, mesh ventral hernia repair, and right total hip arthroplasty. IMPRESSION: 1. Persistently dilated small bowel loops in the midabdomen, consistent with ileus versus partial obs truction. 2. Nasogastric tube partially retracted with the side port in the distal esophagus. Recommend advanci ng 3 to 4 cm. Reviewed, dictated and finalized at location A. IMPRESSION: 1. Persistently dilated small bowel loops in the midabdomen, consistent with il eus versus partial obstruction. 2. Nasogastric tube partially retracted with the side port in the distal esopha yusuf. Recommend advancing 3 to 4 cm.
--- NOTE | ~2020-12-05 | CT_ITS ---
EXAMINATION: CT abdomen pelvis w con DATE: 12/05/2020 12:46 INDICATION: Abdominal distention. Bowel obstruction. TECHNIQUE: Computed tomography (CT) of the abdomen and pelvis was performed with 100 mL Omnipaque-350 intravenous contrast. Automated exposure control and iterative reconstruction technique were employe d. The dose-length product was 737.59 mGy-cm. COMPARISON: 11/01/2020 FINDINGS: Emphysema and mild dependent atelectasis at the lung bases. Heart size is normal. Atherosclerotic cor onary artery calcifications. No pericardial or pleural effusion. Moderate-sized sliding-type hiatal h ernia. There is some edematous wall thickening at the distal esophagus which could be seen with reflu x esophagitis. 8 mm right hepatic lobe cyst. Gallbladder and bilateral adrenal glands are normal. Hallman creas divisum. Otherwise normal pancreas. Decreased volume of geographic regions of evolving infarct in the spleen. Bilateral renal cysts the largest on the right measuring 4 cm in maximal diameter. Pos toperative change of prior ventral hernia mesh repair. There is a small fat-containing ventral hernia cephalad to the level of the repair. 4.1 cm diameter fusiform infrarenal abdominal aortic aneurysm w ith prior aortobiiliac stent grafting. The graft appears patent with no evident endoleak. Small bowel obstruction with multiple dilated loops of small bowel measuring up to 5 cm in maximal diameter with transition point in the right lower quadrant near the ileum where the bowel under dose and 180 degre e change in direction likely related to an adhesion. The more distal ileum remains decompressed exten ding to the ileocecal valve. Moderate amount of stool in the cecum. The more distal colon is more rel atively decompressed. There are few scattered diverticula along the descending and sigmoid colon with out adjacent inflammatory change to suggest diverticulitis. No pneumatosis. Bladder is normal. Mild p rostatomegaly. Minimal ascites in the deep pelvis. No abscess or free intraperitoneal gas. IMPRESSION: 1. Small bowel obstruction with transition point in the right lower quadrant likely due to an adhesio n. 2. Moderate-sized sliding-type hiatal hernia. 3. Small fat-containing supraumbilical ventral hernia 4. Stable appearance of a 4.1 cm fusiform infrarenal abdominal aortic aneurysm with aortobiiliac endo luminal stent graft. 5. Several evolving subacute splenic infarcts. 6. Emphysema. Reviewed, dictated and finalized at location A. IMPRESSION: 1. Small bowel obstruction with transition point in the right lower quadrant li rex due to an adhesion. 2. Moderate-sized sliding-type hiatal hernia. 3. Small fat-containing supraumbilical ventral hernia 4. Stable appearance of a 4.1 cm fusiform infrarenal abdominal aortic aneurysm with aortobiiliac endoluminal stent graft. 5. Several evolving subacute splenic infarcts. 6. Emphysema.
[2020-12-05 11:15] VITALS: BP 110/74; PULSE 83; RESP 19; TEMP 36.8; O2SAT 96
--- NOTE | 2020-12-05 11:28 | ED.ABDPAIN ---
HPI - Abdominal Pain General Chief Complaint: Abdominal Pain Stated Complaint: abnormal abd xray/abd pain Time Seen by Provider: 12/05/20 10:39 Source: patient, RN notes reviewed and old records reviewed Mode of arrival: ambulatory Limitations: no limitations History of Present Illness HPI narrative: This is a 80 year old male who presents for evaluation of abdominal pain. Patient was admitted to hospital 1 month ago for abdominal pain caused by possible ileus vs SBO. He states his pain returned 2 days after discharge from the hospital. He has been having intermittent upper abdominal pain, bloating with nausea for 1 month. His bowel movements have been occurring every other day, and he reports having normal bowel movement today . He takes miralax every other day. He was evaluated by his PCP yesterday who ordered outpatient labs and abdominal xray. He was told that his xray possibly showed an obstruction and it was recommended for him to come to ER. He denies fever or chills. He has been on clear liquid diet for 2 days and he took gas x. His abdomen is still distended but he states he feels better. Related Data Home Medications Medication Instructions Recorded Confirmed nitroglycerin 0.4 mg sublingual 0.4 mg SUBLINGUAL Q5M PRN 12/27/18 12/05/20 tablet metformin 500 mg tablet,extended 1,000 mg PO BID tablet 09/12/20 12/05/20 release 24 hr aspirin 81 mg PO DAILY 11/01/20 12/05/20 calcium carbonate-vitamin D2 2,000 tablet PO BID 12/05/20 12/05/20 [Calcium + Vitamin D] Allergies Allergy/AdvReac Type Severity Reaction Status Date / Time cefprozil Allergy Unknown Rash Verified 12/04/20 15:33 celecoxib Allergy Unknown Unknown Verified 12/04/20 15:33 erythromycin base Allergy Unknown Unknown Verified 12/04/20 15:33 lisinopril Allergy Unknown Unknown Verified 12/04/20 15:33 Penicillins Allergy Unknown Unknown Verified 12/04/20 15:33 Cephalosporins AdvReac Severe DIAHHREA Verified 12/04/20 15:33 Jezlton-KPL-PyK Reductase AdvReac Intermediate Other Verified 12/04/20 15:33 Inhibitor [Fvjishy-Eiv-Omw Reductase Inhibitor] Review of Systems Review of Systems: All systems reviewed & are unremarkable except as noted in HPI and below PMFSH Past Medical History Medical History Abscess of skin and subcutaneous tissue BPH loc w urin obs/LUTS CAD (coronary artery disease) COPD mixed type Epithelial inclusion cyst Former smoker GERD with esophagitis (Unknown) History of alcoholism Hypertension 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 thyroid function test snf (current) use of 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 vascular disease) with claudication Stable angina Type 2 diabetes mellitus (Unknown) Surgical History Surgical History H/O abdominal aortic aneurysm repair Endovascular done By Dr. Powell 2014 History of colon resection History of heart artery stent History of hernia surgery History of incision and drainage 03/14/20 back abscess History of total right hip arthroplasty S/P femoral-popliteal bypass surgery Rt. --July [address] Powell S/P right rotator cuff repair Family History Family History Mother Family history of migraine headaches Hypertension Colon cancer Grandparent Acute myocardial infarction Hypertension Sibling Hypertension Brain aneurysm Father Myocardial infarction Social History Social History (Updated 12/05/20 @ 18:35 by Danii Mathis NP) Social History: The patient resides with his . He has 2 children. 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 The patient is a former smoker. He does not use any alcohol marijuana or
[2020-12-05] MEDS: LACTATED RINGERS 1,000 ML 999 ML IV CONT (11:34)
[2020-12-05] MEDS: ONDANSETRON INJ 4 MG/2 ML VIAL IV PUSH (11:35)
[2020-12-05 11:55] LABS: Basophils Absolute Auto 0.1 K/mm3 (0.0-0.1); Basophils Percent Auto 0.6 % (0.2-1.2); Eosinophils Percent Auto 0.4 % (0-4.4); Hematocrit 34.3 % (42.0-52.0); Hemoglobin 11.2 g/dL (14.0-18.0); Immature Granulocyte Absolute 0.09 K/mm3 (0.00-0.031); Immature Granulocyte Percent A 1.2 % (0-0.5); Lymphocytes Absolute Auto 1.27 K/mm3 (0.9-3.2); Lymphocytes Percent Auto 16.2 % (18.3-44.2); Mean Corpuscular HGB Conc 32.7 g/dl (32-36); Mean Corpuscular Hemoglobin 28.6 pg (26-34); Mean Corpuscular Volume 87.7 fl (80-100); Mean Platelet Volume 9.4 fl (7.4-10.4); Monocytes Absolute Auto 1.8 K/mm3 (0.1-0.6); Monocytes Percent Auto 23.4 % (2.6-8.5); Neutrophils Absolute Auto 4.6 K/mm3 (1.3-6.7); Neutrophils Percent Auto 58.2 % (45.5-73.1); Platelet Count Result 293 k/mm3 (150-375); Red Blood Count 3.91 M/mm3 (4.6-6.20); Red Cell Distribution Width 16.7 % (11.5-14.5); White Blood Count 7.8 K/mm3 (4.5-10.0)
[2020-12-05 12:06] LABS: Lactic Acid Reflex 1.7 mmol/L (0.7-2.1)
[2020-12-05 12:07] LABS: Alanine Aminotransferase 11 U/L (4-50); Albumin Level 3.8 g/dL (3.5-5.1); Alkaline Phosphatase 58 U/L (38-126); Anion Gap 10 mmol/L (8-16); Aspartate Amino Transferase 17 U/L (17-59); Bilirubin,Total 0.7 mg/dL (0.2-1.3); Blood Urea Nitrogen 27 mg/dL (9-20); Calcium 9.1 mg/dL (8.4-10.2); Carbon Dioxide 25 mmol/L (22-30); Chloride 100 mmol/L (98-107); Estimated CRCL calculation 49 ml/min; Estimated Glomerular Filt Rate > 60; Glucose 135 mg/dL (65-110); Lipase 48 U/L (23-300); Potassium 4.5 mmol/L (3.4-5.0); Sodium 135 mmol/L (137-145)
[2020-12-05 12:35] LABS: Platelet Estimate Adequate (Adequate)
[2020-12-05 12:50] LABS: Add Urine Microscopic? YES; Appearance Urine Cloudy (Clear); Bacteria Urine Trace /hpf; Bilirubin Urine Negative (Negative); Blood Urine Negative (Negative); Color Urine Yellow (Yellow); Glucose Urine UA 3+ mg/dL (Negative); Ketones Urine Trace mg/dL (Negative); Leukocyte Esterase Ur Negative LEU/UL (Negative); Mucus Urine Rare /lpf; Nitrate Urine Negative (Negative); Protein Urine Negative (Negative); Specific Grav Ur 1.028 (1.001-1.035); Squamous Epithelial Cell Urine Rare /hpf (Few); WBC Urine 0-3 /hpf
[2020-12-05] MEDS: SODIUM CHLORIDE 0.9% IV 1,000 ML 125 ML IV CONT ×2 (15:30→23:44)
--- NOTE | 2020-12-05 15:34 | PC.NURSE ---
Message left for , per pt's request, letting her know that NG tube is in and surgeon has made rounds.
--- NOTE | 2020-12-05 15:44 | PM.CNGS ---
Assessment and Plan Assessment and plan (1) Small bowel obstruction: Onset Date: ~12/05/20 Code(s): K56.609 - Unspecified intestinal obstruction, unspecified as to partial versus complete obstruction Status: Acute Assessment and Plan: This is the main reason for the patient's admission. I have reviewed his workup in the ED. I have examined the patient and will follow with you. I would recommend that we do decompression with an NG tube overnight and repeat abdominal films in the morning. Patient is passing some flatus and had a bowel movement this morning, so hopefully this will resolve with decompression. It has been a long time since the patient had surgery so if surgery is required I believe I would take the opportunity to try to do a laparoscopic exploration with lysis of adhesions. This would try to help us avoid the mesh in the midline that he has in place. In view of his previous possible peritonitis and the required a left colon resection and ostomy, he may have a socked in abdomen which would not allow this, but we could at least try to see if the adhesions are amenable to laparoscopic takedown. Will await the results of careful observation. If he seems to respond to conservative management may consider small-bowel follow-through on Tuesday. Repeat labs and x-ray in the morning to include repeat lactic acid and a magnesium to be sure this is in normal range for his electrolytes. (2) COPD mixed type: Code(s): J44.9 - Chronic obstructive pulmonary disease, unspecified Status: Acute (3) Presence of stent in coronary artery in patient with coronary artery disease: Code(s): I25.10 - Atherosclerotic heart disease of [place] coronary artery without angina pectoris; Z95.5 - Presence of coronary angioplasty implant and graft Status: Acute (4) Hypertension: Qualifiers: Hypertension type: primary hypertension Qualified Code(s): I10 - Essential (primary) hypertension Code(s): I10 - Essential (primary) hypertension Status: Acute (5) Type 2 diabetes mellitus: Onset Date: Unknown Qualifiers: Diabetes mellitus complication status: with other specified complication Diabetes mellitus [facility] insulin use: without [facility] use Qualified Code(s): E11.69 - Type 2 diabetes mellitus with other specified complication Code(s): E11.9 - Type 2 diabetes mellitus without complications Status: Acute Assessment and Plan: Would appreciate the hospitalist's help in watching his diabetes while he is NPO. (6) NICOLE on CPAP: Onset Date: Unknown Code(s): G47.33 - Obstructive sleep apnea (adult) (pediatric); Z99.89 - Dependence on other enabling machines and devices Status: Acute Assessment and Plan: Probably would benefit from hospital provided CPAP while he is admitted to use for sleep. (7) GERD with esophagitis: Onset Date: Unknown Code(s): K21.0 - Gastro-esophageal reflux disease with esophagitis Status: Acute Assessment and Plan: Agree with use of BID Pepcid IV while his stomach is intubated with the NG tube. History of Present Illness Consult details Consult date: 12/05/20 Reason for consult: abdominal pain Requesting physician: Ousmane Rodriguez MD Narrative: This is a 80 year old male [facility] at the request of Dr. Caitlin Ndiaye his PCP for evaluation of abdominal pain. Patient was admitted to hospital 1 month ago for abdominal pain caused by possible ileus, diarrhea, possible enteritis. He states his pain returned 2 days after discharge from the hospital. Ever since then he has been having intermittent upper abdominal pain, bloating with nausea for 1 month. His bowel movements have been occurring every other day, and he reports having normal bowel movement today . He has been taking miralax every other to every third day. He was evaluated by
[2020-12-05 15:59] VITALS: BP 126/81; PULSE 90; RESP 20; O2SAT 95
--- NOTE | 2020-12-05 16:35 | PC.NURSE ---
Report given to [facility] RN, no further questions or concerns
[2020-12-05 16:49] VITALS: BP 108/78; PULSE 89; RESP 20; O2SAT 95
[2020-12-05 17:00] VITALS: BP 115/75; PULSE 84; RESP 18; TEMP 36.6; O2SAT 97
--- NOTE | 2020-12-05 18:19 | PM.IMHP ---
H&P: HPI History of Present Illness Date/Time: 12/05/20 18:19 this is a 80-year-old male patient who has had previous small-bowel obstructions with multiple abdominal surgeries. The patient came to the emergency room for evaluation of abdominal pain. The patient had been admitted 1 month ago for the similar symptoms and he also had an ileus versus a small-bowel obstruction at that time as well. The patient stated that his pain return 2 days after being discharged from this hospital. Patient stated he has been having intermittent upper abdominal pain and bloating and nausea for 1 month. He is bowel movements have been occurring every other day and reports that he did have an over a bowel movement today. He takes MiraLax every other day. He was evaluated by his primary care doctor yesterday in ordered outpatient labs with an abnormal x-ray. He was told that he has and possible small-bowel obstruction and recommended that he return to the emergency room. He denies any fever chills. The patient has been on a clear liquid diet for 2 days and he also took Gas-X. His abdomen is distended and firm. CT of the abdomen and pelvis was read as the following 1. Small bowel obstruction with transition point in the right lower quadrant likely due to an adhesion. 2. Moderate-sized sliding-type hiatal hernia. 3. Small fat-containing supraumbilical ventral hernia 4. Stable appearance of a 4.1 cm fusiform infrarenal abdominal aortic aneurysm with aortobiiliac endoluminal stent graft. 5. Several evolving subacute splenic infarcts. 6. Emphysema. NG tube was placed in the left near and the x-ray shows NG tube tip in the stomach. The patient was started on IV fluids and Zofran. Surgery has been consulted. Conservative care with decompression. The patient is being admitted to inpatient services on the date of service of 12/05/2020. Chief Complaint: Abdominal pain Review of Systems Review of Systems: All systems reviewed & are unremarkable except as noted in HPI and below Constitutional: Constitutional: Reports as per HPI and Reports no additional constitutional complaints Eyes: Eyes: Reports as per HPI and Reports no additional eye complaints ENT: Reports system reviewed and no additional complaints, except as documented and Reports Normal hearing present Cardiovascular: Cardiovascular: Reports no additional cardiovascular complaints Respiratory: Respiratory: Reports no additional respiratory complaints and Reports no additional respiratory complaints Gastrointestinal: Gastrointestinal: Reports as per HPI and Reports no additional gastrointestinal complaints Musculoskeletal: Musculoskeletal: Reports no additional musculoskeletal complaints Integumentary/Breasts: Skin/Breast: Reports system reviewed and no additional complaints, except as docu and Reports as per HPI Neurologic: Reports system reviewed and no additional complaints, except as documented, Reports as per HPI and Reports Normal hearing present Psychiatric: Psychiatric: Reports no additional psychiatric complaints and Reports as per HPI Endocrine: Endocrine: Reports no additional endocrine complaints Hematologic/Lymphatic: Hematologic/Lymphatic: Reports no additional hematologic/lymphatic complaints Allergic/Immunologic: Allergic/Immunologic: Reports no additional allergic/immunologic complaints [facility] Past Medical History Medical History Abscess of skin and subcutaneous tissue BPH loc w urin obs/LUTS CAD (coronary artery disease) COPD mixed type Epithelial inclusion cyst Former smoker GERD with esophagitis (Unknown) History of alcoholism Hypertension 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
[2020-12-05 20:09] VITALS: BP 126/69; PULSE 83; RESP 20; TEMP 36.2; O2SAT 94
[2020-12-05] MEDS: FAMOTIDINE 20 MG/2 ML VIAL IV PUSH (20:40)
[2020-12-06 00:24] LABS: Glucose Point of Care 104 mg/dl (65-105)
[2020-12-06 04:34] VITALS: BP 98/51; PULSE 79; RESP 18; TEMP 36.3; O2SAT 93
[2020-12-06] MEDS: LEVOTHYROXINE SODIUM INJ 100 MCG/5 ML VIAL 75 MCG IV PUSH (05:45)
[2020-12-06 05:49] LABS: Basophils Percent Auto 0.7 % (0.2-1.2); Eosinophils Percent Auto 0.5 % (0-4.4); Hematocrit 32.7 % (42.0-52.0); Hemoglobin 10.6 g/dL (14.0-18.0); Immature Granulocyte Absolute 0.06 K/mm3 (0.00-0.031); Lymphocytes Absolute Auto 1.27 K/mm3 (0.9-3.2); Lymphocytes Percent Auto 21.3 % (18.3-44.2); Mean Corpuscular HGB Conc 32.4 g/dl (32-36); Mean Corpuscular Hemoglobin 28.1 pg (26-34); Mean Corpuscular Volume 86.7 fl (80-100); Mean Platelet Volume 9.7 fl (7.4-10.4); Monocytes Absolute Auto 1.5 K/mm3 (0.1-0.6); Monocytes Percent Auto 24.8 % (2.6-8.5); Neutrophils Absolute Auto 3.1 K/mm3 (1.3-6.7); Neutrophils Percent Auto 51.7 % (45.5-73.1); Platelet Count Result 294 k/mm3 (150-375); Red Blood Count 3.77 M/mm3 (4.6-6.20); Red Cell Distribution Width 16.6 % (11.5-14.5)
[2020-12-06 05:50] LABS: Alanine Aminotransferase 9 U/L (4-50); Alkaline Phosphatase 58 U/L (38-126); Anion Gap 9 mmol/L (8-16); Aspartate Amino Transferase 14 U/L (17-59); Bilirubin,Total 0.3 mg/dL (0.2-1.3); Blood Urea Nitrogen 20 mg/dL (9-20); Calcium 8.4 mg/dL (8.4-10.2); Carbon Dioxide 21 mmol/L (22-30); Chloride 104 mmol/L (98-107); Estimated CRCL calculation 49 ml/min; Estimated Glomerular Filt Rate > 60; Glucose 105 mg/dL (65-110); Potassium 4.1 mmol/L (3.4-5.0); Sodium 134 mmol/L (137-145)
[2020-12-06 05:52] LABS: Lactic Acid Reflex 0.7 mmol/L (0.7-2.1)
[2020-12-06 06:38] LABS: Glucose Point of Care 111 mg/dl (65-105)
--- NOTE | 2020-12-06 08:00 | PM.IMPN ---
Progress Note: A&P Assessment and Plan (1) Small bowel obstruction: Onset Date: ~12/05/20 Code(s): K56.609 - Unspecified intestinal obstruction, unspecified as to partial versus complete obstruction Status: Acute Assessment and Plan: Patient presented with partial intestinal obstruction, improving with conservative management, NPO, NG tube and suction. Continue NG tube decompression. Follow-up repeat abdominal films. Follow up surgery recommendation. Patient has a history of having a mesh. (2) 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 thyroid function test: Code(s): E03.9 - Hypothyroidism, unspecified; R94.6 - Abnormal results of thyroid function studies Status: Acute Assessment and Plan: Supplement with IV levothyroxine at half of p.o. dose. (3) NICOLE on CPAP: Onset Date: Unknown Code(s): G47.33 - Obstructive sleep apnea (adult) (pediatric); Z99.89 - Dependence on other enabling machines and devices Status: Acute Assessment and Plan: Continue supplementation overnight. The patient on CPAP at home. May have to use oxygen overnight. (4) BPH loc w urin obs/LUTS: Code(s): N40.1 - Benign prostatic hyperplasia with lower urinary tract symptoms Status: Acute Assessment and Plan: The patient is NPO. Give finasteride and tamsulosin and clamp NG tube for 2 hours per surgery recommendation. (5) Hypertension: Qualifiers: Hypertension type: primary hypertension Qualified Code(s): I10 - Essential (primary) hypertension Code(s): I10 - Essential (primary) hypertension Status: Acute Assessment and Plan: P.r.n. hydralazine (6) Type 2 diabetes mellitus: Onset Date: Unknown Qualifiers: Diabetes mellitus complication status: with other specified complication Diabetes mellitus intermediate insulin use: without salvage determiner use Qualified Code(s): E11.69 - Type 2 diabetes mellitus with other specified complication Code(s): E11.9 - Type 2 diabetes mellitus without complications Status: Acute Assessment and Plan: Accu-Cheks every 6 hours. Sliding scale insulin. Fasting blood glucose is 105. Accu-Chek this morning was 111. (7) Presence of stent in coronary artery in patient with coronary artery disease: Code(s): I25.10 - Atherosclerotic heart disease of [place] coronary artery without angina pectoris; Z95.5 - Presence of coronary angioplasty implant and graft Status: Acute Assessment and Plan: The patient is NPO and is typically on Brilinta. However it looks like his last stent was in 2019 and his 1st stent was sometime over 20 years ago. We can do rectal aspirin and DVT prophylaxis. (8) skilled nursing (current) use of 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/antiplatelets: Code(s): Z79.02 - skilled nursing (current) use of 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/antiplatelets Status: Acute Assessment and Plan: The patient is on Brilinta and aspirin. (9) CAD (coronary artery disease): Qualifiers: Associated angina: with stable angina Coronary Disease-Associated Artery/Lesion type: unspecified vessel or lesion type [place] vs. transplanted heart: [place] heart Qualified Code(s): I25.118 - Atherosclerotic heart disease of [place] coronary artery with other forms of angina pectoris Code(s): I25.10 - Atherosclerotic heart disease of [place] coronary artery without angina pectoris Status: Acute Assessment and Plan: Continue with rectal aspirin. (10) COPD mixed type: Code(s): J44.9 - Chronic obstructive pulmonary disease, unspecified Status: Acute Assessment and Plan: Use the Spiriva that formulary here. (11) PVD (peripheral vascular disease) with claudication: Code(s): I73.9 - Peripheral vascular disease, unspecified Status: Acute Assessment and Plan: Continue with aspirin for now. Recent Doppler of lower extremity reveals patent vessels. Subjective Date/time
[2020-12-06] MEDS: SODIUM CHLORIDE 0.9% IV 1,000 ML 125 ML IV CONT ×2 (08:27→17:00)
[2020-12-06] MEDS: ASPIRIN 300 MG SUPPOSITORY RECTAL (08:30)
[2020-12-06] MEDS: ENOXAPARIN 40 MG/0.4 ML SYRINGE SUB-Q (08:30)
[2020-12-06] MEDS: FAMOTIDINE 20 MG/2 ML VIAL IV PUSH ×2 (08:30→20:23)
--- NOTE | 2020-12-06 12:47 | PM.PNGS ---
Progress Note: A&P Assessment and Plan (1) Abdominal pain: Code(s): R10.9 - Unspecified abdominal pain Status: Acute (2) Infarction of spleen: Code(s): D73.5 - Infarction of spleen Status: Acute (3) GERD with esophagitis: Onset Date: Unknown Code(s): K21.0 - Gastro-esophageal reflux disease with esophagitis Status: Acute (4) COPD mixed type: Code(s): J44.9 - Chronic obstructive pulmonary disease, unspecified Status: Acute (5) Type 2 diabetes mellitus: Onset Date: Unknown Qualifiers: Diabetes mellitus complication status: with other specified complication Diabetes mellitus intermediate school teacher insulin use: without alf use Qualified Code(s): E11.69 - Type 2 diabetes mellitus with other specified complication Code(s): E11.9 - Type 2 diabetes mellitus without complications Status: Acute (6) Hypertension: Qualifiers: Hypertension type: primary hypertension Qualified Code(s): I10 - Essential (primary) hypertension Code(s): I10 - Essential (primary) hypertension Status: Acute Subjective Subjective Date/Time Seen: 12/06/20 12:47 Patient reports: no new complaints, feels better and flatus Interval history: Patient reports abdominal pain is somewhat less. His NG tube was in but apparently not hooked up to suction overnight. He did not have any nausea. He did not have any vomiting. He has not had a bowel movement yet since he arrived at the hospital. He has been up walking to the bathroom with help and has been able to void okay. Review of Systems Review of Systems: All systems reviewed & are unremarkable except as noted in HPI and below Constitutional: Constitutional: Reports as per HPI, Denies chills and Denies fever(s) Cardiovascular: Cardiovascular: Denies chest pain and Denies dyspnea Respiratory: Respiratory: Reports no additional respiratory complaints and Denies dyspnea Gastrointestinal: Gastrointestinal: Reports as per HPI and Denies bloating Musculoskeletal: Musculoskeletal: Reports no additional musculoskeletal complaints Neurologic: Denies memory loss Psychiatric: Psychiatric: Denies anxiety and Denies memory loss Exam Const: General: cooperative, comfortable, alert and awake Orientation/consciousness: patient oriented x3 HENMT: Head: normal to inspection Mouth: Yes moist mucous membranes Eyes: Sclera: sclerae normal Pupils: Equal, round and reactive pupils present Neck: Neck: normal visual inspection and no JVD Chest: Chest palpation & inspection: normal inspection of the chest Resp: Effort & Inspection: normal respiratory effort Auscultation: clear to auscultation bilaterally Cardio: Jugular venous distension: no JVD Rate: regular rate GI: Inspection: scar (Vertical midline from above the umbilicus to pubic bone.) and other (Pt. also has a transverse scar left lower quad scar from previous ostomy.) GI Palp: Yes abdominal tenderness (Some in right lower quadrant but not as much as yesterday.) Auscultation: normal bowel sounds Rectal Exam: deferred Neuro: General: patient oriented x3 Cranial nerves: Yes Equal, round and reactive pupils present Objective Data Vital Signs Vital Signs: Vital Signs - 24 hr 12/05/20 15:59 12/05/20 16:49 12/05/20 17:00 Temperature 36.6 C Pulse Rate 90 89 84 Respiratory Rate 20 20 18 Blood Pressure 126/81 108/78 115/75 Pulse Oximetry 95 95 97 12/05/20 20:09 12/06/20 04:34 Temperature 36.2 C L 36.3 C L Pulse Rate 83 79 Respiratory Rate 20 18 Blood Pressure 126/69 98/51 L Pulse Oximetry 94 93 Intake/Output Intake/Output: Intake & Output 12/03/20 12/04/20 12/05/20 12/06/20 23:59 23:59 23:59 23:59 Intake Total 2100 1100 Output Total 925 Balance 2100 175 Meds/Results Medications: Active Medications Generic Name Dose Route Start Last Admin Trade Name Freq PRN Reason Stop Dose Admin Aspirin 300 mg 12/06/20 0
[2020-12-06 12:48] LABS: Glucose Point of Care 78 mg/dl (65-105)
[2020-12-06] MEDS: FINASTERIDE 5 MG TABLET PO (13:21)
[2020-12-06] MEDS: TAMSULOSIN HCL 0.4 MG CAPSULE PO (13:21)
[2020-12-06 14:43] VITALS: BP 117/62; PULSE 75; RESP 18; TEMP 36.6; O2SAT 97
[2020-12-06 17:48] LABS: Glucose Point of Care 86 mg/dl (65-105)
[2020-12-06] MEDS: MAGNESIUM HYDROXIDE SUSP 30 ML UDC FEED TUBE (20:23)
[2020-12-06 21:16] VITALS: BP 117/62; PULSE 84; RESP 16; TEMP 36.8; O2SAT 99
[2020-12-06 23:57] LABS: Glucose Point of Care 83 mg/dl (65-105)
[2020-12-07 05:22] LABS: Basophils Absolute Auto 0.1 K/mm3 (0.0-0.1); Basophils Percent Auto 0.8 % (0.2-1.2); Eosinophils Absolute Auto 0.1 K/mm3 (0-0.3); Eosinophils Percent Auto 1.1 % (0-4.4); Hematocrit 34.4 % (42.0-52.0); Hemoglobin 10.8 g/dL (14.0-18.0); Immature Granulocyte Absolute 0.16 K/mm3 (0.00-0.031); Immature Granulocyte Percent A 2.2 % (0-0.5); Lymphocytes Absolute Auto 1.36 K/mm3 (0.9-3.2); Mean Corpuscular HGB Conc 31.4 g/dl (32-36); Mean Corpuscular Hemoglobin 28.3 pg (26-34); Mean Corpuscular Volume 90.1 fl (80-100); Mean Platelet Volume 9.4 fl (7.4-10.4); Monocytes Absolute Auto 1.6 K/mm3 (0.1-0.6); Neutrophils Absolute Auto 3.9 K/mm3 (1.3-6.7); Neutrophils Percent Auto 54.9 % (45.5-73.1); Platelet Count Result 289 k/mm3 (150-375); Red Blood Count 3.82 M/mm3 (4.6-6.20); White Blood Count 7.2 K/mm3 (4.5-10.0)
[2020-12-07 05:24] VITALS: BP 117/61; PULSE 75; RESP 16; TEMP 36.4; O2SAT 94
[2020-12-07 05:46] LABS: Anion Gap 15 mmol/L (8-16); Blood Urea Nitrogen 15 mg/dL (9-20); Calcium 8.2 mg/dL (8.4-10.2); Carbon Dioxide 16 mmol/L (22-30); Chloride 106 mmol/L (98-107); Estimated CRCL calculation 54 ml/min; Estimated Glomerular Filt Rate > 60; Glucose 81 mg/dL (65-110); Potassium 3.7 mmol/L (3.4-5.0); Sodium 137 mmol/L (137-145)
[2020-12-07] MEDS: SODIUM CHLORIDE 0.9% IV 1,000 ML 125 ML IV CONT ×2 (06:25→12:56)
[2020-12-07 06:44] LABS: Glucose Point of Care 74 mg/dl (65-105)
[2020-12-07] MEDS: LEVOTHYROXINE SODIUM INJ 100 MCG/5 ML VIAL 75 MCG IV PUSH (06:47)
--- NOTE | 2020-12-07 07:58 | PM.IMPN ---
Progress Note: A&P Assessment and Plan (1) Small bowel obstruction: Onset Date: ~12/05/20 Code(s): K56.609 - Unspecified intestinal obstruction, unspecified as to partial versus complete obstruction Status: Acute Assessment and Plan: Patient presented with partial intestinal obstruction. He is improving clinically with conservative management, NPO, NG tube and suction. Continue conservative management . Follow up surgery recommendation. Patient has a history of having a mesh. (2) 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 thyroid function test: Code(s): E03.9 - Hypothyroidism, unspecified; R94.6 - Abnormal results of thyroid function studies Status: Acute Assessment and Plan: Supplement with IV levothyroxine at half of p.o. dose. (3) NICOLE on CPAP: Onset Date: Unknown Code(s): G47.33 - Obstructive sleep apnea (adult) (pediatric); Z99.89 - Dependence on other enabling machines and devices Status: Acute Assessment and Plan: Continue supplementation overnight. The patient on CPAP at home. May have to use oxygen overnight. (4) BPH loc w urin obs/LUTS: Code(s): N40.1 - Benign prostatic hyperplasia with lower urinary tract symptoms Status: Acute Assessment and Plan: The patient is NPO. Give finasteride and tamsulosin and clamp NG tube for 2 hours per surgery recommendation. (5) Hypertension: Qualifiers: Hypertension type: primary hypertension Qualified Code(s): I10 - Essential (primary) hypertension Code(s): I10 - Essential (primary) hypertension Status: Acute Assessment and Plan: P.r.n. hydralazine. blood pressures in the 117/62-1 17/61 range. (6) Type 2 diabetes mellitus: Onset Date: Unknown Qualifiers: Diabetes mellitus half-way insulin use: without long wall mining machine helper use Diabetes mellitus complication status: with other specified complication Qualified Code(s): E11.69 - Type 2 diabetes mellitus with other specified complication Code(s): E11.9 - Type 2 diabetes mellitus without complications Status: Acute Assessment and Plan: Accu-Cheks every 6 hours. Sliding scale insulin. Fasting blood glucose is 81. Accu-Chek In the 74-83 range. (7) Presence of stent in coronary artery in patient with coronary artery disease: Code(s): I25.10 - Atherosclerotic heart disease of [place] coronary artery without angina pectoris; Z95.5 - Presence of coronary angioplasty implant and graft Status: Acute Assessment and Plan: The patient is NPO and is typically on Brilinta. However it looks like his last stent was in 2019 and his 1st stent was sometime over 20 years ago. Continue rectal aspirin and DVT prophylaxis. (8) halfway (current) use of 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/antiplatelets: Code(s): Z79.02 - long term care social worker (current) use of 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/antiplatelets Status: Acute Assessment and Plan: The patient is on Brilinta and aspirin. continue rectal aspirin. (9) CAD (coronary artery disease): Qualifiers: Coronary Disease-Associated Artery/Lesion type: unspecified vessel or lesion type [place] vs. transplanted heart: [place] heart Associated angina: with stable angina Qualified Code(s): I25.118 - Atherosclerotic heart disease of [place] coronary artery with other forms of angina pectoris Code(s): I25.10 - Atherosclerotic heart disease of [place] coronary artery without angina pectoris Status: Acute Assessment and Plan: Continue with rectal aspirin. (10) COPD mixed type: Code(s): J44.9 - Chronic obstructive pulmonary disease, unspecified Status: Acute Assessment and Plan: Use the Spiriva that formulary here. (11) PVD (peripheral vascular disease) with claudication: Code(s): I73.9 - Peripheral vascular disease, unspecified Status: Acute Assessment and Plan: Continue with aspirin for now. Recent Doppler of low
--- NOTE | 2020-12-07 08:15 | PC.NURSE ---
Patient to XRay via wheelchair, NGT clamped IVF saline locked.
--- NOTE | 2020-12-07 08:33 | PC.NURSE ---
Pt returned from XRay.
[2020-12-07] MEDS: TAMSULOSIN HCL 0.4 MG CAPSULE PO (08:34)
[2020-12-07] MEDS: FAMOTIDINE 20 MG/2 ML VIAL IV PUSH ×2 (08:34→20:15)
[2020-12-07] MEDS: ENOXAPARIN 40 MG/0.4 ML SYRINGE SUB-Q (08:34)
[2020-12-07] MEDS: ASPIRIN 300 MG SUPPOSITORY RECTAL (08:34)
[2020-12-07] MEDS: FINASTERIDE 5 MG TABLET PO (08:34)
[2020-12-07 10:50] VITALS: O2SAT 93
[2020-12-07 12:00] LABS: Glucose Point of Care 80 mg/dl (65-105)
--- NOTE | 2020-12-07 13:36 | PM.PNGS ---
Progress Note: A&P Assessment and Plan (1) Abdominal pain: Code(s): R10.9 - Unspecified abdominal pain Status: Acute Assessment and Plan: This seems to have resolved. Patient is comfortable except for some irritation from the NG tube. today's plain film still reveals a loop of dilated small bowel in the mid abdomen. However, the patient has had a couple bowel movements and is passing gas. Will continue conservative management & recheck labs the morning. Recheck abdominal films in the morning. He is not getting much out his NG at all. He did not have any cramping when he took milk of magnesia down the NG last evening. Due to his significant history of intra-abdominal surgery we may still need to do a small-bowel follow-through but will await the results of tomorrow's abdominal films in the morning. Will go ahead and give another dose of milk a magnesia down the NG today. Continue IV hydration and holding on usual home meds other than those that are essential. He states he is not having any voiding problems at this time. (2) Infarction of spleen: Code(s): D73.5 - Infarction of spleen Status: Acute Assessment and Plan: Patient states the day he did trip and fall in his garden back in July and he was told that when he was checked in the ED that he did have some changes in the spleen possibly related to the fall. (3) GERD with esophagitis: Onset Date: Unknown Code(s): K21.0 - Gastro-esophageal reflux disease with esophagitis Status: Acute Assessment and Plan: Agree with use of BID Pepcid IV while his stomach is intubated with the NG tube. (4) COPD mixed type: Code(s): J44.9 - Chronic obstructive pulmonary disease, unspecified Status: Acute Assessment and Plan: Hospitalist following and appropriate inhalers ordered. (5) Type 2 diabetes mellitus: Onset Date: Unknown Qualifiers: Diabetes mellitus complication status: with other specified complication Diabetes mellitus cad designer insulin use: without mcc use Qualified Code(s): E11.69 - Type 2 diabetes mellitus with other specified complication Code(s): E11.9 - Type 2 diabetes mellitus without complications Status: Acute Assessment and Plan: Would appreciate the hospitalist's help in watching his diabetes while he is NPO. (6) Hypertension: Qualifiers: Hypertension type: primary hypertension Qualified Code(s): I10 - Essential (primary) hypertension Code(s): I10 - Essential (primary) hypertension Status: Acute Assessment and Plan: Being monitored. Subjective Subjective Date/Time Seen: 12/07/20 12:36 Patient reports: no new complaints and bowel movement Interval history: Patient tolerated some milk a magnesia down the NG last evening. Did not have any cramping or abdominal pain after the dose. He states that his stools the this morning were solid. I explained to him that the x-ray this morning still showed old a dilated loop of small bowel. He is not nauseated and feels okay. He has been able to walk in the hallways. Review of Systems Review of Systems: All systems reviewed & are unremarkable except as noted in HPI and below Constitutional: Constitutional: Reports as per HPI, Reports no additional constitutional complaints, Denies chills, Reports fatigue, Denies fever(s), Denies malaise and Reports poor appetite Eyes: Eyes: Denies change in vision and Denies loss of vision ENT: Reports Normal hearing present, Denies change in voice, Denies dizziness, Denies hoarseness and Denies sore throat Cardiovascular: Cardiovascular: Denies chest pain, Denies leg edema and Denies dyspnea Respiratory: Respiratory: Reports no additional respiratory complaints, Denies cough, Denies dyspnea and Denies wheezing Gastrointestinal: Gastrointestinal: Reports as per HPI, Denies bloating, Denies hematochezia, Denies GI cramping, Den
[2020-12-07 14:00] VITALS: BP 112/81; PULSE 70; RESP 20; TEMP 36.1; O2SAT 98
[2020-12-07] MEDS: MAGNESIUM HYDROXIDE SUSP 30 ML UDC FEED TUBE (18:08)
[2020-12-07 18:28] LABS: Glucose Point of Care 86 mg/dl (65-105)
[2020-12-07 22:00] VITALS: BP 125/84; PULSE 81; RESP 18; TEMP 36.9; O2SAT 96
[2020-12-08] VITALS (7 sets, daily range): BP systolic 101–165; BP diastolic 61–79; PULSE 55–98; RESP 16–22; TEMP 36.2–37.3; O2SAT 93–99
[2020-12-08] MEDS: SODIUM CHLORIDE 0.9% IV 1,000 ML 125 ML IV CONT (00:49)
[2020-12-08 02:09] LABS: Glucose Point of Care 85 mg/dl (65-105)
[2020-12-08 05:14] LABS: Basophils Absolute Auto 0.1 K/mm3 (0.0-0.1); Basophils Percent Auto 1.4 % (0.2-1.2); Eosinophils Absolute Auto 0.1 K/mm3 (0-0.3); Eosinophils Percent Auto 1.2 % (0-4.4); Hematocrit 37.2 % (42.0-52.0); Hemoglobin 11.7 g/dL (14.0-18.0); Immature Granulocyte Absolute 0.31 K/mm3 (0.00-0.031); Immature Granulocyte Percent A 4.2 % (0-0.5); Lymphocytes Percent Auto 16.3 % (18.3-44.2); Mean Corpuscular HGB Conc 31.5 g/dl (32-36); Mean Corpuscular Hemoglobin 28.4 pg (26-34); Mean Corpuscular Volume 90.3 fl (80-100); Mean Platelet Volume 9.2 fl (7.4-10.4); Monocytes Absolute Auto 1.3 K/mm3 (0.1-0.6); Monocytes Percent Auto 17.6 % (2.6-8.5); Neutrophils Absolute Auto 4.4 K/mm3 (1.3-6.7); Neutrophils Percent Auto 59.3 % (45.5-73.1); Platelet Count Result 324 k/mm3 (150-375); Red Blood Count 4.12 M/mm3 (4.6-6.20); White Blood Count 7.4 K/mm3 (4.5-10.0)
[2020-12-08 05:25] LABS: Anion Gap 17 mmol/L (8-16); Blood Urea Nitrogen 10 mg/dL (9-20); Carbon Dioxide 15 mmol/L (22-30); Chloride 107 mmol/L (98-107); Estimated CRCL calculation 60 ml/min; Estimated Glomerular Filt Rate > 60; Glucose 94 mg/dL (65-110); Sodium 139 mmol/L (137-145)
[2020-12-08] MEDS: LEVOTHYROXINE SODIUM INJ 100 MCG/5 ML VIAL 75 MCG IV PUSH (06:00)
[2020-12-08 06:17] LABS: Glucose Point of Care 84 mg/dl (65-105)
[2020-12-08] MEDS: ASPIRIN 300 MG SUPPOSITORY RECTAL (08:58)
[2020-12-08] MEDS: ENOXAPARIN 40 MG/0.4 ML SYRINGE SUB-Q (08:58)
[2020-12-08] MEDS: FINASTERIDE 5 MG TABLET PO (08:58)
[2020-12-08] MEDS: TAMSULOSIN HCL 0.4 MG CAPSULE PO (08:58)
[2020-12-08] MEDS: FAMOTIDINE 20 MG/2 ML VIAL IV PUSH ×2 (08:58→21:55)
[2020-12-08 12:29] LABS: Glucose Point of Care 100 mg/dl (65-105)
--- NOTE | 2020-12-08 12:55 | PM.IMPN ---
Progress Note: A&P Assessment and Plan (1) Small bowel obstruction: Onset Date: ~12/05/20 Code(s): K56.609 - Unspecified intestinal obstruction, unspecified as to partial versus complete obstruction Status: Acute Assessment and Plan: Patient presented with partial intestinal obstruction. He is improving clinically with conservative management, NPO, NG tube and suction. Continue conservative management. Patient has a history of having a mesh. SBS showing mildly dilated distal small bowel with prompt passage of contrast to the colon consistent with low-grade partial obstruction versus adynamic ileus. Metabolic gap acidosis noted felt related to the NG tube to suction and/or ketosis. Lactic acid normal and doubt DKA. Follow. Hopefully will correct with resuming diet. Consider removing NGT and starting clear liquids. Will defer to GS. (2) 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 thyroid function test: Code(s): E03.9 - Hypothyroidism, unspecified; R94.6 - Abnormal results of thyroid function studies Status: Acute Assessment and Plan: Stable. Continue with IV levothyroxine at half of p.o. dose. Resume oral when able. (3) NICOLE on CPAP: Onset Date: Unknown Code(s): G47.33 - Obstructive sleep apnea (adult) (pediatric); Z99.89 - Dependence on other enabling machines and devices Status: Acute Assessment and Plan: Stable. Patient tolerating CPAP at night. Continue the same. (4) Hypertension: Qualifiers: Hypertension type: primary hypertension Qualified Code(s): I10 - Essential (primary) hypertension Code(s): I10 - Essential (primary) hypertension Status: Acute Assessment and Plan: Patient's blood pressure was reviewed on 12/08 Blood pressure remains well controlled. Will continue to monitor. P.r.n. hydralazine available (5) Type 2 diabetes mellitus: Onset Date: Unknown Qualifiers: Diabetes mellitus complication status: with other specified complication Diabetes mellitus senior living insulin use: without senior living use Qualified Code(s): E11.69 - Type 2 diabetes mellitus with other specified complication Code(s): E11.9 - Type 2 diabetes mellitus without complications Status: Acute Assessment and Plan: The patient's blood glucose was reviewed on 12/08 Glucose remains well controlled. Continue AccuCheks covering with sliding scale. Hypoglycemia protocol available as needed. Continue to monitor. (6) CAD (coronary artery disease): Qualifiers: Associated angina: with stable angina Coronary Disease-Associated Artery/Lesion type: unspecified vessel or lesion type [place] vs. transplanted heart: [place] heart Qualified Code(s): I25.118 - Atherosclerotic heart disease of [place] coronary artery with other forms of angina pectoris Code(s): I25.10 - Atherosclerotic heart disease of [place] coronary artery without angina pectoris Status: Acute Assessment and Plan: Stable. His last stent was in 2019 and his 1st stent was sometime over 20 years ago. Continue with rectal aspirin. Resume Coreg and Brilinta when able. (7) COPD mixed type: Code(s): J44.9 - Chronic obstructive pulmonary disease, unspecified Status: Acute Assessment and Plan: Lungs are clear. Not on oxygen. Continue his Spiriva here. (8) PVD (peripheral vascular disease) with claudication: Code(s): I73.9 - Peripheral vascular disease, unspecified Status: Acute Assessment and Plan: Patient is status post right lower extremity bypass in July 2020. Recent Doppler of lower extremity reveals patent vessels per previous provider. Xray showing a stent graft in abdominal aorta and the common iliac arteries as well. Continue with aspirin. He appears to be allergic to statin. Add Zetia when able. Resume Brilinta when able. (9) BPH loc w urin obs/LUTS: Code(s): N40.1 - B
--- NOTE | 2020-12-08 15:56 | PM.PNGS ---
Progress Note: A&P Assessment and Plan (1) Abdominal pain: Code(s): R10.9 - Unspecified abdominal pain Status: Acute Assessment and Plan: Pain has resolved. CT abd/pelvis on admission suggested evidence of a small bowel obstruction. Abdominal films this morning showed persistently dilated small bowel loops, suggesting PSBO vs ileus. Gastrografin small bowel follow through today showed mildly dilated small bowel but contrast moved through to the colon in 30 minutes. Will remove NG tube and start clear liquids. It is concerning that this is his second admission for the same issue in about a month. Etiology still not entirely clear? Intraabdominal adhesions? Ileus? Could any of his home medication be contributing to his symptoms? Seems to have resolved with conservative measures. Would recommend that he slowly be advanced on his diet. We will consult a structural analyst tomorrow to educate him on a low fiber diet, which he will likely need to continue for 2 weeks following discharge. (2) Infarction of spleen: Code(s): D73.5 - Infarction of spleen Status: Acute Assessment and Plan: Possibly related to an injury from a fall in July. (3) GERD with esophagitis: Onset Date: Unknown Code(s): K21.0 - Gastro-esophageal reflux disease with esophagitis Status: Acute (4) COPD mixed type: Code(s): J44.9 - Chronic obstructive pulmonary disease, unspecified Status: Acute Assessment and Plan: Management per Hospitalist. (5) Type 2 diabetes mellitus: Onset Date: Unknown Qualifiers: Diabetes mellitus complication status: with other specified complication Diabetes mellitus mcfp insulin use: without mcfp use Qualified Code(s): E11.69 - Type 2 diabetes mellitus with other specified complication Code(s): E11.9 - Type 2 diabetes mellitus without complications Status: Acute Assessment and Plan: BS has been controlled so far. Management per Hospitalist. Okay to resume home medications now that he is on clear liquids. (6) Hypertension: Qualifiers: Hypertension type: primary hypertension Qualified Code(s): I10 - Essential (primary) hypertension Code(s): I10 - Essential (primary) hypertension Status: Acute Assessment and Plan: Stable. Okay to resume home medications. (7) CAD (coronary artery disease): Qualifiers: Associated angina: with stable angina Coronary Disease-Associated Artery/Lesion type: unspecified vessel or lesion type [place] vs. transplanted heart: [place] heart Qualified Code(s): I25.118 - Atherosclerotic heart disease of [place] coronary artery with other forms of angina pectoris Code(s): I25.10 - Atherosclerotic heart disease of [place] coronary artery without angina pectoris Status: Acute (8) assisted (current) use of 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/antiplatelets: Code(s): Z79.02 - extermination supervisor (current) use of 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/antiplatelets Status: Acute Assessment and Plan: Continue to hold Brilinta until we know he is tolerating a more substantial diet. Additional Plan I have discussed the patient's case and plan of care with Dr. Bacon. Subjective Subjective Date/Time Seen: 12/08/20 15:56 Patient reports: no new complaints, feels better, flatus and bowel movement Interval history: This is a 80 yo M who presented with evidence of a SBO on CT. He has an NG tube and underwent a Gastrografin small bowel follow through today that showed contrast moving to the colon in 30 min. He is now seen on the medical floor. He denies any abdominal pain. No nausea while his NG was clamped for the contrast study. He reports multiple liquid BMs since the contrast study. No other complaints at this time. Review of Systems Review of Systems: All systems reviewed & are unremarkable except as noted in HPI and below Exam Const: General: no acute distress and awake Orientation/consciou
[2020-12-08 16:23] LABS: Glucose Point of Care 102 mg/dl (65-105)
[2020-12-08] MEDS: SODIUM CHLORIDE 0.9% IV 1,000 ML 75 ML IV CONT (16:41)
[2020-12-08] MEDS: carvediloL 3.125 MG TABLET PO (21:55)
[2020-12-09] VITALS (8 sets, daily range): BP systolic 100–132; BP diastolic 58–80; PULSE 62–81; RESP 16–20; TEMP 36–36.1; O2SAT 91–100
[2020-12-09 00:23] LABS: Glucose Point of Care 104 mg/dl (65-105)
[2020-12-09] MEDS: SODIUM CHLORIDE 0.9% IV 1,000 ML 75 ML IV CONT (05:30)
[2020-12-09 05:51] LABS: Basophils Absolute Auto 0.1 K/mm3 (0.0-0.1); Basophils Percent Auto 1.1 % (0.2-1.2); Eosinophils Absolute Auto 0.1 K/mm3 (0-0.3); Eosinophils Percent Auto 1.5 % (0-4.4); Hematocrit 31.5 % (42.0-52.0); Hemoglobin 9.9 g/dL (14.0-18.0); Immature Granulocyte Absolute 0.39 K/mm3 (0.00-0.031); Lymphocytes Absolute Auto 1.26 K/mm3 (0.9-3.2); Mean Corpuscular HGB Conc 31.4 g/dl (32-36); Mean Corpuscular Hemoglobin 28.1 pg (26-34); Mean Corpuscular Volume 89.5 fl (80-100); Mean Platelet Volume 9.4 fl (7.4-10.4); Monocytes Absolute Auto 1.3 K/mm3 (0.1-0.6); Monocytes Percent Auto 16.9 % (2.6-8.5); Neutrophils Absolute Auto 4.7 K/mm3 (1.3-6.7); Neutrophils Percent Auto 59.5 % (45.5-73.1); Platelet Count Result 302 k/mm3 (150-375); Red Blood Count 3.52 M/mm3 (4.6-6.20); Red Cell Distribution Width 17.2 % (11.5-14.5); White Blood Count 7.9 K/mm3 (4.5-10.0)
[2020-12-09 06:10] LABS: Albumin Level 2.8 g/dL (3.5-5.1); Anion Gap 11 mmol/L (8-16); Blood Urea Nitrogen 7 mg/dL (9-20); Calcium 8.5 mg/dL (8.4-10.2); Carbon Dioxide 17 mmol/L (22-30); Chloride 109 mmol/L (98-107); Estimated CRCL calculation 68 ml/min; Estimated Glomerular Filt Rate > 60; Glucose 106 mg/dL (65-110); Magnesium 1.5 mg/dL (1.6-2.3); Phosphorus 3.1 mg/dL (2.5-4.5); Potassium 3.9 mmol/L (3.4-5.0); Sodium 137 mmol/L (137-145)
[2020-12-09] MEDS: LEVOTHYROXINE SODIUM 150 MCG TABLET PO (06:27)
[2020-12-09 06:35] LABS: Glucose Point of Care 100 mg/dl (65-105)
[2020-12-09] MEDS: carvediloL 3.125 MG TABLET PO ×2 (09:02→21:40)
[2020-12-09] MEDS: MAGNESIUM SULF 2 GM/WATER 50ML 2 GM/50 ML BAG IVPB (09:02)
[2020-12-09] MEDS: FINASTERIDE 5 MG TABLET PO (09:03)
[2020-12-09] MEDS: FAMOTIDINE 20 MG/2 ML VIAL IV PUSH ×2 (09:03→21:41)
[2020-12-09] MEDS: ENOXAPARIN 40 MG/0.4 ML SYRINGE SUB-Q (09:03)
[2020-12-09] MEDS: ASPIRIN 81 MG ENTERIC TABLET PO (09:03)
[2020-12-09] MEDS: TAMSULOSIN HCL 0.4 MG CAPSULE PO (09:03)
[2020-12-09 11:35] LABS: Glucose Point of Care 188 mg/dl (65-105)
--- NOTE | 2020-12-09 12:32 | PM.IMPN ---
Progress Note: A&P Assessment and Plan (1) Small bowel obstruction: Onset Date: ~12/05/20 Code(s): K56.609 - Unspecified intestinal obstruction, unspecified as to partial versus complete obstruction Status: Acute Assessment and Plan: Patient presented with partial intestinal obstruction. He is improving clinically with conservative management, NPO, NG tube and suction. Patient has a history of having a mesh. SBS showing mildly dilated distal small bowel with prompt passage of contrast to the colon consistent with low-grade partial obstruction versus adynamic ileus. Metabolic gap acidosis noted felt related to the NG tube to suction and/or ketosis. Lactic acid normal and doubt DKA. NGT was removed and he was started on full liquid diet that he is tolerating well. Advance per GS. Stop IV fluids. Oral bicarb for a few doses. (2) 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 thyroid function test: Code(s): E03.9 - Hypothyroidism, unspecified; R94.6 - Abnormal results of thyroid function studies Status: Acute Assessment and Plan: Stable. Oral levothyroxine resumed (3) NICOLE on CPAP: Onset Date: Unknown Code(s): G47.33 - Obstructive sleep apnea (adult) (pediatric); Z99.89 - Dependence on other enabling machines and devices Status: Acute Assessment and Plan: Stable. Patient tolerating CPAP at night. Continue the same. (4) Hypertension: Qualifiers: Hypertension type: primary hypertension Qualified Code(s): I10 - Essential (primary) hypertension Code(s): I10 - Essential (primary) hypertension Status: Acute Assessment and Plan: Patient's blood pressure was reviewed on 12/09 Blood pressure remains reasonably well controlled. Coreg was resumed. Will continue to monitor. P.r.n. hydralazine available. Hold losartan for now (5) Type 2 diabetes mellitus: Onset Date: Unknown Qualifiers: Diabetes mellitus complication status: with other specified complication Diabetes mellitus watermelon inspector insulin use: without watermelon inspector use Qualified Code(s): E11.69 - Type 2 diabetes mellitus with other specified complication Code(s): E11.9 - Type 2 diabetes mellitus without complications Status: Acute Assessment and Plan: The patient's blood glucose was reviewed on 12/09 Glucose remains well controlled. Continue AccuCheks covering with sliding scale. Hypoglycemia protocol available as needed. Continue to monitor. (6) CAD (coronary artery disease): Qualifiers: Associated angina: with stable angina Coronary Disease-Associated Artery/Lesion type: unspecified vessel or lesion type [place] vs. transplanted heart: [place] heart Qualified Code(s): I25.118 - Atherosclerotic heart disease of [place] coronary artery with other forms of angina pectoris Code(s): I25.10 - Atherosclerotic heart disease of [place] coronary artery without angina pectoris Status: Acute Assessment and Plan: Stable. His last stent was in 2019 and his 1st stent was sometime over 20 years ago. Continue with Coreg, aspirin. Add back Brilinta since surgery appears less likely. (7) COPD mixed type: Code(s): J44.9 - Chronic obstructive pulmonary disease, unspecified Status: Acute Assessment and Plan: Lungs are clear. Not on oxygen. Continue Spiriva (8) PVD (peripheral vascular disease) with claudication: Code(s): I73.9 - Peripheral vascular disease, unspecified Status: Acute Assessment and Plan: Patient is status post right lower extremity bypass in July 2020. Recent Doppler of lower extremity reveals patent vessels per previous provider. Xray showing a stent graft in abdominal aorta and the common iliac arteries as well. Continue with aspirin. He appears to be allergic to statin. Add Zetia and resume Brilinta. (9) BPH loc w urin obs/LUTS: Code(s): N40.1 - Benign prostatic hy
[2020-12-09] MEDS: TICAGRELOR 90 MG TABLET PO ×2 (15:12→21:40)
[2020-12-09] MEDS: SODIUM BICARBONATE TAB 650 MG TABLET PO ×2 (15:12→21:40)
--- NOTE | 2020-12-09 15:19 | PM.PNGS ---
Progress Note: A&P Assessment and Plan (1) Abdominal pain: Code(s): R10.9 - Unspecified abdominal pain Status: Acute Assessment and Plan: CT abd/pelvis on admission suggested evidence of a small bowel obstruction. Resolved with conservative measures. Gastrografin small bowel follow through showed mildly dilated small bowel but contrast moved through to the colon in 30 minutes. Advance diet to low fiber. Will consult a dietitian for education on low fiber diet. Would recommend he follow this strictly x 2 weeks after discharge and plan to have him follow-up with Dr. Bacon as an outpatient. (2) Infarction of spleen: Code(s): D73.5 - Infarction of spleen Status: Acute Assessment and Plan: Possibly related to an injury from a fall in July. (3) GERD with esophagitis: Onset Date: Unknown Code(s): K21.0 - Gastro-esophageal reflux disease with esophagitis Status: Acute (4) COPD mixed type: Code(s): J44.9 - Chronic obstructive pulmonary disease, unspecified Status: Acute Assessment and Plan: Management per Hospitalist. (5) Type 2 diabetes mellitus: Onset Date: Unknown Qualifiers: Diabetes mellitus jail insulin use: without jail use Diabetes mellitus complication status: with other specified complication Qualified Code(s): E11.69 - Type 2 diabetes mellitus with other specified complication Code(s): E11.9 - Type 2 diabetes mellitus without complications Status: Acute Assessment and Plan: BS has been controlled so far. Management per Hospitalist. (6) Hypertension: Qualifiers: Hypertension type: primary hypertension Qualified Code(s): I10 - Essential (primary) hypertension Code(s): I10 - Essential (primary) hypertension Status: Acute Assessment and Plan: Stable. (7) CAD (coronary artery disease): Qualifiers: Coronary Disease-Associated Artery/Lesion type: unspecified vessel or lesion type [place] vs. transplanted heart: [place] heart Associated angina: with stable angina Qualified Code(s): I25.118 - Atherosclerotic heart disease of [place] coronary artery with other forms of angina pectoris Code(s): I25.10 - Atherosclerotic heart disease of [place] coronary artery without angina pectoris Status: Acute (8) nursing home (current) use of 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/antiplatelets: Code(s): Z79.02 - nursing home (current) use of 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/antiplatelets Status: Acute Assessment and Plan: Brilinta restarted. Additional Plan I have discussed the patient's case and plan of care with Dr. Bacon. Subjective Subjective Date/Time Seen: 12/09/20 15:19 Patient reports: no new complaints, feels better, tolerating liquids well, flatus, bowel movement and afebrile Interval history: Patient seen and examined. He reports feeling even better today. Denies any abdominal pain, nausea, or vomiting. He does not feel bloated. He reports 3 BMs today so far, with the last BM being the most solid formed substance since his gastrogarafin study. Review of Systems Review of Systems: All systems reviewed & are unremarkable except as noted in HPI and below Exam Const: General: comfortable, no acute distress and awake Orientation/consciousness: patient oriented x3 GI: Inspection: non-distended GI Palp: Yes Soft to palpation, No Tenderness to palpation present (GI) (slightly sore, but no significant tenderness), No Guarding due to palpation present (GI), Yes No hepatosplenomegaly present and No Rebound tenderness present Auscultation: normal bowel sounds Skin: General skin exam: normal color Neuro: General: moves all extremities and no focal motor deficits Extrem: General: normal to inspection Psych: Mental Status: mental status grossly normal Insight: Good insight present (Psych) Judgement: Good judgement present (Psych) Objective Data Vital Signs Vital Signs:
[2020-12-09 16:49] LABS: Glucose Point of Care 114 mg/dl (65-105)
[2020-12-09 21:53] LABS: Glucose Point of Care 155 mg/dl (65-105)
[2020-12-10 03:56] VITALS: BP 116/60; PULSE 73; RESP 20; TEMP 36.3; O2SAT 100
[2020-12-10 05:31] LABS: Hematocrit 31.1 % (42.0-52.0); Hemoglobin 10.3 g/dL (14.0-18.0); Mean Corpuscular HGB Conc 33.1 g/dl (32-36); Mean Corpuscular Hemoglobin 28.6 pg (26-34); Mean Corpuscular Volume 86.4 fl (80-100); Mean Platelet Volume 9.3 fl (7.4-10.4); Platelet Count Result 284 k/mm3 (150-375); Red Cell Distribution Width 16.7 % (11.5-14.5); White Blood Count 8.8 K/mm3 (4.5-10.0)
[2020-12-10 05:49] LABS: Anion Gap 8 mmol/L (8-16); Blood Urea Nitrogen 6 mg/dL (9-20); Calcium 8.6 mg/dL (8.4-10.2); Carbon Dioxide 22 mmol/L (22-30); Chloride 107 mmol/L (98-107); Estimated CRCL calculation 60 ml/min; Estimated Glomerular Filt Rate > 60; Glucose 140 mg/dL (65-110); Magnesium 1.9 mg/dL (1.6-2.3); Potassium 3.8 mmol/L (3.4-5.0); Sodium 137 mmol/L (137-145)
[2020-12-10] MEDS: LEVOTHYROXINE SODIUM 150 MCG TABLET PO (05:59)
[2020-12-10 07:37] LABS: Glucose Point of Care 131 mg/dl (65-105)
[2020-12-10 07:37] LABS: Glucose Point of Care 121 mg/dl (65-105)
[2020-12-10 09:27] VITALS: PULSE 87
[2020-12-10] MEDS: carvediloL 3.125 MG TABLET PO (09:27)
[2020-12-10] MEDS: SODIUM BICARBONATE TAB 650 MG TABLET PO (09:27)
[2020-12-10] MEDS: TICAGRELOR 90 MG TABLET PO (09:27)
[2020-12-10] MEDS: TAMSULOSIN HCL 0.4 MG CAPSULE PO (09:27)
[2020-12-10] MEDS: FINASTERIDE 5 MG TABLET PO (09:27)
[2020-12-10] MEDS: ASPIRIN 81 MG ENTERIC TABLET PO (09:28)
[2020-12-10] MEDS: ENOXAPARIN 40 MG/0.4 ML SYRINGE SUB-Q (09:28)
[2020-12-10] MEDS: FAMOTIDINE 20 MG/2 ML VIAL IV PUSH (09:28)
--- NOTE | 2020-12-10 10:04 | PM.PNGS ---
Progress Note: A&P Assessment and Plan (1) Abdominal pain: Code(s): R10.9 - Unspecified abdominal pain Status: Acute Assessment and Plan: CT abd/pelvis on admission suggested evidence of a small bowel obstruction. Resolved with conservative measures. Gastrografin small bowel follow through showed mildly dilated small bowel but contrast moved through to the colon in 30 minutes. Tolerating a low-fiber diet. Discussed recommending using MiraLax on a regular basis once discharged to keep his bowels moving regularly. Discussed other laxatives that could be used if he becomes constipated. Okay to discharge from a surgical standpoint today. We will schedule him to follow up with Dr. Bacon in the office in a few weeks. He was instructed to follow a low-fiber diet for at least 2 weeks. (2) Infarction of spleen: Code(s): D73.5 - Infarction of spleen Status: Acute (3) GERD with esophagitis: Onset Date: Unknown Code(s): K21.0 - Gastro-esophageal reflux disease with esophagitis Status: Acute (4) COPD mixed type: Code(s): J44.9 - Chronic obstructive pulmonary disease, unspecified Status: Acute (5) Type 2 diabetes mellitus: Onset Date: Unknown Qualifiers: Diabetes mellitus longterm insulin use: without meterman use Diabetes mellitus complication status: with other specified complication Qualified Code(s): E11.69 - Type 2 diabetes mellitus with other specified complication Code(s): E11.9 - Type 2 diabetes mellitus without complications Status: Acute (6) Hypertension: Qualifiers: Hypertension type: primary hypertension Qualified Code(s): I10 - Essential (primary) hypertension Code(s): I10 - Essential (primary) hypertension Status: Acute (7) CAD (coronary artery disease): Qualifiers: Coronary Disease-Associated Artery/Lesion type: unspecified vessel or lesion type [place] vs. transplanted heart: [place] heart Associated angina: with stable angina Qualified Code(s): I25.118 - Atherosclerotic heart disease of [place] coronary artery with other forms of angina pectoris Code(s): I25.10 - Atherosclerotic heart disease of [place] coronary artery without angina pectoris Status: Acute (8) moth exterminator (current) use of 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/antiplatelets: Code(s): Z79.02 - custodial (current) use of 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/antiplatelets Status: Acute Assessment and Plan: On Brilinta Additional Plan I have discussed the patient's case and plan of care with Dr. Bacon. Subjective Subjective Date/Time Seen: 12/10/20 10:04 Patient reports: no new complaints, feels better, tolerating a regular diet (low fiber ), flatus, diarrhea and afebrile Interval history: Patient seen and examined this morning. He reports feeling well. No issues overnight. Denies abdominal pain, nausea, or vomiting. Reports passing lots of flatus and is still having small liquid BMs. No other complaints at this time. Review of Systems Review of Systems: All systems reviewed & are unremarkable except as noted in HPI and below Gastrointestinal: Gastrointestinal: Reports as per HPI and Reports no additional gastrointestinal complaints Exam Const: General: comfortable, no acute distress and alert Orientation/consciousness: oriented to time GI: Inspection: non-distended GI Palp: Yes Soft to palpation, No Tenderness to palpation present (GI) and No Guarding due to palpation present (GI) Percussion: Yes normal to percussion Auscultation: normal bowel sounds Skin: General skin exam: normal color Neuro: General: moves all extremities and no focal motor deficits Extrem: General: normal to inspection and no edema Psych: Mental Status: mental status grossly normal Insight: Good insight present (Psych) Judgement: Good judgement present (Psych) Objective Data Vital Signs Vital Signs: Vital Signs - 24 hr 12/09/20 14:10 11/15
--- NOTE | 2020-12-10 10:12 | PCDIET ---
Nutrition consult for low fiber diet. See Nutritional Teaching Interventions. Thank you for the consult.
[2020-12-10 11:14] LABS: Glucose Point of Care 144 mg/dl (65-105)
--- NOTE | 2020-12-10 12:53 | PM.DS ---
DS: Admitting Diagnosis Discharge Date 12/10/20 Admitting Diagnosis Abdominal pain DS: Discharge Diagnosis Discharge Diagnosis (1) Small bowel obstruction: Onset Date: ~12/05/20 Code(s): K56.609 - Unspecified intestinal obstruction, unspecified as to partial versus complete obstruction Status: Acute Assessment and Plan: Patient presented with partial intestinal obstruction. He improved clinically with conservative management, NPO, NG tube and suction. Patient has a history of having a mesh. SBFT showing mildly dilated distal small bowel with prompt passage of contrast to the colon consistent with low-grade partial obstruction versus adynamic ileus. Metabolic gap acidosis noted felt related to the NG tube to suction and/or ketosis. Lactic acid normal and doubt DKA. NGT was removed and he was started on full liquid diet> He tolerated this well and was advanced to a low fiber diet. Home today. Appreciate GS input. (2) 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 thyroid function test: Code(s): E03.9 - Hypothyroidism, unspecified; R94.6 - Abnormal results of thyroid function studies Status: Acute Assessment and Plan: Stable. Oral levothyroxine was resumed when taking oral intake (3) NICOLE on CPAP: Onset Date: Unknown Code(s): G47.33 - Obstructive sleep apnea (adult) (pediatric); Z99.89 - Dependence on other enabling machines and devices Status: Acute Assessment and Plan: Stable. Patient tolerated CPAP at night. (4) Hypertension: Qualifiers: Hypertension type: primary hypertension Qualified Code(s): I10 - Essential (primary) hypertension Code(s): I10 - Essential (primary) hypertension Status: Acute Assessment and Plan: Patient's blood pressure was monitor closely.Blood pressure remained reasonably well controlled. Coreg was resumed. (5) Type 2 diabetes mellitus: Onset Date: Unknown Qualifiers: Diabetes mellitus complication status: with other specified complication Diabetes mellitus termination clerk insulin use: without termination clerk use Qualified Code(s): E11.69 - Type 2 diabetes mellitus with other specified complication Code(s): E11.9 - Type 2 diabetes mellitus without complications Status: Acute Assessment and Plan: The patient's blood glucose was monitored with AccuCheks covering with sliding scale. Hypoglycemia protocol was available as needed. Blood glucose remained well controlled. (6) CAD (coronary artery disease): Qualifiers: Associated angina: with stable angina Coronary Disease-Associated Artery/Lesion type: unspecified vessel or lesion type [place] vs. transplanted heart: [place] heart Qualified Code(s): I25.118 - Atherosclerotic heart disease of [place] coronary artery with other forms of angina pectoris Code(s): I25.10 - Atherosclerotic heart disease of [place] coronary artery without angina pectoris Status: Acute Assessment and Plan: Stable. His last stent was in 2019 and his 1st stent was sometime over 20 years ago. No issues. We continued Coreg, aspirin and Brilinta. (7) COPD mixed type: Code(s): J44.9 - Chronic obstructive pulmonary disease, unspecified Status: Acute Assessment and Plan: Stable. We continued his Spiriva. (8) PVD (peripheral vascular disease) with claudication: Code(s): I73.9 - Peripheral vascular disease, unspecified Status: Acute Assessment and Plan: Patient is status post right lower extremity bypass in July 2020. Recent Doppler of lower extremity reveals patent vessels per previous provider. Xray showing a stent graft in abdominal aorta and the common iliac arteries as well. We continue aspirin and Brilinta. He is allergic to statin but later states he takes a low dose of pitavastatin; he also can not tolerate Zetia. (9) BPH loc w urin obs/LUTS: Code(s): N40.1 - Benign pr
== END 2020-12-10 14:22 | disposition home or self-care (01) | DRG 390 ==
LOC: ANHED 11:05 → ANH2MED 16:11
PROVIDERS: Surgery; Admitting Provider Internal Medicine; Emergency Provider General Practice; PCP Family Medicine; Visit Provider Internal Medicine
DX: K56.600 Partial intestinal obstruction, unspecified as to cause (principal); D73.5 Infarction of spleen; E03.9 Hypothyroidism, unspecified; R94.6 Abnormal results of thyroid function studies; K21.00 Gastro-esophageal reflux disease with esophagitis, without bleeding; G47.33 Obstructive sleep apnea (adult) (pediatric); Z99.89 Dependence on other enabling machines and devices; E11.51 Type 2 diabetes mellitus with diabetic peripheral angiopathy without gangrene; I25.118 Atherosclerotic heart disease of native coronary artery with other forms of angina pectoris; I10 Essential (primary) hypertension; J44.9 Chronic obstructive pulmonary disease, unspecified; N40.0 Benign prostatic hyperplasia without lower urinary tract symptoms; Z79.02 Long term (current) use of 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/antiplatelets; Z79.82 Long term (current) use of aspirin; Z79.899 Other long term (current) drug therapy; Z87.891 Personal history of nicotine dependence; Z95.5 Presence of coronary angioplasty implant and graft; Z95.820 Peripheral vascular angioplasty status with implants and grafts
CPT/HCPCS: 36415; 74019; 74177; 74250; 80048; 80053; 80069; 81001; 82948; 83605; 83690; 83735; 85025; 85027; 94640; 96361; 96365; 96375; 99285; A9270; G0378; J0131; J1650; J2405; J3475; J7030; J7120; Q9967

== ENCOUNTER 2020-12-29 13:57 | Inpatient (IN) | payer MEDICARE, SELFPAY ==
[2020-12-29] VITALS (17 sets, daily range): BP systolic 54–133; BP diastolic 30–78; PULSE 64–96; RESP 16–30; TEMP 35.8–36.4; O2SAT 84–99; BMI 26.6
--- NOTE | ~2020-12-29 | XR_ITS ---
XR chest 1V portable DATE: 12/30/2020 05:18 INDICATION: Intubated patient. Hypoxia. TECHNIQUE: Portable AP chest on 12/30/2020 0504 hours COMPARISON: 12/29/2020 portable AP chest at 2133 hours FINDINGS: The ET tube is approximately 7 mm above the jeri. [place] range is 2-5 cm. An NG tube is noted in the lower chest within a hiatal hernia. There are patchy infiltrates in the right mid to upper lung and both lower lung zones, increased bila terally since 12/29/2020. Minimal pleural effusions are suggested. No pneumothorax is detected. There is moderate elevation right leaf of the diaphragm. There is evidence of a prominent amount of f ree air beneath the diaphragm raising concern for perforated viscus. IMPRESSION: Prominent amount of free air beneath the diaphragm suggesting ruptured or perforated diaz ow abdominal viscus Bilateral pulmonary infiltrates, right greater than left, increased bilaterally since 12/29 ET tube 7 mm above jeri; ideal range is 2-5 cm NG tube in hiatal hernia Dr. Goowdin telephoned the report including recommendation for repositioning the ET tube 2-3 cm proximal ly and the presence of free air beneath the diaphragm suggesting ruptured hollow abdominal viscus on 12/30/2020 at 0658 hours to ICU nurse Llamas Reviewed, dictated and finalized at location A. SCHOOL MUSIC TEACHER IMPRESSION: Prominent amount of free air beneath the diaphragm suggesting ruptu red or perforated hollow abdominal viscus Bilateral pulmonary infiltrates, right greater than left, increased bilaterally since 12/29 ET tube 7 mm above jeri; ideal range is 2-5 cm NG tube in hiatal hernia Dr. Goodwin telephoned the report including recommendation for repositioning the E T tube 2-3 cm proximally and the presence of free air beneath the diaphragm sug gesting ruptured hollow abdominal viscus on 12/30/2020 at 0658 hours to ICU natividad Llamas
--- NOTE | ~2020-12-29 | XR_ITS ---
EXAMINATION: XR chest 1V portable DATE: 12/29/2020 16:36 INDICATION: Hypoxia TECHNIQUE: frontal view of the chest was obtained. COMPARISON: Chest radiograph dated 05/29/[address] dated 11/02/2020 FINDINGS: Reticular predominant opacities at the bilateral lower lung zones. No pleural effusion or pneumothora x. The cardiomediastinal silhouette is normal. Coronary artery stent. Moderate-sized hiatal hernia wi th nasogastric tube coiled within the intrathoracic portion of the stomach. Calcific formation about a couple healing lateral inferior right rib fractures. 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 IMPRESSION: 1. Opacities in the bilateral lower lung zones which could represent mild pulmonary edema, atelectasi s, pneumonia or some combination thereof. 2. Moderate-sized hiatal hernia with nasogastric tube tip within the intrathoracic portion of the sto mach. Reviewed, dictated and finalized at location A. ODE BUILDER IMPRESSION: 1. Opacities in the bilateral lower lung zones which could represent mild pulmo nary edema, atelectasis, pneumonia or some combination thereof. 2. Moderate-sized hiatal hernia with nasogastric tube tip within the intrathora cic portion of the stomach.
--- NOTE | ~2020-12-29 | XR_ITS ---
EXAMINATION: XR abdomen obstructive series EXAM DATE: 12/29/2020 12:25 INDICATION: K56.609 - Unspecified intestinal obstruction, unspecified... . TECHNIQUE: Frontal upright projection of the upper abdomen, frontal projection of the lower abdomen f or interpretation. Comparison is made to prior examination from 12/08/2020. FINDINGS: There is been redevelopment of severely distended air-filled small bowel. One of these loop s has evidence of wall thickening, edema. Appearance most consistent with obstruction. Only small love unt of ascending colonic stool is identified. Sliver-like region of air along the left hemidiaphragm medially is probably gas within the stomach, n o evidence of gas below the right hemidiaphragm. No free intraperitoneal air suspected. There is a treated abdominal aortic aneurysm with aortobiiliac stent. Lung bases are clear. There is right hip arthroplasty. Bony degenerative changes. Abdominal wall mesh anchors. IMPRESSION: Recurrent small bowel obstruction. Reviewed, dictated and finalized at location B. PTIONIST TELEPHONE OPERATOR
--- NOTE | ~2020-12-29 | XR_ITS ---
EXAMINATION: XR abdomen obstructive series EXAM DATE: 12/30/2020 07:54 INDICATION: Small bowel obstruction. TECHNIQUE: Frontal upright projection of the upper abdomen, frontal projection of the lower abdomen f or interpretation. Comparison is made to prior examination from 12/29/2020. FINDINGS: Large amount of free intraperitoneal gas consistent with perforated viscus. Some improvemen t in amount of small bowel distention. Feeding tube within moderate-sized gastroesophageal hiatal her shay. Surgical, chronic findings unchanged. Interval insertion of left-sided femoral venous line. IMPRESSION: Development of large amount of free intraperitoneal air consistent with perforated viscu s. I phoned results to [facility], left a message with Leny at 12/30/2020 08:29 FURNITURE FABRICATOR who said she would take it back to them. I also called the intensive care unit, spoke with nurse at 12/30/2020 08 :32 FURNITURE FABRICATOR . Reviewed, dictated and finalized at location D. ITURE FABRICATOR IMPRESSION: Development of large amount of free intraperitoneal air consistent with perforated viscus. I phoned results to [facility] Myrick left a message with Leny at 12/30/2020 0 8:29 FURNITURE FABRICATOR who said she would take it back to them. I also called the intensive care unit, spoke with nurse at 12/30/2020 08:32 FURNITURE FABRICATOR .
--- NOTE | ~2020-12-29 | XR_ITS ---
EXAMINATION: XR chest ET placement DATE: 12/29/2020 21:40 INDICATION: Intubation TECHNIQUE: frontal view of the chest was obtained. COMPARISON: Chest radiograph dated 12/29/2020 FINDINGS: Endotracheal tube tip 3.1 cm above the jeri. Hiatal hernia with nasogastric tube tip and proximal s macario port in the intrathoracic portion of the stomach. Unchanged opacities in the bilateral lower lung zones. No pleural effusion or pneumothorax. The cardi omediastinal silhouette is normal. Coronary artery stenting. IMPRESSION: 1. Endotracheal tube tip in expected position 3.1 cm above the jeri. 2. Unchanged opacities in bilateral lower lung zones which could represent mild pulmonary edema, atel ectasis, pneumonia or some combination thereof. 3. Hiatal hernia with nasogastric tube tip in the intrathoracic portion of the stomach. Reviewed, dictated and finalized at location A. RAL LEDGER ACCOUNTANT IMPRESSION: 1. Endotracheal tube tip in expected position 3.1 cm above the jeri. 2. Unchanged opacities in bilateral lower lung zones which could represent mild pulmonary edema, atelectasis, pneumonia or some combination thereof. 3. Hiatal hernia with nasogastric tube tip in the intrathoracic portion of the stomach.
--- NOTE | ~2020-12-29 | XR_ITS ---
EXAMINATION: XR abdomen NG/feed tube insert DATE: 12/29/2020 15:14 INDICATION: Nasogastric tube placement. TECHNIQUE: An upright view of the abdomen was obtained. COMPARISON: CT abdomen and pelvis 12/05/2020, abdomen radiographs 12/29/2020 FINDINGS: The lower abdomen is excluded. There are multiple dilated loops of small bowel. The colon i s normal in caliber. There is a stent graft in abdominal aorta. There are changes of ventral hernia r epair. The nasogastric tube tip is in a moderate-sized hiatal hernia above the diaphragm. IMPRESSION: 1. Nasogastric tube tip in the moderate-sized hiatal hernia above the diaphragm. 2. Dilated small bowel consistent with adynamic ileus versus small bowel obstruction. Reviewed, dictated and finalized at location A. ERCIAL ARTIST IMPRESSION: 1. Nasogastric tube tip in the moderate-sized hiatal hernia above the diaphragm . 2. Dilated small bowel consistent with adynamic ileus versus small bowel obstru ction.
--- NOTE | ~2020-12-29 | XR_ITS ---
EXAMINATION: XR abdomen NG/feed tube rechec EXAM DATE: 12/29/2020 16:03 INDICATION: NG readjusted TECHNIQUE: Frontal projection(s) of the abdomen for interpretation. Comparison is made to prior exami nation from earlier same date. FINDINGS: Feeding tube tip is within a moderate-sized gastroesophageal hiatal hernia, tip is now poi nting toward the left side (was pointing toward the right on prior study). Pointing in this direction may be more likely to reposition itself below the diaphragm. Multiple loops dilated small bowel, small bowel obstruction. Lung bases unremarkable. The cardiomedia stinal silhouette is prominent but magnified on this AP technique. There is aortic arteriosclerosis. IMPRESSION: Feeding tube tip within moderate-sized gastroesophageal hiatal hernia. Reviewed, dictated and finalized at location B. UITING OPERATIONS CONSULTANT IMPRESSION: Feeding tube tip within moderate-sized gastroesophageal hiatal gato claudia.
[2020-12-29 12:22] LABS: Hematocrit 36.8 % (42.0-52.0); Mean Corpuscular HGB Conc 32.6 g/dl (32-36); Mean Corpuscular Hemoglobin 27.5 pg (26-34); Mean Corpuscular Volume 84.2 fl (80-100); Mean Platelet Volume 9.1 fl (7.4-10.4); Platelet Count Result 435 k/mm3 (150-375); Red Blood Count 4.37 M/mm3 (4.6-6.20); Red Cell Distribution Width 17.3 % (11.5-14.5); White Blood Count 7.1 K/mm3 (4.5-10.0)
[2020-12-29 12:23] LABS: Alanine Aminotransferase 15 U/L (4-50); Albumin Level 4.1 g/dL (3.5-5.1); Alkaline Phosphatase 87 U/L (38-126); Anion Gap 15 mmol/L (8-16); Aspartate Amino Transferase 21 U/L (17-59); Bilirubin,Total 0.6 mg/dL (0.2-1.3); Blood Urea Nitrogen 26 mg/dL (9-20); Calcium 9.7 mg/dL (8.4-10.2); Carbon Dioxide 21 mmol/L (22-30); Chloride 100 mmol/L (98-107); Estimated Glomerular Filt Rate > 60; Glucose 198 mg/dL (65-110); Potassium 4.4 mmol/L (3.4-5.0); Sodium 136 mmol/L (137-145)
[2020-12-29 12:24] LABS: Lactic Acid Reflex 3.3 mmol/L (0.7-2.1)
[2020-12-29 13:09] LABS: Band Neutrophils Percent 23 % (0-6); Metamyelocytes Percent 3 %; Monocytes Absolute Manual 0.28 K/mm3 (0.1-0.90); Monocytes Percent Manual 4 % (3-9); Neutrophils Absolute Manual 5.39 K/mm3 (1.3-6.7); Neutrophils Percent Manual 53 % (46-73); Total Cells Counted 100
[2020-12-29 13:10] LABS: Platelet Estimate Increased (Adequate)
--- NOTE | 2020-12-29 14:17 | ADMGEN ---
This patient, Mike Triplett, was admitted to Medical Room 252-01. Patient/family oriented to hospital policies and general routines including ID bracelet, bed and alarms, visiting hours, pain management, procedures, bathroom and other care routines, personal items, smoking policy, room service/diet, and visiting hours. Information on how to activate the Rapid Response Team has been discussed. Patient/Family are encouraged to report perceived risks to care and to ask questions if they do not understand what they are told or what they should do.
[2020-12-29 15:08] LABS: Reflex Lactic Acid Yes or No Add Lactic
[2020-12-29] MEDS: SODIUM CHLORIDE 0.9% IV 1,000 ML 100 ML IV CONT (15:09)
[2020-12-29] MEDS: MORPHINE SULFATE (*CRX) 2 MG/ML INJ IV PUSH ×2 (15:09→17:41)
--- NOTE | 2020-12-29 15:27 | PM.IMHP ---
H&P: HPI History of Present Illness Date/Time: 12/29/20 14:27 Chief Complaint: Abdominal pain and vomiting Narrative: This is a 80-year-old male with multiple medical problems, who I am familiar with due to recent hospitalizations for small bowel obstruction. The patient was admitted in October and November for small bowel obstructions that resolved with NG decompression and bowel rest. The patient was discharged home on 12/10/20 and instructed to follow a low fiber diet, which he reports following strictly. He followed up with Dr. Bacon in our office 5 days ago and was doing well at that time. He reports that through the night last night, he developed nausea and bloating with 3 episodes of vomiting. He reports a large amount of rust-colored brown emesis. After multiple episodes of vomiting, into this morning he began having generalized abdominal pain. The pain was more severe than his previous episodes and was persistent. Therefore, he called our office and was sent for outpatient labs and an abdominal x-ray. The abdominal x-ray showed dilated loops of small bowel, suggesting a small bowel obstruction. Labs showed a normal white blood cell count, platelets 435,000, sodium 136, creatinine 1.1, sodium bicarb 21, and lactic acid 3.3. Dr. Bacon was notified and is directly admitting the patient in the setting of a small bowel obstruction. The patient was seen on the medical floor. He is reporting his abdominal pain is 8/10 at this time. His pain is generalized across his entire abdomen and he feels is more severe than the previous two episodes. He feels bloated and nauseated, and is having a lot of belching. His last bowel movement was yesterday morning around 8:00 am and normal for him. He reports very little flatus today. He denies hematochezia or melena. No new changes from his last hospitalization. To note, the patient has a significant history of peripheral vascular disease status post right lower extremity bypass in August 2020 and he has also had an abdominal aortic endovascular stent graft years ago. He is currently on Brilinta and 81 mg aspirin, which he reports last taking this morning around 8:00 am. He reportedly had a colon resection with colostomy in 1989 for perforated diverticulitis. He eventually had a colostomy takedown. He also had a laparoscopic repair of an incisional hernia with mesh in 2010. He denies a history of small bowel obstructions up until October of this year. Review of Systems Review of Systems: All systems reviewed & are unremarkable except as noted in HPI and below Constitutional: Constitutional: Reports as per HPI, Denies chills, Denies fatigue and Denies fever(s) Eyes: Eyes: Reports no additional eye complaints and Denies change in vision ENT: Reports system reviewed and no additional complaints, except as documented and Reports Normal hearing present Cardiovascular: Cardiovascular: Reports no additional cardiovascular complaints, Denies chest pain and Denies leg edema Respiratory: Respiratory: Reports no additional respiratory complaints, Denies cough and Reports dyspnea (feels like he can't take a deep breath with his abd pain and distention) Gastrointestinal: Gastrointestinal: Reports as per HPI, Reports no additional gastrointestinal complaints, Reports abdominal pain (generalized), Reports belching, Denies melena, Reports bloating, Denies hematochezia, Denies change in bowel habits, Reports coffee ground emesis, Denies diarrhea, Reports nausea, Reports vomiting and Denies hematemesis Genitourinary: Genitourinary: Denies hematuria and Denies dysuria Musculoskeletal: Musculoskeletal: Denies abnormal gait, Denies deformity and Denies joint swelling Integumentary/Breasts: Skin/Breast: Reports wounds (small wound to right lower leg at scar where previous bypass incision is at) and Denies jaundice Neurologic: Reports system reviewed and no additional complaints, except as documented, Denies dizziness, Denies focal
[2020-12-29 15:35] LABS: Lactic Acid 7.2 mmol/L (0.7-2.1)
[2020-12-29 16:17] LABS: Alveolar/Arterial O2 Gradient 104.6 mmHg; Base Excess ABG -8.3 mEq/l (+/-2.0); Fractional Inspired Oxygen 26 %; HCO3 ABG 14.4 mEq/l (22.0-26.0); Oxygen Content ABG 14.7 %vol (16.0-22.0); Oxygen Saturation ABG 88.9 % (95.0-100.0); PO2 ABG 53.4 mmHg (80.0-100.0); PO2 FiO2 Ratio Arterial Blood 2.05 %; Total Hemoglobin 12.5 g/dL (12.0-18.0); pH ABG 7.412 (7.350-7.450)
[2020-12-29 16:19] LABS: Device NASAL CANNULA; Liters per Minute 1.5 LPM; Oxyhemoglobin 83.9 % THb (90.0-100.0); PCO2 ABG 23.1 mmHg (35.0-45.0); Site Drawn RIGHT BRACHIAL
--- NOTE | 2020-12-29 18:30 | WPDCN ---
Assessment and Plan Assessment and plan (1) Small bowel obstruction: Code(s): K56.609 - Unspecified intestinal obstruction, unspecified as to partial versus complete obstruction Status: Acute (2) Lactic acidosis: Code(s): E87.2 - Acidosis Status: Acute (3) Coronary artery disease: Code(s): I25.10 - Atherosclerotic heart disease of [place] coronary artery without angina pectoris Status: Acute (4) Peripheral vascular disease: Code(s): I73.9 - Peripheral vascular disease, unspecified Status: Chronic (5) Type 2 diabetes mellitus: Onset Date: Unknown Qualifiers: Diabetes mellitus exterminator helper termite insulin use: without exterminator helper termite use Diabetes mellitus complication status: with other specified complication Qualified Code(s): E11.69 - Type 2 diabetes mellitus with other specified complication Code(s): E11.9 - Type 2 diabetes mellitus without complications Status: Acute (6) Hypertension: Qualifiers: Hypertension type: primary hypertension Qualified Code(s): I10 - Essential (primary) hypertension Code(s): I10 - Essential (primary) hypertension Status: Acute (7) Hypothyroidism: Code(s): E03.9 - Hypothyroidism, unspecified Status: Acute (8) COPD mixed type: Code(s): J44.9 - Chronic obstructive pulmonary disease, unspecified Status: Acute (9) Obstructive sleep apnea on CPAP: Code(s): G47.33 - Obstructive sleep apnea (adult) (pediatric); Z99.89 - Dependence on other enabling machines and devices Status: Acute Additional Plan The patient was directly admitted to the surgery service today after he was found to have evidence of a recurrent small-bowel obstruction on imaging and the hospitalist service has been consulted for perioperative medical management. Case was discussed with Vicki Myrick NP and Dr. Bacon and at this time he will be placed on bowel rest with NG tube, IV fluids, and analgesics as needed. Given his abdominal pain and increasing lactic acid level there is concern for bowel ischemia and a CT of the abdomen and pelvis would be prudent though at this time the primary service does not feel it necessary at this time as it does not sound as though it would change management coordinator. Given the patient's comorbidities, he is a high surgical risk though Dr. Bacon plans on taking him to the OR tomorrow. The patient's last dose of Brilinta was sometime this morning although I do not think he probably kept it down. There is no evidence of limb ischemia at the time my evaluation. CPAP will be available for the patient to use while hospitalized. As he is NPO we will hold his diabetic medication and initiate sliding scale insulin. No acute issues with regards to COPD. Antihypertensives on hold given drop blood pressure as per HPI. Patient is not having any chest pain though he will need a preop EKG. His home medications will be reviewed and transition to IV form if indicated. Thank you for allowing us to participate in this patient's care. Please do not hesitate to contact us with any questions. Supervising physician for this medical consultation is Dr. Daniela Baig. HPI Data of Consult Date/Time: 12/29/20 18:30 Requesting Physician: Chano Bacon MD Primary Care Provider: Caitlin Ndiaye MD Consult Narrative Narrative: This is a pleasant 80-year-old male with coronary artery disease, peripheral vascular disease, type 2 diabetes, hypertension, hyperlipidemia, COPD, sleep apnea, and hypothyroidism whom the hospitalist service has been consulted for perioperative medical management. He is known to the hospitalist service with previous admissions in both October and November 2020 for small-bowel obstructions and he improved with conservative management each time. He was seen by Dr. Bacon in follow-up on 12/24/2020 a
--- NOTE | 2020-12-29 19:39 | ECG_ITS ---
Measurements Intervals [place] Rate: 80 P: 68 NC: 162 QRS: 86 QRSD: 131 T: 48 QT: 400 QTc: 462 Interpretive Statements SINUS RHYTHM RIGHT BUNDLE BRANCH BLOCK BASELINE ARTIFACT- I, II, III, AVR, AVL, AVF, V1-V6 ABNORMAL ECG Electronically Signed On 12-30-2020 13:00:47 AMPOULE EXAMINER by Daryl Marquez D.O.
--- NOTE | 2020-12-29 21:10 | P.CODEBLUE_ITS ---
Code Blue Note Code Blue Note Time Arrived at Code Blue: Code called at 21:06. Arrived to room at 21:07. <Eulalia BrettAsha Fuchs PA-C - Last Filed: 12/30/20 01:34> Initial Rhythm on Arrival: Sinus rhythm. <Eulalia Solorio DUSTIN Fuchs - Last Filed: 12/30/20 01:34> Airway Management: Pt being bagged on arrival <Eulalia BrettAsha Fuchs PA-C - Last Filed: 12/30/20 01:34> Result of Code Blue: ROSC <Eulalia Solorio DUSTIN Fuchs - Last Filed: 12/30/20 01:34> Cardiac Rhythm Post Code: Sinus rhythm. <Eulalia BrettAsha Fuchs PA-C - Last Filed: 12/30/20 01:34> Code Blue Summary: Cody mushtaq called at 21:06. According to the RN, the patient became a bradycardic and demonstrated agonal breathing. They were unable to feel a pulse and chest compressions were initiated and after approximately 15 seconds the patient seemed to gasp for air and he had a palpable pulse thereafter. Upon arrival to the room he was being bagged and was minimally responsive. Blood pressures were in the 50s to 60s systolic and verbal order was given to start peripheral norepinephrine. Femoral central line was placed by myself and at the same time the patient was intubated by Dr. Bullard due to respiratory distress. Central line was inserted easily without complications. Patient was intubated easily on 1st attempt though it was noted that the patient had aspirated gastric contents into the airway upon insertion of the glide scope. Abdomen appeared more distended than what it had earlier this evening. Capillary refill joseph roximately 3 seconds. Bowel sounds remain quiet. Equally transmitted lung sounds anteriorly and at the flanks. Patient was noted to move extremities and did attempt to shake and nod his head when asked questions. ABG demonstrated mixed metabolic and respiratory acidosis and Dr. Rodriguez was updated on the patient's condition. At this time he is currently on norepinephrine and vasopressin although blood pressures remain in the 70s to 80s systolic. He has been started on imipenem for presumed septic shock which is likely stemming from a GI source though there could be some component of aspiration as well. Benjamin catheter will be inserted for strict I/O. Dr. Bacon was updated post code by Dr. Bullard and at this time he does not feel the patient is stable to go to the OR. Repeat labs are pending at this time. was updated at bedside. Patient remains critical and outlook remains very guarded. <Eulalia Fuchs PA-C - Last Filed: 12/30/20 01:34> Critical Care Time Critical Care Time: Yes <DUSTIN Zuniga Last Filed: 12/30/20 01:34> Total Critical Care Time: 40 <DUSTIN Zuniga Last Filed: 12/30/20 01:34> Attestation: Due to a high probability of clinically significant, life threatening deterioration, the patient required my highest level of preparedness to intervene emergently and I personally spent this critical care time directly and personally managing the patient. This critical care time included obtaining a history; examining the patient; pulse oximetry; ordering and review of studies; arranging urgent treatment with development of a management plan; evaluation of patient's response to treatment; frequent reassessment; and discussions with other providers and the patient's family. It was exclusive of separately billable procedures and treating other patients and teaching time. Please see Assessment and Plan section and the rest of the note for further information on patient assessment and treatment. <Eulalia Fuchs PA-C - Last Filed: 12/30/20 01:34>
[2020-12-29] MEDS: NOREPINEPHRINE 8 MG/D5W 250 ML 8 MG/250 ML BAG 18.75 MG IV CONT (21:12)
--- NOTE | 2020-12-29 21:13 | PC.NURSE ---
ENTERED ROOM TO ASSESS THE PT THE SILKE BARAJAS INFORMED ME THAT THE PTS BP WAS RUNNING LOW. WE CHECKED THE BP MULTIPLE TIMES IN BOTH ARMS MANUALLY AND WITH THE MACHINE EACH TIME WITH A READING NO HIGHER THAN 59/40. 02 SAT WAS 93 ON 3L SO I INCREASED THE 02 TO 4L BECAUSE THE PT WAS ABDOMINALLY BREATHING AND STATED HE FELT SOB. NOTIFIED CHARGE NURSE ALEXIS AND HOSPITALIST HAYLEY ABOUT PT BP READING. HAYLEY AND DR SETHI ARRIVED SHORTLY AFTER ALONG WITH DR NUNEZ. INSTRUCTED TO START LR BOLUS ON PT. IT WAS DECIDED TO TRANSFER THE PT TO ICU 9 DUE TO DECLINING CONDITION. REPORT GIVEN TO SHADE GARCIA.
--- NOTE | 2020-12-29 21:15 | P.PCNBED_ITS ---
Procedures Central Line Placement Left Femoral: Central Line Date: 12/29/20 Central Line Time: 21:15 Performed Emergently - Given emergent patient condition, temporal constraints may have precluded informed consent.: Yes Consent: Performed emergently. Time Out Performed: Yes Patient Position: supine Patient placed on monitor/pulse ox: Yes Provider Prep: mask, sterile gown, sterile gloves, Max. sterile barrier precautions, cap and hand hygiene with conventional soap/water or alcohol based hand rub Central line prep: 2% Chlorhexidine scrub Local anesthesia used: lidocaine 1% Amount of anesthesia used (ml): 3 Sterile US Technique with sterile gel/sterile probe covers: Yes Central line lumen inserted: triple Georgian: 7 Length (cm): 20 Post Procedure: sutured in place, good blood return, all ports aspirated, flushed, capped, transparent dressing, securement product and aseptic technique maintained throughout procedure Post procedure x-ray: other (n/a with femoral placement) Patient tolerated procedure: well
[2020-12-29] MEDS: MIDAZOLAM HCL (*CRX) 2 MG/2 ML VIAL 4 MG IV PUSH (21:20)
[2020-12-29] MEDS: SODIUM CHLORIDE 0.9% IV 1,000 ML 150 ML IV CONT (21:30)
[2020-12-29 21:31] LABS: Alveolar/Arterial O2 Gradient 433.1 mmHg; Base Excess ABG -18.6 mEq/l (+/-2.0); Carboxyhemoglobin 0.3 % THb (0-2.0); Fractional Inspired Oxygen 100 %; HCO3 ABG 9.3 mEq/l (22.0-26.0); Methemoglobin ABG 0.3 %THb (0-1.5); Oxygen Content ABG 15.5 %vol (16.0-22.0); Oxygen Saturation ABG 99.3 % (95.0-100.0); Oxyhemoglobin 96.2 % THb (90.0-100.0); PCO2 ABG 29.1 mmHg (35.0-45.0); PO2 ABG 250.8 mmHg (80.0-100.0); PO2 FiO2 Ratio Arterial Blood 2.51 %; Reduced Hemoglobin 3.2 %THb (0-5.0)
[2020-12-29 21:33] LABS: pH ABG 7.122 (7.350-7.450)
[2020-12-29 21:35] LABS: Device AMBU BAG; Site Drawn LEFT FEMORAL
[2020-12-29] MEDS: VASOPRESSIN INJ 100 UNITS in DEXTROSE 5% 95 ML IV CONT (21:55)
[2020-12-29 22:01] LABS: Basophils Percent Auto 0.3 % (0.2-1.2); Eosinophils Percent Auto 0.3 % (0-4.4); Hematocrit 34.2 % (42.0-52.0); Hemoglobin 10.5 g/dL (14.0-18.0); Immature Granulocyte Absolute 0.13 K/mm3 (0.00-0.031); Immature Granulocyte Percent A 3.4 % (0-0.5); Lymphocytes Absolute Auto 0.68 K/mm3 (0.9-3.2); Lymphocytes Percent Auto 17.6 % (18.3-44.2); Mean Corpuscular HGB Conc 30.7 g/dl (32-36); Mean Corpuscular Hemoglobin 28.2 pg (26-34); Mean Corpuscular Volume 91.7 fl (80-100); Mean Platelet Volume 9.3 fl (7.4-10.4); Monocytes Absolute Auto 0.4 K/mm3 (0.1-0.6); Monocytes Percent Auto 10.6 % (2.6-8.5); Neutrophils Absolute Auto 2.6 K/mm3 (1.3-6.7); Neutrophils Percent Auto 67.8 % (45.5-73.1); Nucleated Red Blood Cells Perc 0.5 % (0.0-0.2); Platelet Count Result 348 k/mm3 (150-375); Red Blood Count 3.73 M/mm3 (4.6-6.20); Red Cell Distribution Width 17.7 % (11.5-14.5); White Blood Count 3.9 K/mm3 (4.5-10.0)
[2020-12-29] MEDS: LACTATED RINGERS 2,200 ML/1,000 ML BAG 999 ML IV CONT ×2 (22:10→23:00)
[2020-12-29 22:11] LABS: Magnesium 1.9 mg/dL (1.6-2.3); Phosphorus 7.6 mg/dL (2.5-4.5)
[2020-12-29 22:12] LABS: INR 1.5
[2020-12-29 22:13] LABS: Partial Thromboplastin Time 44.4 SECONDS (22.3-36.8)
[2020-12-29] MEDS: SODIUM BICARBONATE 8.4% 50 MEQ/50 ML SYRINGE 100 MEQ IV PUSH (22:15)
[2020-12-29 22:16] LABS: Albumin Level 2.6 g/dL (3.5-5.1); Alkaline Phosphatase 131 U/L (38-126); Anion Gap 22 mmol/L (8-16); Aspartate Amino Transferase 31 U/L (17-59); Bilirubin,Total 0.4 mg/dL (0.2-1.3); Blood Urea Nitrogen 25 mg/dL (9-20); CRP 3.2 mg/dL (<1.0); Calcium 8.4 mg/dL (8.4-10.2); Carbon Dioxide 9 mmol/L (22-30); Chloride 107 mmol/L (98-107); Estimated CRCL calculation 25 ml/min; Estimated Glomerular Filt Rate 32; Glucose 120 mg/dL (65-110); Potassium 4.3 mmol/L (3.4-5.0); Sodium 138 mmol/L (137-145)
[2020-12-29 22:19] LABS: Alanine Aminotransferase 26 U/L (4-50)
[2020-12-29] MEDS: PANTOPRAZOLE SODIUM IV 40 MG VIAL IV PUSH (22:23)
[2020-12-29 22:24] LABS: NT Pro B Type Natriuretic Pept 1160 pg/mL (5-100); Troponin I < 0.012 ng/mL (0.000-0.034)
[2020-12-29] MEDS: FENTANYL 2,500MCG/NS250ML(*CRX 2,500 MCG/250 ML BAG IV CONT (23:00)
[2020-12-29 23:05] LABS: Lactic Acid Reflex 13.7 mmol/L (0.7-2.1)
[2020-12-29 23:10] LABS: Procalcitonin 74.9 ng/mL
[2020-12-29] MEDS: LACTATED RINGERS 1,000 ML 999 ML IV CONT (23:30)
[2020-12-29] MEDS: EPINEPHrine INJ 1 MG in DEXTROSE 5% IN WATER 250 ML 15.06 MG IV CONT (23:52)
[2020-12-30] VITALS (46 sets, daily range): BP systolic 59–101; BP diastolic 39–65; PULSE 68–112; RESP 19–30; TEMP 36.1–36.8; O2SAT 90–95
[2020-12-30] MEDS: HYDROCORTISONE SODIUM SUCCINATE 100 MG/2 ML VIAL IV PUSH ×3 (00:29→13:43)
[2020-12-30] MEDS: SODIUM BICARBONATE 8.4% 150 MEQ in WATER, STERILE FOR INJECTION 950 ML 125 MEQ IV CONT ×2 (00:29→08:40)
[2020-12-30 00:41] LABS: Alveolar/Arterial O2 Gradient 242.8 mmHg; Base Excess ABG -18.3 mEq/l (+/-2.0); Carboxyhemoglobin 0.1 % THb (0-2.0); Fractional Inspired Oxygen 50 %; HCO3 ABG 8.6 mEq/l (22.0-26.0); Methemoglobin ABG 0.3 %THb (0-1.5); Oxygen Content ABG 13.7 %vol (16.0-22.0); Oxygen Saturation ABG 94.4 % (95.0-100.0); Oxyhemoglobin 91.4 % THb (90.0-100.0); PO2 ABG 86.8 mmHg (80.0-100.0); PO2 FiO2 Ratio Arterial Blood 1.74 %; Reduced Hemoglobin 8.2 %THb (0-5.0); Total Hemoglobin 10.6 g/dL (12.0-18.0)
[2020-12-30 00:43] LABS: PCO2 ABG 23.9 mmHg (35.0-45.0); pH ABG 7.172 (7.350-7.450)
[2020-12-30 00:44] LABS: Arterial Blood Gas PEEP 5 cmH2O; Arterial Blood Gas Tidal Volume 450 ml; Arterial Blood Gas Vent Mode CMV; Arterial Blood Gas Ventilator rate 22 /MIN; Device VENTILATOR; Site Drawn RIGHT BRACHIAL
--- NOTE | 2020-12-30 01:09 | PC.NURSE ---
This patient, Mike Triplett, was received from [facility] on 12/29/20 at 2040. Patient/family oriented to unit policies and routines
[2020-12-30] MEDS: SODIUM BICARBONATE 8.4% 50 MEQ/50 ML SYRINGE 100 MEQ IV PUSH ×2 (01:23→13:44)
[2020-12-30] MEDS: NOREPINEPHRINE 8 MG/D5W 250 ML 8 MG/250 ML BAG 56.25 MG IV CONT (01:50)
[2020-12-30 01:52] LABS: Add Urine Microscopic? YES; Appearance Urine Cloudy (Clear); Bilirubin Urine Negative (Negative); Blood Urine Negative (Negative); Color Urine Yellow (Yellow); Glucose Urine UA 3+ mg/dL (Negative); Ketones Urine Trace mg/dL (Negative); Leukocyte Esterase Ur Negative LEU/UL (Negative); Mucus Urine Rare /lpf; Nitrate Urine Negative (Negative); Protein Urine Negative (Negative); RBC Urine 0-2 /hpf (0-2); Specific Grav Ur 1.028 (1.001-1.035); WBC Urine 0-3 /hpf
[2020-12-30] MEDS: EPINEPHrine INJ 1 MG in DEXTROSE 5% IN WATER 250 ML 150.6 MG IV CONT ×2 (02:39→04:36)
[2020-12-30 02:48] LABS: Glucose Point of Care 159 mg/dl (65-105)
[2020-12-30 05:10] LABS: Alveolar/Arterial O2 Gradient 251.1 mmHg; Base Excess ABG -20.2 mEq/l (+/-2.0); Fractional Inspired Oxygen 50 %; HCO3 ABG 7.9 mEq/l (22.0-26.0); Oxygen Content ABG 13.9 %vol (16.0-22.0); Oxygen Saturation ABG 90.4 % (95.0-100.0); Oxyhemoglobin 88.3 % THb (90.0-100.0); PCO2 ABG 25.8 mmHg (35.0-45.0); PO2 ABG 76.4 mmHg (80.0-100.0); PO2 FiO2 Ratio Arterial Blood 1.53 %; Total Hemoglobin 11.1 g/dL (12.0-18.0)
[2020-12-30 05:11] LABS: Device VENTILATOR; Site Drawn RIGHT BRACHIAL; pH ABG 7.102 (7.350-7.450)
[2020-12-30 05:12] LABS: Arterial Blood Gas PEEP 5 cmH2O; Arterial Blood Gas Tidal Volume 450 ml; Arterial Blood Gas Vent Mode CMV; Arterial Blood Gas Ventilator rate 22 /MIN
--- NOTE | 2020-12-30 05:13 | WPDPROCEDUR ---
Procedures Intubation Intubation Date: 12/29/20 Intubation Time: 09:15 Consent: EMERGENTLY PERFORMED Sedative: none Laryngoscope: fiber optic video scope Assist device used: fiber optic device ET tube size: 7.5 Tube secured depth (cm): 25 Tube secured location: lips Tube placement confirmation: visualized tube passing through cords, equal breath sounds bilaterally and confirmation by capnometry Patient tolerated procedure: well and no complications Intubation complications: none
[2020-12-30 05:25] LABS: Hematocrit 36.5 % (42.0-52.0); Hemoglobin 10.8 g/dL (14.0-18.0); Mean Corpuscular HGB Conc 29.6 g/dl (32-36); Mean Corpuscular Hemoglobin 27.8 pg (26-34); Mean Corpuscular Volume 94.1 fl (80-100); Mean Platelet Volume 9.4 fl (7.4-10.4); Platelet Count Result 342 k/mm3 (150-375); Red Blood Count 3.88 M/mm3 (4.6-6.20); Red Cell Distribution Width 18.1 % (11.5-14.5)
[2020-12-30 05:51] LABS: Albumin Level 2.6 g/dL (3.5-5.1); Alkaline Phosphatase 212 U/L (38-126); Anion Gap 31 mmol/L (8-16); Bilirubin,Total 0.4 mg/dL (0.2-1.3); Blood Urea Nitrogen 23 mg/dL (9-20); Calcium 7.6 mg/dL (8.4-10.2); Carbon Dioxide 8 mmol/L (22-30); Chloride 97 mmol/L (98-107); Estimated CRCL calculation 24 ml/min; Estimated Glomerular Filt Rate 31; Glucose 193 mg/dL (65-110); Magnesium 1.8 mg/dL (1.6-2.3); Potassium 4.4 mmol/L (3.4-5.0); Sodium 136 mmol/L (137-145)
[2020-12-30 05:56] LABS: Alanine Aminotransferase 32 U/L (4-50); Aspartate Amino Transferase 58 U/L (17-59)
[2020-12-30] MEDS: SODIUM BICARBONATE 8.4% 50 MEQ/50 ML SYRINGE 150 MEQ IV PUSH (06:18)
[2020-12-30 06:26] LABS: Lactic Acid Reflex 20.3 mmol/L (0.7-2.1)
[2020-12-30] MEDS: EPINEPHrine INJ 1 MG in DEXTROSE 5% IN WATER 250 ML 240.96 MG IV CONT (06:31)
[2020-12-30] MEDS: CALCIUM GLUC 2,000 MG/NS 100ML 2,000 MG/100 ML BAG 100 MG IVPB (06:51)
[2020-12-30] MEDS: NOREPINEPHRINE 8 MG/D5W 250 ML 8 MG/250 ML BAG 33.75 MG IV CONT (06:51)
[2020-12-30 06:53] LABS: Band Neutrophils Percent 25 % (0-6); Lymphocytes Absolute Manual 1.14 K/mm3 (1.1-4.5); Metamyelocytes Percent 23 %; Monocytes Absolute Manual 0.21 K/mm3 (0.1-0.90); Monocytes Percent Manual 7 % (3-9); Neutrophils Absolute Manual 0.96 K/mm3 (1.3-6.7); Neutrophils Percent Manual 7 % (46-73); Platelet Estimate Increased (Adequate); Total Cells Counted 100
[2020-12-30 06:54] LABS: Giant Platelets Present
[2020-12-30 06:55] LABS: Burr Cells 1+ (NORMAL)
--- NOTE | 2020-12-30 07:30 | PM.PNGS ---
Progress Note: A&P Assessment and Plan (1) Small bowel obstruction: Code(s): K56.609 - Unspecified intestinal obstruction, unspecified as to partial versus complete obstruction Status: Acute Assessment and Plan: This day I came in early to see Max because of his brief code last night and his acidosis. He is intubated, on the ventilator, and on a maximum dose of 3 pressors in order to try to keep his blood pressure in the upper 80s. This morning review of his chest x-ray from early for the usual check of the endotracheal tube shows that he has some free air under the right diaphragm. I suspect that he had either a vascular event that led to a significant infarct of much of his small bowel with subsequent perforation or a closed loop small-bowel obstruction that twisted and subsequently perforated. In view of his current status with high pressors on the ventilator and still low blood pressure he is at very high risk for coding and having an end of life event if we decided to take him to the OR. He also probably will not do well without going to the OR. Therefore, I called his and discussed these things with her. She states that she was up to the room and saw him last evening after the code and after he was intubated. When she went home she pulled out his advance directive papers and she believes that his wishes are that if he gets to the point where medical care is futile, and there are very little options that will extend his life and if it is extended would lead to significant disability he prefers his attending physicians to decide to make him comfort care. I have discussed this with Dr. Rodriguez and we have both discussed his current condition with her. She as his POA plans to follow this directive and move toward comfort care now. So we will be proceeding along that path. She has decided not to have him try to go to surgery to address whatever is happening in his abdomen at this time. I agree with this decision as patient is 80 y/o and has multiple medical problems that will put him at high risk for a code and either transporting him to or doing the surgery. The patient's will bring in the end of life documents /advanced directives so that we have a copy for the chart. She would like his son and daughter to be able to get here to and possible Dr. Rodriguez will work through this with them. (2) Lactic acidosis: Code(s): E87.2 - Acidosis Status: Acute Assessment and Plan: See notes above. This has been worsening overnight while his hypotension has continued even with pressors. Subjective Subjective Date/Time Seen: 12/30/20 07:30 I came early to see Max this morning. He is on 3 pressors and still only running a blood pressure of about 87 systolic. This morning's chest x-ray early shows free air under the diaphragm consistent with probable small-bowel obstruction, ischemic bowel, and subsequent perforation based on the scenario that started yesterday. Review of Systems Review of Systems: ROS unobtainable: Yes unobtainable due to endotracheal tube and unobtainable due to medical condition Exam Const: General: well developed, alert, awake, in distress and anxious HENMT: Head: normal to inspection Mouth: Yes moist mucous membranes Eyes: Sclera: sclerae normal Pupils: Equal, round and reactive pupils present Neck: Neck: normal visual inspection and no JVD Chest: Chest palpation & inspection: normal inspection of the chest Resp: Effort & Inspection: normal respiratory effort Auscultation: clear to auscultation bilaterally Cardio: Jugular venous distension: no JVD Rate: regular rate GI: Inspection: distended, obesity and visible herniation (At upper abdomen, tender but reducible with pressure.) GI Palp: Yes Tenderness to palpation present (GI), No Rigid due to palpation and Yes Rebound tenderness present Auscultation: absent bowel sounds Rectal Exam: deferred Other: patie
[2020-12-30] MEDS: EPINEPHrine INJ 1 MG in DEXTROSE 5% IN WATER 250 ML 301.2 MG IV CONT (07:32)
[2020-12-30] MEDS: SODIUM BICARBONATE 8.4% 50 MEQ/50 ML SYRINGE IV PUSH ×2 (08:18→09:43)
[2020-12-30 08:22] LABS: Reflex Lactic Acid Yes or No Add Lactic
--- NOTE | 2020-12-30 08:23 | PC.NURSE ---
Found patient on 30mcg/min of norepinephrine upon morning assessment of patient.
[2020-12-30] MEDS: EPINEPHrine INJ 4 MG in DEXTROSE 5% IN WATER 250 ML 76.2 MG IV CONT ×2 (08:28→11:54)
[2020-12-30] MEDS: FLUCONAZOLE 400 MG/NACL 200 ML 400 MG/200 ML BAG 100 MG IVPB (08:30)
[2020-12-30] MEDS: PANTOPRAZOLE SODIUM IV 40 MG VIAL IV PUSH (08:33)
[2020-12-30] MEDS: MINERAL OIL/WHITE PETROLATUM OINTMENT 1 APPLIC EACH EYE (08:34)
[2020-12-30] MEDS: LEVOTHYROXINE SODIUM INJ 100 MCG/5 ML VIAL 75 MCG IV PUSH (08:36)
[2020-12-30 08:53] LABS: Glucose Point of Care 216 mg/dl (65-105)
--- NOTE | 2020-12-30 09:22 | WPDCNINT ---
Assessment and Plan Assessment and plan (1) Acute respiratory failure: Code(s): J96.00 - Acute respiratory failure, unspecified whether with hypoxia or hypercapnia Status: Acute (2) Septic shock: Code(s): A41.9 - Sepsis, unspecified organism; R65.21 - Severe sepsis with septic shock Status: Acute (3) Ischemic bowel disease: Code(s): K55.9 - Vascular disorder of intestine, unspecified Status: Acute (4) Small bowel obstruction: Code(s): K56.609 - Unspecified intestinal obstruction, unspecified as to partial versus complete obstruction Status: Acute (5) Peritonitis: Code(s): K65.9 - Peritonitis, unspecified Status: Acute (6) Perforation bowel: Code(s): K63.1 - Perforation of intestine (nontraumatic) Status: Acute (7) Multiorgan failure: Status: Acute (8) Acute kidney injury: Code(s): N17.9 - Acute kidney failure, unspecified Status: Acute (9) Metabolic acidosis: Code(s): E87.2 - Acidosis Status: Acute Additional Plan Patient admitted initially with small-bowel obstruction. It appears the patient has developed ischemic gut and bowel perforation. KUB and chest x-ray this morning confirmed free intraperitoneal air. His lactic acidosis has been worsening despite aggressive volume resuscitation. Patient continues to have poor urine output with worsening renal function and severe acidosis. He has IV fluid bicarb and has received several pushes of IV bicarb. He is on imipenem and I added Diflucan this morning. He is on very high dose of 3 vasopressors including Levophed vasopressin and epinephrine. Stress dose steroids were added yesterday on arrival to ICU. I reviewed patient's labs imaging and examined the patient this morning. I discussed case with Dr. Bacon. And we both spoke to patient's by phone. We went over patient's current status including multiorgan failure, ischemic bowel, perforated bowel, his complicated abdominal history with history of multiple surgeries in the past, severe septic shock, acute kidney injury, acidosis and acute respiratory failure. We discussed goals of care with patient's . We discussed patient's poor prognosis without surgery and high risk of dying during surgery. After review of all the information and in consideration of patient's advance directive, patient's stated that she does not think the patient would want to pursue any further aggressive interventions including surgery at this time. She stated that she would like to make him comfort care and treat his pain and discomfort and let the nature takes its course. She told us that she has been in communication with patient's children and would like all 3 of them to visit him before proceeding with palliative extubation and comfort measures. We discussed option of making him DNR at this time until the family arrives which she agreed to. She requested the patient be made DNR and now will not resuscitated in the event of cardiac arrest but continue current therapy to keep him alive until they are able to visit him and say their goodbyes. Total Critical Care Time - 45 minutes Due to a high probability of clinically significant, life threatening deterioration, the patient required my highest level of preparedness to intervene emergently and I personally spent this critical care time directly and personally managing the patient. This critical care time included obtaining a history; examining the patient; pulse oximetry; ordering and review of studies; arranging urgent treatment with development of a management plan; evaluation of patient's response to treatment; frequent reassessment; and discussions with other providers. It was exclusive of separately billable procedures and treating other patients and teaching time. Please see Assessment and Plan section and the rest of the note for further information on patient assessment and treatment I
[2020-12-30 09:26] LABS: Lactic Acid 22.6 mmol/L (0.7-2.1)
[2020-12-30] MEDS: NEOMYCIN/POLYMYXIN/BACITRACIN OINTMENT 15 GM TUBE 1 APPLIC TOPICAL (09:43)
[2020-12-30] MEDS: NOREPINEPHRINE 8 MG/D5W 250 ML 8 MG/250 ML BAG 108.75 MG IV CONT (10:37)
[2020-12-30] MEDS: INSULIN ASPART (*BKC) 100 UNITS/ML SUB-Q (11:56)
[2020-12-30 11:57] LABS: Glucose Point of Care 207 mg/dl (65-105)
[2020-12-30] MEDS: NOREPINEPHRINE BITARTRATE 16 MG in DEXTROSE 5% IN WATER 234 ML 52.5 MG IV CONT (13:11)
--- NOTE | 2020-12-30 13:30 | PM.EVENT ---
Event Note Event Note Event Note: I met with patient's at bedside and then later with both her and her daughter. I again updated them with patient's current condition including acute respiratory failure, septic shock, bowel ischemia, SHAYNA, acidosis, perforated bowel. I also explained them the current treatment plan and expected prognosis. I revisited the treatment plan in person that I discussed earlier with patient's on phone of keeping him DNR and continuing current treatment under patient's son gets here this afternoon and at that time the family will proceed with palliative extubation and comfort care. They both verbalized understanding and are aware and agreeable with the plan. I answered their questions Total time spent 20 minutes
[2020-12-30] MEDS: MORPHINE SULFATE INJ (*CRX) 10 MG/ML AMP 5 MG IV PUSH (15:13)
[2020-12-30] MEDS: LORazepam INJ (*CRX) 2 MG/ML VIAL IV PUSH (15:13)
--- NOTE | 2020-12-30 15:29 | PM.IMPN ---
Progress Note: A&P Assessment and Plan (1) Small bowel obstruction: Code(s): K56.609 - Unspecified intestinal obstruction, unspecified as to partial versus complete obstruction Status: Acute (2) Lactic acidosis: Code(s): E87.2 - Acidosis Status: Acute (3) Coronary artery disease: Code(s): I25.10 - Atherosclerotic heart disease of [place] coronary artery without angina pectoris Status: Acute (4) Peripheral vascular disease: Code(s): I73.9 - Peripheral vascular disease, unspecified Status: Chronic (5) Type 2 diabetes mellitus: Onset Date: Unknown Qualifiers: Diabetes mellitus nursing home insulin use: without nursing home use Diabetes mellitus complication status: with other specified complication Qualified Code(s): E11.69 - Type 2 diabetes mellitus with other specified complication Code(s): E11.9 - Type 2 diabetes mellitus without complications Status: Acute (6) Hypertension: Qualifiers: Hypertension type: primary hypertension Qualified Code(s): I10 - Essential (primary) hypertension Code(s): I10 - Essential (primary) hypertension Status: Acute (7) Hypothyroidism: Code(s): E03.9 - Hypothyroidism, unspecified Status: Acute (8) COPD mixed type: Code(s): J44.9 - Chronic obstructive pulmonary disease, unspecified Status: Acute (9) Obstructive sleep apnea on CPAP: Code(s): G47.33 - Obstructive sleep apnea (adult) (pediatric); Z99.89 - Dependence on other enabling machines and devices Status: Acute Additional Plan The patient was directly admitted to the surgery service on 12/29/2020 with recurrent small-bowel obstruction on imaging. Hospice service was consulted for medical management. # Small bowel obstruction NG decompression, bowel rest, IV fluid, analgesics as needed # bowel ischemia with perforation as evidenced by worsening lactic acidosis and free air under the diaphragmatic. # acute renal failure # cardio pulmonary PE a arrest likely due to underlying acidosis sedated and intubated # diabetes mellitus type 2 on SSI # acute respiratory failure on mechanical ventilation # severe lactic acidosis worsening # multiorgan failure # septic shock on 3 vasopressors Planned for comfort based care awaiting son to arrive from [facility]. Subjective Date/time seen: 12/30/20 15:29 Interval history: Events noted. Met with the family including and her daughter at bedside. Patient intubated and sedated hypotensive. Review of Systems Review of Systems: ROS unobtainable: Yes unobtainable due to endotracheal tube Exam Narrative: General: Pt is intubated and on mechanical ventilation, appears in mild discomfort Lungs/Chest: Trachea central in mild respiratory distress Cardiac: RRR. Normal S1 S2. No murmurs Circulation: Bilateral feet are cold Abdomen: Abdomen is distended, absent bowel sounds. Diffuse tenderness to palpation Extremities: No clubbing, cyanosis, 1+ pitting edema present in right lower extremity, : Benjamin in place Neurologic: Sedated on vent Objective Data Vital Signs Vital Signs: Vital Signs - 24 hr 12/29/20 17:12 12/29/20 17:40 12/29/20 20:00 Temperature 96.5 F L Pulse Rate 89 89 Respiratory Rate 16 16 Blood Pressure 133/78 Pulse Oximetry 87 L 91 91 12/29/20 20:45 12/29/20 21:12 12/29/20 21:18 Temperature 97.6 F Pulse Rate 81 73 66 Respiratory Rate 25 H Blood Pressure 70/44 L 70/44 L Pulse Oximetry 90 98 12/29/20 21:30 12/29/20 21:55 12/29/20 22:00 Temperature Pulse Rate 76 72 70 Respiratory Rate 28 H Blood Pressure 54/34 L 68/42 L 72/42 L Pulse Oximetry 97 12/29/20 22:27 12/29/20 22:53 12/29/20 23:00 Temperature Pulse Rate 67 69 69 Respiratory Rate 26 H Blood Pressure Pulse Oximetry 99 96 12/29/20 23:50 12/29/20 23:52 12/30/20 00:00 Temperature 97.5 F L Pulse Rate 69 70 69 Respirato
--- NOTE | 2020-12-30 18:14 | PC.NURSE ---
Patient at 1529. Physician notified.
--- NOTE | 2021-01-02 12:58 | PM.DDS ---
Discharge Summary Date and Time Date of : 12/30/20 Time of : 15:29 Provider Pronounced By: Caryl Gonsalez RN and Emelyn Tapia RN Probable Cause of Probable Cause of : primary: Septic shock with multiple organ failure Secondary and contributing: Suspected intestinal ischemia with perforation Hypotension Small-bowel obstruction Acute respiratory failure Acute renal failure Episode of pulseless electrical activity of the heart ( 12/29/2020 Worsening lactic acidosis Summary Hospital Course: Patient was admitted urgently to the hospital on the day prior to his . Patient had called my office having been seen in the office just 1 week before in follow-up for a previous recent small-bowel obstruction that resolved on its own with NG decompression and observation. He was having some vomiting starting at 5:30 a.m. on 12/29/2020. Therefore, I requested that he immediately come as an outpatient to [facility] and get labs and a set of abdominal x-rays done STAT and pt to be held in the Radiology waiting room in case admission required. Apparently the patient presented for those at around noon. Because the x-ray suggested repeat small-bowel obstruction, the patient was admitted,labs reviewed, and our nurse practitioner, Vicki, performed a history and physical on him as documented. ( Please see details in the chart). Because of his diabetes and other significant medical problems we also consult with the hospitalist service to follow him with us. Once I had gotten out of surgery for the day I then saw the patient at approximately 5:30 p.m. when his last fairly normal recorded blood pressure was present. He did receive some morphine 45 minutes prior to me seeing him and so he was somewhat sedated but was answering questions. On exam and exam at that time I did not feel that he had an acute abdomen. I had a thorough discussion with the patient and his regarding a plan to proceed the following day with an exploratory laparotomy or possible diagnostic laparoscopy with release of small-bowel obstruction since we thought that this was the most likely cause of his abdominal pain/nausea /vomiting. Patient had had multiple CT scans in the recent past due to his previous episodes of small-bowel obstruction, so I was trying to avoid further exposure to radiation. And the plain x-ray was fairly clear Regarding bowel obstructive signs and there was no free air. However, soon after my visit apparently his nurses became more concerned because his blood pressure was significantly low. Subsequently as recorded in the chart, the patient had to be moved to ICU due due to persistent hypotension and in fact slightly later that evening he had his event of pulseless electric activity, was coded for a short period of time including the necessity for chest compressions. Subsequently a femoral central line was placed so that pressors could be started and the patient had to be intubated at the time of his code. He was maintained in ICU overnight with the assistance of the hospitalist service and the ladle builder. I then saw the patient at 7:30 a.m. in the morning and that note is well documented in the chart (2020 at 7:30 a.m.). At that time I had reviewed his chute puller chest x-ray prior to the radiologist's reading it and noted what appeared to be free air under the diaphragm. The patient was on a maximum level of iv pressors, Including vasopressin, Levophed, and epinephrine without significant improvement his blood pressure able only to maintain a systolic blood pressure around 87 to 88 systolic. Therefore, as documented I discussed the situation with his who is his power of civil litigation attorney for healthcare. She had found his advance directives at home and felt that since he was unlikely to tolerate transportation and a significant abdominal surgery, that he would prefer to move way from somewhat futile medical care and romero
== END 2020-12-30 15:29 | disposition expired | DRG 871 ==
LOC: ANH2MED 14:07 → ANHICU 21:19
PROVIDERS: Internal Medicine; Nurse Practitioner Family; Physician Assistant; Admitting Provider Surgery; PCP Family Medicine; Visit Provider Internal Medicine
DX: A41.9 Sepsis, unspecified organism (principal); J96.00 Acute respiratory failure, unspecified whether with hypoxia or hypercapnia; R65.21 Severe sepsis with septic shock; K63.1 Perforation of intestine (nontraumatic); K65.9 Peritonitis, unspecified; K56.609 Unspecified intestinal obstruction, unspecified as to partial versus complete obstruction; N17.9 Acute kidney failure, unspecified; K55.9 Vascular disorder of intestine, unspecified; E87.4 Mixed disorder of acid-base balance; I46.9 Cardiac arrest, cause unspecified; E11.51 Type 2 diabetes mellitus with diabetic peripheral angiopathy without gangrene; I25.10 Atherosclerotic heart disease of native coronary artery without angina pectoris; J44.9 Chronic obstructive pulmonary disease, unspecified; I10 Essential (primary) hypertension; G47.33 Obstructive sleep apnea (adult) (pediatric); N40.0 Benign prostatic hyperplasia without lower urinary tract symptoms; E03.9 Hypothyroidism, unspecified; E78.5 Hyperlipidemia, unspecified; Z66 Do not resuscitate; Z51.5 Encounter for palliative care; Z79.02 Long term (current) use of 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/antiplatelets; Z79.84 Long term (current) use of oral hypoglycemic drugs; Z79.899 Other long term (current) drug therapy; Z87.891 Personal history of nicotine dependence; Z95.5 Presence of coronary angioplasty implant and graft; Z99.89 Dependence on other enabling machines and devices
CPT/HCPCS: 31500; 36415; 36600; 71045; 74018; 74019; 80053; 81001; 82375; 82805; 82948; 83050; 83605; 83735; 83880; 84100; 84145; 84484; 85025; 85610; 85730; 86140; 87040; 87076; 92950; 93005; 94002; 94003; 96361; 96365; 96366; 96367; 96368; 96375; 96376; A9270; C1751; C9113; G0378; G0379; J0131; J0171; J0610; J0743; J1450; J1720; J1815; J2060; J2250; J2270; J3010; J7030; J7060; J7120